=== PATIENT | male | born 1960 | race Caucasian/White ===

== ENCOUNTER 2023-09-19 23:51 | Inpatient (IN) | payer MEDICAID, SELFPAY ==
[2023-09-19 23:52] VITALS: BP 128/71; PULSE 67; RESP 18; TEMP 36.7; O2SAT 99; BMI 22.6
--- NOTE | 2023-09-20 00:12 | ECG_ITS ---
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 Measurements Intervals [place] Rate: 64 P: 57 OR: 200 QRS: 89 QRSD: 154 T: 45 QT: 474 QTc: 492 Interpretive Statements SINUS RHYTHM RIGHT BUNDLE BRANCH BLOCK [120+ ms QRS DURATION, UPRIGHT V1, 40+ ms S IN I/aVL/V4/V5/V6] No previous ECG available for comparison Electronically Signed On 09-20-2023 6:52:44 GENERAL ACCOUNTANT by Christo Durbin M.D. [id number]
--- NOTE | 2023-09-20 00:12 | CTR_ITS ---
PROCEDURE INFORMATION: Exam: CT Abdomen And Pelvis Without Contrast Exam date and time: 09/20/2023 12:49 AM Age: 63 years old Clinical indication: Abdominal pain; Generalized; Prior surgery; Surgery date: 6+ months; Surgery type: Gb/appy, intestines removed; Patient HX: Patient having halluncinations, nausea, vomitting, patient says he has had intermittent pain since his surgeries over the summer; Additional info: Abd pain, n/v/d TECHNIQUE: Imaging protocol: Computed tomography of the abdomen and pelvis without contrast. Radiation optimization: All CT scans at this facility use at least one of these dose optimization techniques: automated exposure control; mA and/or kV adjustment per patient size (includes targeted exams where dose is matched to clinical indication); or iterative reconstruction. COMPARISON: No relevant prior studies available. RADIATION DOSE METRICS: Total DLP (mGy-cm): 368 FINDINGS: Liver: Normal. No mass. Gallbladder and bile ducts: Normal. No calcified stones. No ductal dilation. Pancreas: Normal. No ductal dilation. Spleen: Normal. No splenomegaly. Adrenal glands: There is a 7 mm hypodensity in the left adrenal gland measuring -7 Hounsfield units consistent with a benign adrenal adenoma. Kidneys and ureters: There is a nonobstructing 3 mm stone in the right kidney. No hydronephrosis or hydroureter. Stomach and bowel: The cecum is located in the left upper quadrant. Moderate stool burden with no bowel obstruction. Appendix: The appendix is absent. Intraperitoneal space: Unremarkable. No free air. No significant fluid collection. Vasculature: Unremarkable. No abdominal aortic aneurysm. Lymph nodes: Unremarkable. No enlarged lymph nodes. Urinary bladder: Unremarkable as visualized. Reproductive: Unremarkable as visualized. Bones/joints: Moderate degenerative disc disease at L2-L3. Soft tissues: Unremarkable. CT/CT abdomen pelvis wo con [id number] IMPRESSION: 1. The gallbladder is present and images normally. This has not been removed. 2. The appendix is absent. 3. No bowel anastomoses identified to suggest prior bowel resection. 4. Moderate stool burden with no bowel obstruction or inflammatory process associated with the bowel. 5. Incidental note is made of the cecum located in the left upper quadrant. COMMENTS: Consistent with the [employer]'s Incidental Findings Committee white paper (J Am Dorcas Radiol 2017): Any incidental adrenal lesion less than 1 cm is likely benign. No follow-up imaging is recommended for these lesions per consensus recommendations based on imaging criteria. Further lab evaluation could be pursued if warranted based on clinical findings.
--- NOTE | 2023-09-20 00:23 | ED.C_ITS ---
Documented by User: CORWIN Hugo 09/22/23 14:07 HPI - Psych 2 General: Chief Complaint: Psychiatric Symptoms Stated Complaint: visual/auditory hallucinations Time Seen by Provider: 09/20/23 00:04 History of Present Illness: 63-year-old male patient comes in today from home for concerns of increasing auditory hallucinations. Family had called EMS to transport patient due to increasing paranoid thoughts of the police out to get him and wandering away from home and hiding in the [place]. Patient is cooperative and calm. Patient reports that he has not been taking his medicine like he should because his stomach's been hurting him for the last week. Patient reports when he takes his medicine his stomach hurts. Patient appears nontoxic. I talk with family member his daughter who his his main caregiver she helps manage his medications and make sure that they are set up and he is taking them. She is known that he has missed several doses of his medicine over the last week. Patient endorses not taking his medication but did take his medicine today as set up. Besides schizophrenia and bipolar disorder, patient also has diabetes, neuropathy, chronic constipation, angina, GERD. Review of Systems 2 General: Reports: 10 or more systems reviewed and unremarkable except in HPI and below GI: Reports: abdominal pain and diarrhea; Denies: nausea, vomiting or constipation : Denies: difficulty urinating PFSH ED 2 PFSH: Family History (Updated 08/22/23 @ 08:37 by Lorenza Carreon LPN) Grandmother Cancer paternal Diabetes Grandfather Cancer paternal Mother Diabetes Denies family history of Heart disease Chronic kidney disease (CKD) Thyroid disease Stroke Physical Exam 2 Const: COMMON NORMALS: alert HENMT: COMMON NORMALS: normocephalic HEAD & SCALP: normocephalic Neck/C-Spine: COMMON NORMALS: full ROM Chest: COMMONS NORMALS: normal palpation of entire chest wall Resp: COMMON NORMALS: normal respiratory effort GI: PALPATION: Yes Firmness to palpation present (GI) (Mildly distended), Yes Tenderness to palpation present (GI) (General tenderness) and Yes Other GI palpation findings present (Central line abdominal scar from sternum to pubis) : COMMON NORMALS: Yes no CVA tenderness BLADDER/KIDNEY EXAM: Yes no CVA tenderness Back/Pelvis: COMMON NORMALS: no CVA tenderness Extremity: COMMON NORMALS: no pedal edema Neuro: SENSORIUM/ORIENTATION: Yes alert Psych: COMMON NORMALS: Normal thought process present and cooperative A PPEARANCE: Yes unkempt ATTITUDE: Yes calm and Yes Guarded attititude/behavior present ACTIVITY/MOTOR BEHAVIOR: Yes appropriate eye contact SPEECH: Yes soft MOOD & AFFECT: Yes anxious THOUGHT PROCESS: Normal thought process present THOUGHT CONTENT: No Suicidality present and No Homicidality present ATTENTION/CONCENTRATION: Yes attention grossly intact INSIGHT: Fair insight present (Psych) JUDGEMENT: Fair judgement present (Psych) Skin: COMMON NORMALS: turgor normal GENERAL SKIN EXAM: turgor normal Course 2 Vital Signs: Vital signs: Vital Signs Temperature 97.9 F 09/22/23 06:00 Pulse Rate 104 H 09/22/23 06:00 Respiratory Rate 18 09/22/23 06:00 Blood Pressure 100/66 09/22/23 06:00 Pulse Oximetry 99 09/22/23 06:00 Oxygen Delivery Me thod Room Air 09/21/23 06:00 MDM - Psych Medical Decision Making Patient came [facility] for concerns of increasing paranoid thoughts and auditory hallucinations with wandering from home. Daughter who manages patient's medications for him noted that patient has been hiding in the [place] that time and avoiding contact. She has also noticed patient had not been taking his meds like he has been set up for. Daughter is concerned patient may run away or may become ill from not taking his routine health medications. Patient appears nontoxic. Lungs are clear to auscultation. Abdomen soft but slightly distended and tender to touch. Patient does have a central line abdominal scar from prior surgery. Patient states he had part of his bowel removed and also had his gallbladder and appendix removed. Patient cannot say why he had part of his bowel removed. Differential diagnosis includes but not limited to acute psychosis, chronic schizophrenia, bowel obstruction, gastroenteritis, diverticulitis, anxiety, poor medication compliance. Lab Data 09/20/23 00:42 09/20/23 00:42 Radiology Impressions Abdomen/Pelvis CT 09/20/23 00:12 IMPRESSION: 1. The gallbladder is present and images normally. This has not been removed. 2. The appendix is absent. 3. No bowel anastomoses identified to suggest prior bowel resection. 4. Moderate stool burden with no bowel obstruction or inflammatory process associated with the bowel. 5. Incidental note is made of the cecum located in the left upper quadrant. COMMENTS: Consistent with the [employer]'s Incidental Findings Committee white paper (J Am Dorcas Radiol 2017): Any incidental adrenal lesion less than 1 cm is likely benign. No follow-up imaging is recommended for these lesions per consensus recommendations based on imaging criteria. Further lab evaluation could be pursued if warranted based on clinical findings. Laboratory Results WBC 6.73 10^3/uL (3.29-11.43) 09/20/23 00:42 RBC 4.70 10^6/uL (3.85-5.65) 09/20/23 00:42 Hgb 14.10 g/dL (11.27-16.99) 09/20/23 00:42 Hct 40.4 % (37-53) 09/20/23 00:42 MCV 86.0 fl (82-101) 09/20/23 00:42 MCH 30.0 pg (27-33) 09/20/23 00:42 MCHC 34.9 g/dL (30-55) 09/20/23 00:42 RDW 11.9 % (12.1-15.1) L 09/20/23 00:42 Plt Count 205 10^3/cmm (157-399) 09/20/23 00:42 MPV 8.2 fL (7.4-10.4) 09/20/23 00:42 Neut % (Auto) 53.8 % 09/20/23 00:42 Lymph % (Auto) 35.5 % 09/20/23 00:42 [place] % (Auto) 8.3 % 09/20/23 00:42 Eos % (Auto) 1.5 % 09/20/23 00:42 Baso % (Auto) 0.6 % 09/20/23 00:42 Neut # (Auto) 3.62 10^3/uL (1.8-7.7) 09/20/23 00:42 Lymph # (Auto) 2.4 10^3/uL (0.8-4.8) 09/20/23 00:42 [place] # (Auto) 0.6 10^3/uL (0.2-0.9) 09/20/23 00:42 Eos # (Auto) 0.1 10^3/uL (0.0-0.8) 09/20/23 00:42 Baso # (Auto) 0.0 10^3/uL (0.0-0.1) 09/20/23 00:42 Nucleated RBC % (auto) 0 % 09/20/23 00:42 Nucleated RBCs # 0.0 /100WBC 09/20/23 00:42 Sodium 139 mmol/L (136-145) 09/20/23 00:42 Potassium 3.6 mmol/L (3.5-5.1) 09/20/23 00:42 Chloride 100 mmol/L (98-107) 09/20/23 00:42 Carbon Dioxide 23 mmol/L (22-29) 09/20/23 00:42 Anion Gap 19.6 (5-19) H 09/20/23 00:42 BUN 15 mg/dL (8-23) 09/20/23 00:42 Creatinine 0.7 mg/dL (0.7-1.2) 09/20/23 00:42 GFR Calculation 114.3 mL/min (90-130) 09/20/23 00:42 Glucose 93 mg/dL (65-115) 09/20/23 00:42 Calculated Osmolality 289 mOsm/kg (285-295) 09/20/23 00:42 Calcium 10.4 mg/dL (8.5-10.5) 09/20/23 00:42 Total Bilirubin 0.6 mg/dL (0.15-1.2) 09/20/23 00:42 AST 14 U/L (0-40) 09/20/23 00:42 ALT 19 U/L (0-41) 09/20/23 00:42 Alkaline Phosphatase 85 U/L (40-130) 09/20/23 00:42 Troponin T Baseline < 6 ng/L (0-15) 09/20/23 00:42 Total Protein 7.0 g/dL (6.6-8.7) 09/20/23 00:42 Albumin 4.7 g/dL (3.5-5.2) 09/20/23 00:42 Globulin 2.3 g/dL (1.3-4.6) 09/20/23 00:42 Lipase 25 U/L (13-60) 09/20/23 00:42 TSH 3.62 uIU/mL (0.27-4.20) 09/20/23 00:42 Urine Color Yellow (Yellow) 09/20/23 01:30 Urine Appearance Clear (CLEAR) 09/20/23 01:30 Urine pH 8 (5-7) H 09/20/23 01:30 Ur Specific [place] 1.010 (1.005-1.030) 09/20/23 01:30 Urine Protein Neg (Negative) 09/20/23 01:30 Urine Glucose (UA) Norm (Normal) 09/20/23 01:30 Urine Ketones Negative (Negative) 09/20/23 01:30 Urine Blood Neg (Negative) 09/20/23 01:30 Urine Nitrate Negative (Negative) 09/20/23 01:30 Urine Bilirubin Neg (Negative) 09/20/23 01:30 Prot Sulfosalicylic Acd Negative (Negative) 09/20/23 01:30 Urine Urobilinogen Neg mg/dL (Negative) 09/20/23 01:30 Ur Leukocyte Esterase Negative (Negative) 09/20/23 01:30 Salicylates < 0.3 mg/dL (3-10) L 09/20/23 00:42 Urine Opiates Screen Negative ng/mL (Negative) 09/20/23 01:30 Acetaminophen < 5.0 ug/mL (10-30) L 09/20/23 00:42 Ur Barbiturates Screen Negative ng/mL (Negative) 09/20/23 01:30 Ur Phencyclidine Scrn Negative ng/mL (Negative) 09/20/23 01:30 Ur Amphetamines Screen Negative ng/mL (Negative) 09/20/23 01:30 U Benzodiazepines Scrn Positive ng/mL (Negative) H 09/20/23 01:30 Urine Cocaine Screen Negative ng/mL (Negative) 09/20/23 01:30 U Marijuana (THC) Screen Negative ng/mL (Negative) 09/20/23 01:30 Ethyl Alcohol < 10 mg/dL (0-10) 09/20/23 00:42 Discharge Plan Discharge Patient Disposition: Admitted As Inpatient Admit Provider: Jus Figueroa Clinical Impression: Acute psychosis, Noncompliance with medication regimen Condition: Stable Coding Level of Care Code ED Neurology Director for Chg Fwd Documented by User: Michael Dugan DO 09/20/23 05:05 HPI - Psych 2 General: Chief Complaint: Psychiatric Symptoms Stated Complaint: visual/auditory hallucinations Time Seen by Provider: 09/20/23 00:04 [facility] ED 2 PFSH: Family History (Updated 08/22/23 @ 08:37 by Lorenza Carreon LPN) Grandmother Cancer paternal Diabetes Grandfather Cancer paternal Mother Diabetes Denies family history of Heart disease Chronic kidney disease (CKD) Thyroid disease Stroke Course 2 Vital Signs: Vital signs: Vital Signs Temperature 97.9 F 09/22/23 06:00 Pulse Rate 104 H 09/22/23 06:00 Respiratory Rate 18 09/22/23 06:00 Blood Pressure 100/66 09/22/23 06:00 Pulse Oximetry 99 09/22/23 06:00 Oxygen Delivery Me thod Room Air 09/21/23 06:00 [facility] - Psych Medical Decision Making Patient came in tonight for concerns of increasing paranoid thoughts and auditory hallucinations with wandering from home. Daughter who manages patient's medications for him noted that patient has been hiding in the [place] that time and avoiding contact. She has also noticed patient had not been taking his meds like he has been set up for. Daughter is concerned patient may run away or may become ill from not taking his routine health medications. Patient appears nontoxic. Lungs are clear to auscultation. Abdomen soft but slightly distended and tender to touch. Patient does have a central line abdominal scar from prior surgery. Patient states he had part of his bowel removed and also had his gallbladder and appendix removed. Patient cannot say why he had part of his bowel removed. Differential diagnosis includes but not limited to acute psychosis, chronic schizophrenia, bowel obstruction, gastroenteritis, diverticulitis, anxiety, poor medication compliance. Dr. Figueroa was consulted who agreed to accept the patient to [facility] for further evaluation and treatment. Lab Data 09/20/23 00:42 09/20/23 00:42 Radiology Impressions Abdomen/Pelvis CT 09/20/23 00:12 IMPRESSION: 1. The gallbladder is present and images normally. This has not been removed. 2. The appendix is absent. 3. No bowel anastomoses identified to suggest prior bowel resection. 4. Moderate stool burden with no bowel obstruction or inflammatory process associated with the bowel. 5. Incidental note is made of the cecum located in the left upper quadrant. COMMENTS: Consistent with the [employer]'s Incidental Findings Committee white paper (J Am Dorcas Radiol 2017): Any incidental adrenal lesion less than 1 cm is likely benign. No follow-up imaging is recommended for these lesions per consensus recommendations based on imaging criteria. Further lab evaluation could be pursued if warranted based on clinical findings. Laboratory Results WBC 6.73 10^3/uL (3.29-11.43) 09/20/23 00:42 RBC 4.70 10^6/uL (3.85-5.65) 09/20/23 00:42 Hgb 14.10 g/dL (11.27-16.99) 09/20/23 00:42 Hct 40.4 % (37-53) 09/20/23 00:42 MCV 86.0 fl (82-101) 09/20/23 00:42 MCH 30.0 pg (27-33) 09/20/23 00:42 MCHC 34.9 g/dL (30-55) 09/20/23 00:42 RDW 11.9 % (12.1-15.1) L 09/20/23 00:42 Plt Count 205 10^3/cmm (157-399) 09/20/23 00:42 MPV 8.2 fL (7.4-10.4) 09/20/23 00:42 Neut % (Auto) 53.8 % 09/20/23 00:42 Lymph % (Auto) 35.5 % 09/20/23 00:42 [place] % (Auto) 8.3 % 09/20/23 00:42 Eos % (Auto) 1.5 % 09/20/23 00:42 Baso % (Auto) 0.6 % 09/20/23 00:42 Neut # (Auto) 3.62 10^3/uL (1.8-7.7) 09/20/23 00:42 Lymph # (Auto) 2.4 10^3/uL (0.8-4.8) 09/20/23 00:42 [place] # (Auto) 0.6 10^3/uL (0.2-0.9) 09/20/23 00:42 Eos # (Auto) 0.1 10^3/uL (0.0-0.8) 09/20/23 00:42 Baso # (Auto) 0.0 10^3/uL (0.0-0.1) 09/20/23 00:42 Nucleated RBC % (auto) 0 % 09/20/23 00:42 Nucleated RBCs # 0.0 /100WBC 09/20/23 00:42 Sodium 139 mmol/L (136-145) 09/20/23 00:42 Potassium 3.6 mmol/L (3.5-5.1) 09/20/23 00:42 Chloride 100 mmol/L (98-107) 09/20/23 00:42 Carbon Dioxide 23 mmol/L (22-29) 09/20/23 00:42 Anion Gap 19.6 (5-19) H 09/20/23 00:42 BUN 15 mg/dL (8-23) 09/20/23 00:42 Creatinine 0.7 mg/dL (0.7-1.2) 09/20/23 00:42 GFR Calculation 114.3 mL/min (90-130) 09/20/23 00:42 Glucose 93 mg/dL (65-115) 09/20/23 00:42 Calculated Osmolality 289 mOsm/kg (285-295) 09/20/23 00:42 Calcium 10.4 mg/dL (8.5-10.5) 09/20/23 00:42 Total Bilirubin 0.6 mg/dL (0.15-1.2) 09/20/23 00:42 AST 14 U/L (0-40) 09/20/23 00:42 ALT 19 U/L (0-41) 09/20/23 00:42 Alkaline Phosphatase 85 U/L (40-130) 09/20/23 00:42 Troponin T Baseline < 6 ng/L (0-15) 09/20/23 00:42 Total Protein 7.0 g/dL (6.6-8.7) 09/20/23 00:42 Albumin 4.7 g/dL (3.5-5.2) 09/20/23 00:42 Globulin 2.3 g/dL (1.3-4.6) 09/20/23 00:42 Lipase 25 U/L (13-60) 09/20/23 00:42 TSH 3.62 uIU/mL (0.27-4.20) 09/20/23 00:42 Urine Color Yellow (Yellow) 09/20/23 01:30 Urine Appearance Clear (CLEAR) 09/20/23 01:30 Urine pH 8 (5-7) H 09/20/23 01:30 Ur Specific [place] 1.010 (1.005-1.030) 09/20/23 01:30 Urine Protein Neg (Negative) 09/20/23 01:30 Urine Glucose (UA) Norm (Normal) 09/20/23 01:30 Urine Ketones Negative (Negative) 09/20/23 01:30 Urine Blood Neg (Negative) 09/20/23 01:30 Urine Nitrate Negative (Negative) 09/20/23 01:30 Urine Bilirubin Neg (Negative) 09/20/23 01:30 Prot Sulfosalicylic Acd Negative (Negative) 09/20/23 01:30 Urine Urobilinogen Neg mg/dL (Negative) 09/20/23 01:30 Ur Leukocyte Esterase Negative (Negative) 09/20/23 01:30 Salicylates < 0.3 mg/dL (3-10) L 09/20/23 00:42 Urine Opiates Screen Negative ng/mL (Negative) 09/20/23 01:30 Acetaminophen < 5.0 ug/mL (10-30) L 09/20/23 00:42 Ur Barbiturates Screen Negative ng/mL (Negative) 09/20/23 01:30 Ur Phencyclidine Scrn Negative ng/mL (Negative) 09/20/23 01:30 Ur Amphetamines Screen Negative ng/mL (Negative) 09/20/23 01:30 U Benzodiazepines Scrn Positive ng/mL (Negative) H 09/20/23 01:30 Urine Cocaine Screen Negative ng/mL (Negative) 09/20/23 01:30 U Marijuana (THC) Screen Negative ng/mL (Negative) 09/20/23 01:30 Ethyl Alcohol < 10 mg/dL (0-10) 09/20/23 00:42 All radiology interpretation(s) finalized by discharge EKG Data EKG 1: I personally reviewed and interpreted this EKG as follows: EKG interpretation date: 09/20/23 EKG interpretation time: 00:15 Prior EKG tracings: not available for review Interpretation: EKG showed ventricular rate 64 beats minute, IA interval 200, QRS duration 154, QTc 484, sinus rhythm Discharge Plan Discharge Patient Disposition: Admitted As Inpatient Admit Provider: Jus Figueroa Clinical Impression: Acute psychosis, Noncompliance with medication regimen Condition: Stable Coding Level of Care Code ED Neurology Director for Jimena Muller
[2023-09-20 00:47] LABS: Basophils % 0.6 %; Eosinophils # 0.1 10^3/uL (0.0-0.8); Eosinophils % 1.5 %; Hematocrit 40.4 % (37-53); Lymphocytes # 2.4 10^3/uL (0.8-4.8); Lymphocytes % 35.5 %; Mean Corpuscular HGB Conc 34.9 g/dL (30-55); Mean Platelet Volume 8.2 fL (7.4-10.4); Monocytes # 0.6 10^3/uL (0.2-0.9); Monocytes % 8.3 %; Neutrophils # 3.62 10^3/uL (1.8-7.7); Neutrophils % 53.8 %; Nucleated Red Blood Cells % 0 %; Platelet Count 205 10^3/cmm (157-399); Red Cell Distribution Width 11.9 % (12.1-15.1); White Blood Count 6.73 10^3/uL (3.29-11.43)
[2023-09-20 01:08] LABS: Troponin(5th) Baseline < 6 ng/L (0-15)
[2023-09-20 01:15] LABS: Alanine Aminotransferase 19 U/L (0-41); Albumin Level 4.7 g/dL (3.5-5.2); Alkaline Phosphatase 85 U/L (40-130); Anion Gap 19.6 (5-19); Aspartate Amino Transferase 14 U/L (0-40); Blood Urea Nitrogen 15 mg/dL (8-23); Calcium 10.4 mg/dL (8.5-10.5); Carbon Dioxide 23 mmol/L (22-29); Chloride 100 mmol/L (98-107); Globulin 2.3 g/dL (1.3-4.6); Glomerular Filtration Rate 114.3 mL/min (90-130); Glucose 93 mg/dL (65-115); Lipase 25 U/L (13-60); Osmolality Calculated 289 mOsm/kg (285-295); Potassium 3.6 mmol/L (3.5-5.1); Sodium 139 mmol/L (136-145); Thyroid Stimulating Hormone 3.62 uIU/mL (0.27-4.20); Total Bilirubin 0.6 mg/dL (0.15-1.2)
[2023-09-20 01:22] LABS: Acetaminophen < 5.0 ug/mL (10-30); Alcohol Level < 10 mg/dL (0-10); Salicylate < 0.3 mg/dL (3-10)
[2023-09-20 01:43] LABS: Add Urine Microscopic? NO; Charge for UA Resulting for Rev
[2023-09-20 01:50] LABS: Bilirubin Urine Neg (Negative); Blood Urine Neg (Negative); Glucose Urine UA Norm (Normal); Ketones Urine Negative (Negative); Leukocyte Esterase Urine Negative (Negative); Nitrate Urine Negative (Negative); Protein Urine Neg (Negative); Sulfosalicylic Acid Urine Negative (Negative); Urine Appearance Clear (CLEAR); Urine Color Yellow (Yellow); Urobilinogen Urine Neg (Negative); pH Urine 8 (5-7)
--- NOTE | 2023-09-20 01:57 | PC.NURSE ---
Pt. states that he self cath's at home. Pt. had quick cath put and in and removed to drain bladder. 350ml drained
[2023-09-20 02:06] LABS: Amphetamines Screen Urine Negative (Negative); Barbiturates Screen Urine Negative (Negative); Benzodiazepines Screen Urine Positive (Negative); Cocaine Screen Urine Negative (Negative); Opiate Screen Urine Negative (Negative); PCP Screen Urine Negative (Negative); THC Screen Urine Negative (Negative)
--- NOTE | 2023-09-20 02:12 | ECG_ITS ---
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 Measurements Intervals [place] Rate: 63 P: 34 MA: 164 QRS: 75 QRSD: 154 T: 37 QT: 475 QTc: 488 Interpretive Statements SINUS RHYTHM RIGHT BUNDLE BRANCH BLOCK [120+ ms QRS DURATION, UPRIGHT V1, 40+ ms S IN I/aVL/V4/V5/V6] Compared to ECG 09/20/2023 00:15:42 No significant changes Electronically Signed On 09-20-2023 6:55:17 VICE CHAIRMAN by Christo Durbin M.D. [id number]
[2023-09-20 02:43] VITALS: BP 88/47; PULSE 106; RESP 18; TEMP 36.4; O2SAT 100
--- NOTE | 2023-09-20 03:33 | PC.ADMIT ---
[email or web address] [facility] Admission Note: The patient,Christo Moss,63 y/o, was given written information regarding hospital policies, unit procedures and contact persons. Patient's smoking status: . Vital Signs - 8 hr 09/19/23 23:52 09/20/23 02:43 09/20/23 03:23 Temperature 98.0 F 97.5 F L Pulse Rate 67 106 H Respiratory Rate 18 18 Blood Pressure 128/71 88/47 Pulse Oximetry 99 100 Oxygen Delivery Method Room Air Room Air ADMITTED FROM ER VIA WHEELCHAIR, SECURITY AND ER STAFF AT 0244 AM. PT IS VOLUNTARY. STATES HE CAME INTO TO THE ER TODAY DUE TO MY MEDS NOT WORKING, AND SOMETIMES I CAN'T TAKE THEM BECAUSE THEY MAKE MY STOMACH HURT, THEN I STARTED HEARING VOICES AND I THOUGHT THE POLICE WAS AFTER ME BUILDING A CASE AGAINST ME. PT REPORTS A LENGTHY PSYCH HISTORY AND STATES HE HAS BEEN IN AT LEAST 17 PSYCHIATRIC HOSPITALS. ADMITS TO ONE SUICIDE ATTEMPT WHEN HE WAS 18 WHEN HE USED A RAZOR BLADE TO CUT HIS ARM, THEN TOOK A BOTTLE OF ASPIRIN. DENIES SI/HI AND AVH AT THIS TIME. PT VOIDS PER SELF CATHERIZATION THAT HE IS ABLE TO DO HIMSELF, STATES HE CATHS 4 TIMES A DAY. ER BROUGHT SUPPLIES TO NPU SO PT HAD THEM AVAILABLE TO USE. DENIES PAIN. DENIES SUBSTANCE ABUSE AND ALCOHOL ABUSE, UDS WAS NEGATIVE EXCEPT FOR BENZOS WHICH PT IS PRESCRIBED. PT REPORTS LAST BM 4 DAYS AGO AND REQUESTS SOMETHING SO I CAN GO NUMBER 2. PT WAS ASSURED THAT HIS DAUGHTER GAVE US HIS MED LIST AND THIS RN WOULD TALK TO DR. OLIVERA AND GET MEDICATIONS RESTARTED. ORDERS RECEIVED FOR PT TO USE WALKER AND PT CONSULT, PT WILL STAND UP AND LOOSE HIS BALANCE EASILY. PT WAS ORIENTATED TO UNIT, SAFETY RULES, ETC. ALL QUESTIONS ANSWERED AND SUPPORT WAS VOICED.
[2023-09-20] MEDS: buPROPion XL (24 HR) 150 mg Tablet PO (06:03)
[2023-09-20] MEDS: levothyroxine 88 mcg Tablet PO (06:03)
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
[2023-09-20 09:00] VITALS: BP 107/50; PULSE 77; RESP 20
[2023-09-20] MEDS: gabapentin 300 mg Capsule PO ×3 (10:06→20:22)
[2023-09-20] MEDS: metformin 500 mg Tablet PO (10:06)
[2023-09-20] MEDS: duloxetine 60 mg Capsule PO ×2 (10:06→18:18)
[2023-09-20] MEDS: hyDROXYzine 25 mg Capsule PO ×2 (10:07→18:18)
[2023-09-20] MEDS: aspirin 81 mg EC Tablet PO (10:08)
[2023-09-20] MEDS: pantoprazole DR 40 mg Tablet PO (10:08)
[2023-09-20] MEDS: ziprasidone hcl 40 mg Capsule 80 MG PO (10:08)
[2023-09-20] MEDS: atorvastatin 40 mg Tablet 80 MG PO (10:08)
[2023-09-20] MEDS: dicyclomine 10 mg Capsule PO ×3 (10:09→20:22)
[2023-09-20] MEDS: cetirizine 10 mg Tablet PO (10:09)
[2023-09-20 10:18] VITALS: BP 111/71; PULSE 78; RESP 18
[2023-09-20 10:19] LABS: Glucose Point of Care 102 mg/dL (70-110)
--- NOTE | 2023-09-20 11:02 | ECG_ITS ---
[facility] Test Date: 2023-09-20 Pat Name: Christo Msos Department: Room: 124 Gender: Male Protein Scientist: : 1960 Requested By: Sahil Mchugh Order Number: [id number] Shiraz MD: Fabian Trejo M.D. Measurements Intervals [place] Rate: 74 P: 68 MA: 186 QRS: 91 QRSD: 151 T: 47 QT: 431 QTc: 479 Interpretive Statements SINUS RHYTHM RIGHT BUNDLE BRANCH BLOCK [120+ ms QRS DURATION, UPRIGHT V1, 40+ ms S IN I/aVL/V4/V5/V6] Compared to ECG 09/20/2023 02:08:35 No significant changes Electronically Signed On 09-20-2023 11:29:01 BALING MACHINE TENDER by Fabian Trejo M.D. [email or web address] hospital [id number]
[2023-09-20 11:55] LABS: Glucose Point of Care 108 mg/dL (70-110)
[2023-09-20 12:27] VITALS: BP 112/74; PULSE 78
[2023-09-20] MEDS: folic acid 1 mg Tablet PO (13:04)
[2023-09-20] MEDS: thiamine 100 mg Tablet PO (13:04)
[2023-09-20] MEDS: multivitamin therapeutic Tablet 1 TAB PO (13:04)
--- NOTE | 2023-09-20 13:05 | PC.NURSE ---
6717 pt stated when ask about needing the self catheter pt stated he had urinated just a minute ago on his own with out requiring the zamora, pt stated he can go on his own at times .
[2023-09-20 14:00] VITALS: BP 106/71; PULSE 92; RESP 16; TEMP 36.6; O2SAT 99
[2023-09-20 17:30] LABS: Glucose Point of Care 121 mg/dL (70-110)
[2023-09-20] MEDS: trazodone 100 mg Tablet PO (20:22)
[2023-09-20] MEDS: CLONazepam 1 mg Tablet PO (20:22)
[2023-09-20 21:34] VITALS: BP 142/83
[2023-09-21 06:00] VITALS: BP 96/62; PULSE 85; RESP 14; TEMP 36.4; O2SAT 96
[2023-09-21] MEDS: levothyroxine 88 mcg Tablet PO (06:21)
[2023-09-21] MEDS: buPROPion XL (24 HR) 150 mg Tablet PO (06:21)
[2023-09-21 07:42] LABS: Glucose Point of Care 115 mg/dL (70-110)
--- NOTE | 2023-09-21 07:59 | ECG_ITS ---
[facility] Test Date: 2023-09-21 Pat Name: Christo Moss Department: Room: 124 Gender: Male Hyperbaric Nurse: : 1960 Requested By: Christopher Brian Order Number: [id number] Shiraz MD: Drea Hidalgo M.D. Measurements Intervals [place] Rate: 72 P: 74 [place]: 179 QRS: 82 QRSD: 148 T: 38 QT: 421 QTc: 462 Interpretive Statements SINUS RHYTHM RIGHT BUNDLE BRANCH BLOCK [120+ ms QRS DURATION, UPRIGHT V1, 40+ ms S IN I/aVL/V4/V5/V6] Compared to ECG 09/20/2023 11:02:53 No significant changes Electronically Signed On 09-21-2023 21:59:57 OPTICAL GOODS WORKER by Drea Hidalgo M.D. [id number]
[2023-09-21] MEDS: duloxetine 60 mg Capsule PO ×2 (09:03→18:05)
[2023-09-21] MEDS: cetirizine 10 mg Tablet PO (09:03)
[2023-09-21] MEDS: thiamine 100 mg Tablet PO (09:03)
[2023-09-21] MEDS: pantoprazole DR 40 mg Tablet PO (09:03)
[2023-09-21] MEDS: aspirin 81 mg EC Tablet PO (09:03)
[2023-09-21] MEDS: gabapentin 300 mg Capsule PO ×3 (09:03→20:37)
[2023-09-21] MEDS: multivitamin therapeutic Tablet 1 TAB PO (09:03)
[2023-09-21] MEDS: atorvastatin 40 mg Tablet 80 MG PO (09:03)
[2023-09-21] MEDS: metformin 500 mg Tablet PO (09:03)
[2023-09-21] MEDS: dicyclomine 10 mg Capsule PO ×3 (09:03→20:37)
[2023-09-21] MEDS: hyDROXYzine 25 mg Capsule PO ×2 (09:03→18:05)
[2023-09-21] MEDS: folic acid 1 mg Tablet PO (09:03)
--- NOTE | 2023-09-21 09:09 | PC.NURSE ---
This nurse encouraged patient to straight cath himself. Patient stated that he had just voided and that he got a lot out. Patient stated that he can tell when he needs to void because he feels pressure in his umbilicus area. Patient encouraged to notify nurse if needs to straight cath, and with any other needs. Understanding was verbalized by patient. Will continue to routinely check on patient.
--- NOTE | 2023-09-21 10:43 | P.CONIM_ITS ---
Providers/Reason For Consult 2 Attending Physician: Jus Figueroa MD History of Present Illness History of Present Illness Christo Moss is a 63 year old male Medications/Allergies Home Medications Medication Instructions Recorded Confirmed Last Taken Type albuterol sulfate 90 mcg/actuation 2 puff inhalation Q6H PRN Cough 08/20/23 09/20/23 Unknown History aerosol inhaler aspirin 81 mg tablet,delayed 81 mg PO DAILY #30 tabs 08/20/23 09/20/23 1 Day Ago Rx release (Adult Aspirin Regimen) ~09/19/23 atorvastatin 80 mg tablet 80 mg PO DAILY #30 tabs 08/20/23 09/20/23 1 Day Ago Rx ~09/19/23 bupropion HCl 150 mg 24 hr tablet, 150 mg PO QAM 08/20/23 09/20/23 2 Days Ago History extended release ~09/18/23 cetirizine 10 mg capsule (All Day 10 mg PO DAILY ALLERGIES 08/20/23 09/20/23 1 Day Ago History Allergy (cetirizine)) ~09/19/23 docusate sodium 100 mg tablet 100 mg PO DAILY CONSTIPATION 08/20/23 09/20/23 3 Days Ago History ~09/17/23 duloxetine 60 mg capsule,delayed 60 mg PO BID #60 caps 08/20/23 09/20/23 1 Day Ago Rx release ~09/19/23 esomeprazole magnesium 40 mg 40 mg PO DAILY #30 caps 08/20/23 09/20/23 1 Day Ago Rx capsule,delayed release ~09/19/23 gabapentin 300 mg capsule 300 mg PO TID 08/20/23 09/20/23 1 Day Ago History ~09/19/23 hydroxyzine HCl 25 mg tablet 25 mg PO BID ANXIETY 08/20/23 09/20/23 1 Day Ago History ~09/19/23 isosorbide dinitrate 10 mg tablet 10 mg PO BID #60 tabs 08/20/23 09/20/23 1 Day Ago Rx ~09/19/23 lisinopril 5 mg tablet 5 mg PO DAILY #30 tabs 08/20/23 09/20/23 1 Day Ago Rx ~09/19/23 metoprolol succinate 25 mg 12.5 mg (1/2 x 25 mg) PO DAILY #30 08/20/23 09/20/23 2 Days Ago Rx tablet,extended release 24 hr tabs ~09/18/23 polyethylene glycol 3350 17 17 g PO DAILY PRN CONSTIPATION 08/20/23 09/20/23 Unknown History gram/dose oral powder ziprasidone HCl 80 mg capsule 80 mg PO BID #30 caps 08/20/23 09/20/23 1 Day Ago Rx ~09/19/23 clonazepam 0.5 mg tablet 0.5 mg PO BIDAC 08/22/23 09/20/23 1 Day Ago History ~09/19/23 dicyclomine 10 mg capsule 10 mg PO TID 09/20/23 09/20/23 09/20/23 History levothyroxine 88 mcg tablet 88 mcg PO QAM 09/20/23 09/20/23 1 Day Ago History ~09/19/23 metformin 500 mg tablet 500 mg PO DAILY 09/20/23 09/20/23 1 Day Ago History ~09/19/23 trazodone 100 mg tablet 200 mg PO BEDTIME 09/20/23 09/20/23 1 Day Ago History ~09/19/23 Allergies Allergy/AdvReac Type Severity Reaction Status Date / Time No Known Allergies Allergy Verified 09/20/23 03:34 Current Medications Generic Name Dose Route Start Last Admin Trade Name Freq PRN Reason Stop Dose Admin Aspirin 81 mg 09/20/23 09:00 09/21/23 09:03 Aspirin 81 Mg Ec Tablet PO 81 mg DAILY JAH Administration Atorvastatin Calcium 80 mg 09/20/23 09:00 09/21/23 09:03 Atorvastatin 40 Mg Tablet PO 80 mg DAILY JAH Administration Bupropion HCl 150 mg 09/20/23 06:00 09/21/23 06:21 Bupropion Xl (24 Hr) 150 Mg Tablet PO 150 mg QAM JAH Administration Cetirizine HCl 10 mg 09/20/23 09:00 09/21/23 09:03 Cetirizine 10 Mg Tablet PO 10 mg DAILY JAH Administration Clonazepam 1 mg 09/20/23 21:00 09/20/23 20:22 Clonazepam 1 Mg Tablet PO 1 mg BEDTIME JAH Administration Dicyclomine HCl 10 mg 09/20/23 09:00 09/21/23 09:03 Dicyclomine 10 Mg Capsule PO 10 mg TID JAH Administration Duloxetine HCl 60 mg 09/20/23 09:00 09/21/23 09:03 Duloxetine 60 Mg Capsule PO 60 mg BID JAH Administration Folic Acid 1 mg 09/20/23 12:45 09/21/23 09:03 Folic Acid 1 Mg Tablet PO 1 mg DAILY JAH Administration Gabapentin 300 mg 09/20/23 09:00 09/21/23 09:03 Gabapentin 300 Mg Capsule PO 300 mg TID JAH Administration Hydroxyzine Pamoate 25 mg 09/20/23 09:00 09/21/23 09:03 Hydroxyzine 25 Mg Capsule PO 25 mg BID JAH Administration Levothyroxine Sodium 88 mcg 09/20/23 06:00 09/21/23 06:21 Levothyroxine 88 Mcg Tablet PO 88 mcg QAM JAH Administration Metformin HCl 500 mg 09/20/23 09:00 09/21/23 09:03 Metformin 500 Mg Tablet PO 500 mg DAILY JAH Administration Multivitamins Therapeutic 1 tab 09/20/23 12:45 09/21/23 09:03 Multivitamin Therapeutic Tablet PO 1 tab DAILY JAH Administration Pantoprazole Sodium 40 mg 09/20/23 09:00 09/21/23 09:[address] 40 Mg Tablet PO 40 mg DAILY JAH Administration Thiamine Mononitrate 100 mg 09/20/23 12:45 09/21/23 09:03 Thiamine 100 Mg Tablet PO 100 mg DAILY JAH Administration Trazodone HCl 100 mg 09/20/23 21:00 09/20/23 20:22 Trazodone 100 Mg Tablet PO 100 mg BEDTIME JAH Administration PFSH Acute 2 PFSH: Family History (Updated 08/22/23 @ 08:37 by Lorenza Carreon LPN) Grandmother Cancer paternal Diabetes Grandfather Cancer paternal Mother Diabetes Denies family history of Heart disease Chronic kidney disease (CKD) Thyroid disease Stroke Vitals/I&O/Wt Last Vital Signs Temp 97.6 F 09/21/23 06:00 Pulse 85 09/21/23 06:00 Resp 14 09/21/23 06:00 BP 96/62 09/21/23 06:00 Pulse Ox 96 09/21/23 06:00 O2 Del Method Room Air 09/21/23 06:00 Weight last 48 hrs Weight 67.585 kg Data 09/20/23 00:42 09/20/23 00:42 Coding Level of Care Code Acute Code for Chg Fwd
--- NOTE | 2023-09-21 12:17 | PC.NURSE ---
This nurse attempted to have patient self-catheterization. Patient refused. Will continue to monitor
[2023-09-21 14:00] VITALS: BP 114/75; PULSE 77; RESP 14; TEMP 36.6; O2SAT 97
--- NOTE | 2023-09-21 14:07 | P.NPUPN_ITS ---
Subjective NPU 2 Subjective: Patient presents today reporting that he is feeling a little better. He continues to have some mild confusion per staff reports. He continues to be fairly unaware of his home circumstance. We talked about making sure that there was more mental clarity and that we have concerns about the use of benzodiazepines at this dose level moving forward. He agreed we would talk with family and possibly outpatient providers to figure out a plan. Mental Status Exam 2 MSE Comments: This is a slender white male in hospital scrubs looking older than his stated age with limited grooming and eye contact. No abnormal movements except for mild psychomotor retardation. Cooperative with exam in mild distress. Speech was normal to increased rate and decreased volume. Mood described as anxious, affect congruent. Thought process linear but occasionally disorganized. Thought content: Patient denied suicidal or homicidal ideation, there were no delusions reported but some paranoia or persecutory thinking noted, he denied visual hallucinations but did endorse some auditory hallucinations. Attention and concentration were limited and memory was unreliable but none were formally tested. He is alert and oriented x 3 but not purpose. Insight, judgment and impulse control are impaired. Vitals/I&O/Wt Last Vital Signs Temp 97.6 F 09/21/23 06:00 Pulse 85 09/21/23 06:00 Resp 14 09/21/23 06:00 BP 96/62 09/21/23 06:00 Pulse Ox 96 09/21/23 06:00 O2 Del Method Room Air 09/21/23 06:00 Weight last 48 hrs Weight 67.585 kg Data NPU 09/20/23 00:42 09/20/23 00:42 A&P Assessment and plan (1) Acute psychosis: (2) Noncompliance with medication regimen: (3) Diabetes: Qualifiers: Diabetes mellitus type: type 2 Diabetes mellitus exterminator termite insulin use: without exterminator termite use Diabetes mellitus complication status: without complication Qualified Code(s): E11.9 - Type 2 diabetes mellitus without complications (4) Hypothyroid: Qualifiers: Hypothyroidism type: unspecified Qualified Code(s): E03.9 - Hypothyroidism, unspecified Plan This is a 63-year-old male who presented to the emergency department with police with reports of bizarre behavior, wandering around and endorsing auditory hallucinations and appearing confused on interview with some concerns for either overtaking medications or missing doses with benzodiazepines involved. 1. Continue current medications. 2. encourage individual group and milieu therapy. 3. continue 15-minute med checks for safety. 4. Evaluate for safety and consider 96-hour hold if patient confusion continues. 5. Would consider CIWA protocol. 6. Appreciate hospitalists consult and will follow recommendations as indicated. 7. Get collateral information from family. Involuntary Hold Information 2 96 Hour Hold: 96 Hour Involuntary Admission: No Attestations NPU 2 Medical Necessity Statement*: Inpatient hospitalization is medically necessary and the clinically appropriate intervention at this time. We will monitor medications and make changes as indicated. Likely length of stay 3-5 days. Coding Level of Care Code Acute Code for Chg Fwd Diagnoses Acute psychosis F23 Noncompliance with medication regimen Z91.148 Type 2 diabetes mellitus without complication, without long-term current use of insulin E11.9 Diabetes mellitus type: type 2 Diabetes mellitus chcf insulin use: without chcf use Diabetes mellitus complication status: without complication Hypothyroidism, unspecified type E03.9 Hypothyroidism type: unspecified
--- NOTE | 2023-09-21 15:28 | PC.NURSE ---
This nurse asked patient if he needed supplies so he could self-cath. Patient denied need, stating that he was able void in the toilet. Patient denies abdominal discomfort. Patient stated that he voided some
--- NOTE | 2023-09-21 17:36 | PC.NURSE ---
Patient requested to self-cath. This nurse went to get supplies and had to help a few other patients. Once I returned to patient's room, patient stated that he had already voided and that he got a lot out. Patient self-catheterized himself and got minimal out, per patient. This nurse did not see it despite giving him a container and waiting outside the door. Patient denies abdominal discomfort.
[2023-09-21 19:58] VITALS: BP 108/62; PULSE 92; RESP 16; TEMP 36.3; O2SAT 93
[2023-09-21] MEDS: ziprasidone hcl 40 mg Capsule 80 MG PO (20:37)
[2023-09-21] MEDS: CLONazepam 1 mg Tablet PO (20:37)
[2023-09-21] MEDS: trazodone 100 mg Tablet PO (20:37)
[2023-09-22 06:00] VITALS: BP 100/66; PULSE 104; RESP 18; TEMP 36.6; O2SAT 99
[2023-09-22] MEDS: levothyroxine 88 mcg Tablet PO (06:17)
[2023-09-22] MEDS: buPROPion XL (24 HR) 150 mg Tablet PO (06:17)
[2023-09-22 07:30] LABS: Glucose Point of Care 89 mg/dL (70-110)
--- NOTE | 2023-09-22 08:18 | P.NPUPN_ITS ---
Subjective NPU 2 Subjective: Patient presented today continuing to be resistant to treatment in general. He has been not eating well per staff reports often less than 25% which has created problems with his blood sugars which he has been resistant to allowing us to take creating a challenging situation for managing his comorbid diabetes. Additionally he still seems to not appreciate level of limitations. We discussed getting an objective picture of his situation using a Diana evaluation. Mental Status Exam 2 MSE Comments: This is a slender white male in hospital scrubs looking older than his stated age with limited grooming and eye contact. No abnormal movements except for mild psychomotor retardation. Cooperative with exam in mild distress. Speech was normal to increased rate and decreased volume. Mood described as anxious, affect congruent. Thought process linear but occasionally disorganized. Thought content: Patient denied suicidal or homicidal ideation, there were no delusions reported but some paranoia or persecutory thinking noted, he denied visual hallucinations but did endorse some auditory hallucinations. Attention and concentration were limited and memory was unreliable but none were formally tested. He is alert and oriented x 3 but not purpose. Insight, judgment and impulse control are impaired. Vitals/I&O/Wt Last Vital Signs Temp 97.9 F 09/22/23 06:00 Pulse 104 H 09/22/23 06:00 Resp 18 09/22/23 06:00 BP 100/66 09/22/23 06:00 Pulse Ox 99 09/22/23 06:00 O2 Del Method Room Air 09/21/23 06:00 Weight last 48 hrs Weight 61.87 kg Weight 61.87 kg Data NPU 09/20/23 00:42 09/20/23 00:42 A&P Assessment and plan (1) Acute psychosis: (2) Noncompliance with medication regimen: (3) Diabetes: Qualifiers: Diabetes mellitus type: type 2 Diabetes mellitus terminal superintendent insulin use: without skilled nursing use Diabetes mellitus complication status: without complication Qualified Code(s): E11.9 - Type 2 diabetes mellitus without complications (4) Hypothyroid: Qualifiers: Hypothyroidism type: unspecified Qualified Code(s): E03.9 - Hypothyroidism, unspecified Plan This is a 63-year-old male who presented to the emergency department with police with reports of bizarre behavior, wandering around and endorsing auditory hallucinations and appearing confused on interview with some concerns for either overtaking medications or missing doses with benzodiazepines involved. 1. Continue current medications. 2. encourage individual group and milieu therapy. 3. continue 15-minute med checks for safety. 4. Evaluate for safety and consider 96-hour hold if patient confusion continues. Will need collateral information from daughter as to what baseline looks like and consider whether he needs to stay or she is prepared to take him home. Likely will do Diana. 5. Would consider CIWA protocol. 6. Appreciate hospitalists consult and will follow recommendations as indicated. 7. Get collateral information from family. Involuntary Hold Information 2 96 Hour Hold: 96 Hour Involuntary Admission: No Attestations NPU 2 Medical Necessity Statement*: Inpatient hospitalization is medically necessary and the clinically appropriate intervention at this time. We will monitor medications and make changes as indicated. Likely length of stay 1-3 days. Coding Level of Care Code Acute Code for g Fwd Diagnoses Acute psychosis F23 Noncompliance with medication regimen Z91.148 Type 2 diabetes mellitus without complication, without long-term current use of insulin E11.9 Diabetes mellitus type: type 2 Diabetes mellitus terminal superintendent insulin use: without terminal superintendent use Diabetes mellitus complication status: without complication Hypothyroidism, unspecified type E03.9 Hypothyroidism type: unspecified
[2023-09-22] MEDS: multivitamin therapeutic Tablet 1 TAB PO (09:44)
[2023-09-22] MEDS: aspirin 81 mg EC Tablet PO (09:44)
[2023-09-22] MEDS: thiamine 100 mg Tablet PO (09:44)
[2023-09-22] MEDS: metformin 500 mg Tablet PO (09:44)
[2023-09-22] MEDS: duloxetine 60 mg Capsule PO ×2 (09:44→17:54)
[2023-09-22] MEDS: atorvastatin 40 mg Tablet 80 MG PO (09:44)
[2023-09-22] MEDS: folic acid 1 mg Tablet PO (09:44)
[2023-09-22] MEDS: gabapentin 300 mg Capsule PO ×2 (09:44→15:55)
[2023-09-22] MEDS: pantoprazole DR 40 mg Tablet PO (09:44)
[2023-09-22] MEDS: dicyclomine 10 mg Capsule PO ×2 (09:44→15:55)
[2023-09-22] MEDS: hyDROXYzine 25 mg Capsule PO (09:44)
[2023-09-22] MEDS: cetirizine 10 mg Tablet PO (09:44)
--- NOTE | 2023-09-22 10:20 | PC.NURSE ---
pt states urinating on his own, refuses to self catherter at this time. notified doctor. no new orders.
[2023-09-22 14:00] VITALS: BP 146/66; PULSE 79; RESP 14; TEMP 36.7; O2SAT 100
--- NOTE | 2023-09-22 14:21 | PC.NURSE ---
spoke with pt daughter on the telephone, asked Claire if pt self cath while he has been in her home pt daughter stated that while her father has been at her home this past month he has urinated on his own with out self cathing. pt daughter Claire stated that at one time in the past it had been a problem with not urniating but that has resolved. informed doctor flower.
[2023-09-22 17:54] LABS: Glucose Point of Care 68 mg/dL (70-110)
--- NOTE | 2023-09-22 18:13 | PC.NURSE ---
pt bloodsugar 68, offered pt orange juice, chocolate ice cream after taking one bite of ice cream pt refused anything else. oj and ice cream left with pt. chocolate soymilk offered and left with pt. doctor informed of blood sugar-continue to monitor.
--- NOTE | 2023-09-22 18:25 | PC.NURSE ---
pt states nausea refuses any medication to help with symptoms.
--- NOTE | 2023-09-22 20:27 | PC.NURSE ---
Patient in room sitting on the edge of his for assessment. Informed patient that this nurse has his night meds ready, and if he prefers, this nurses will bring them to him. Patient firmly stated, I've taken all the medications I'm going to take today. I've been given more already today than I normally take. It was reported by off going shift that patient has refused to eat anything all day. This nurse told patient of concern due to his being diabetic, and was able to take this patient 2 bags of Navarre-mix, and patient did accept them.
[2023-09-23 06:00] VITALS: BP 113/73; PULSE 98; RESP 16; TEMP 36.9; O2SAT 98
[2023-09-23 06:05] LABS: Glucose Point of Care 85 mg/dL (70-110)
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
[2023-09-23 14:00] VITALS: BP 114/73; PULSE 109; RESP 14; O2SAT 98
[2023-09-23 14:04] LABS: Glucose Point of Care 85 mg/dL (70-110)
--- NOTE | 2023-09-23 14:21 | CT_ITS ---
WS: [id number] CT HEAD TECHNIQUE: Noncontrast CT of the head obtained from the skullbase to the vertex. CLINICAL INFORMATION: not responsive COMPARISON: None. DLP: 1128 mgy/cm All CT scans at [facility] use at least one of these dose optimization techniques: automated e xposure control; mA and/or kV adjustment per patient size (includes targeted exams where dose is matc hed to clinical indication); or iterative reconstruction. FINDINGS: No evidence of intracranial hemorrhage or mass effect. Ventricular system and basal cisterns are moraes nt. Mild small vessel changes with moderate parenchymal volume loss. No extra-axial fluid collections . No evidence of mass or mass effect. Paranasal sinuses and mastoid air cells are well aerated. .Normal visualized soft tissues. IMPRESSION: 1. No evidence of intracranial hemorrhage or mass effect. 2. Mild small vessel changes with moderate parenchymal volume loss. 3. No acute intracranial findings.
--- NOTE | 2023-09-23 14:37 | P.CONIM_ITS ---
Providers/Reason For Consult 2 Consulting Physician/Specialty*: Internal medicine/jessica jia Reason for Consult*: Unresponsiveness Attending Physician: Jus Figueroa MD History of Present Illness History of Present Illness Christo Moss is a 63 year old male 63-year-old male presented to the ER with concerns of increasing auditory hallucinations. Patient was having increasing paranoid thoughts and was hiding in the [place]. He had stopped taking his medication by himself. Caregiver was managing his medications previously and he had missed several doses. He does have a history of schizophrenia, bipolar disorder, diabetes, neuropathy, chronic constipation, angina, GERD. Patient is currently admitted to neuro psych unit. His medications were restarted. Patient was on 3 antihypertensives at home. From chart it seems that patient has been continuing to be resistant to treatment in general. He has not been eating well per staff and reports eating less than 25% which has caused his blood sugars to be low. Kells evaluation was ordered today. 96-hour hold was being considered if patient's confusion continues. Kells was ordered. Today RN went to room to give him a drink but found him completely unresponsive. RN rolled him over to try to wake him up but he was flaccid. Some sugar was placed in his mouth. BG checked was 81. Patient reported not eating. Rapid response was called. Patient unresponsive therefore code stroke was called and patient taken to CT. CT head negative for bleed. Final result is pending at this time. Dr. Gallardo assessed patient at bedside. No focal neuro deficits. I was called by Dr. Hanson to take over the case at this point. Patient not following commands at this time however it was noted that he did look around briefly at the nurse and myself then started looking away from us again. Did move all 4 extremities briefly Medications/Allergies Home Medications Medication Instructions Recorded Confirmed Last Taken Type albuterol sulfate 90 mcg/actuation 2 puff inhalation Q6H PRN Cough 08/20/23 09/20/23 Unknown History aerosol inhaler aspirin 81 mg tablet,delayed 81 mg PO DAILY #30 tabs 08/20/23 09/20/23 1 Day Ago Rx release (Adult Aspirin Regimen) ~09/19/23 atorvastatin 80 mg tablet 80 mg PO DAILY #30 tabs 08/20/23 09/20/23 1 Day Ago Rx ~09/19/23 bupropion HCl 150 mg 24 hr tablet, 150 mg PO QAM 08/20/23 09/20/23 2 Days Ago History extended release ~09/18/23 cetirizine 10 mg capsule (All Day 10 mg PO DAILY ALLERGIES 08/20/23 09/20/23 1 Day Ago History Allergy (cetirizine)) ~09/19/23 docusate sodium 100 mg tablet 100 mg PO DAILY CONSTIPATION 08/20/23 09/20/23 3 Days Ago History ~09/17/23 duloxetine 60 mg capsule,delayed 60 mg PO BID #60 caps 08/20/23 09/20/23 1 Day Ago Rx release ~09/19/23 esomeprazole magnesium 40 mg 40 mg PO DAILY #30 caps 08/20/23 09/20/23 1 Day Ago Rx capsule,delayed release ~09/19/23 gabapentin 300 mg capsule 300 mg PO TID 08/20/23 09/20/23 1 Day Ago History ~09/19/23 hydroxyzine HCl 25 mg tablet 25 mg PO BID ANXIETY 08/20/23 09/20/23 1 Day Ago History ~09/19/23 isosorbide dinitrate 10 mg tablet 10 mg PO BID #60 tabs 08/20/23 09/20/23 1 Day Ago Rx ~09/19/23 lisinopril 5 mg tablet 5 mg PO DAILY #30 tabs 08/20/23 09/20/23 1 Day Ago Rx ~09/19/23 metoprolol succinate 25 mg 12.5 mg (1/2 x 25 mg) PO DAILY #30 08/20/23 09/20/23 2 Days Ago Rx tablet,extended release 24 hr tabs ~09/18/23 polyethylene glycol 3350 17 17 g PO DAILY PRN CONSTIPATION 08/20/23 09/20/23 Unknown History gram/dose oral powder ziprasidone HCl 80 mg capsule 80 mg PO BID #30 caps 08/20/23 09/20/23 1 Day Ago Rx ~09/19/23 clonazepam 0.5 mg tablet 0.5 mg PO BIDAC 08/22/23 09/20/23 1 Day Ago History ~09/19/23 dicyclomine 10 mg capsule 10 mg PO TID 09/20/23 09/20/23 09/20/23 History levothyroxine 88 mcg tablet 88 mcg PO QAM 09/20/23 09/20/23 1 Day Ago History ~09/19/23 metformin 500 mg tablet 500 mg PO DAILY 09/20/23 09/20/23 1 Day Ago History ~09/19/23 trazodone 100 mg tablet 200 mg PO BEDTIME 09/20/23 09/20/23 1 Day Ago History ~09/19/23 Allergies Allergy/AdvReac Type Severity Reaction Status Date / Time No Known Allergies Allergy Verified 09/20/23 03:34 Current Medications Generic Name Dose Route Start Last Admin Trade Name Jim PRN Reason Stop Dose Admin Aspirin 81 mg 09/20/23 09:00 09/23/23 11:06 Aspirin 81 Mg Ec Tablet PO Not Given DAILY [facility] Atorvastatin Calcium 80 mg 09/20/23 09:00 09/23/23 11:07 Atorvastatin 40 Mg Tablet PO Not Given DAILY [facility] Bupropion HCl 150 mg 09/20/23 06:00 09/23/23 11:06 Bupropion Xl (24 Hr) 150 Mg Tablet PO Not Given QAM [facility] Cetirizine HCl 10 mg 09/20/23 09:00 09/23/23 11:07 Cetirizine 10 Mg Tablet PO Not Given DAILY [facility] Clonazepam 1 mg 09/20/23 21:00 09/23/23 00:44 Clonazepam 1 Mg Tablet PO Not Given BEDTIME [facility] Dicyclomine HCl 10 mg 09/20/23 09:00 09/23/23 11:08 Dicyclomine 10 Mg Capsule PO Not Given TID [facility] Duloxetine HCl 60 mg 09/20/23 09:00 09/23/23 11:08 Duloxetine 60 Mg Capsule PO Not Given BID [facility] Folic Acid 1 mg 09/20/23 12:45 09/23/23 11:09 Folic Acid 1 Mg Tablet PO Not Given DAILY [facility] Gabapentin 300 mg 09/20/23 09:00 09/23/23 11:09 Gabapentin 300 Mg Capsule PO Not Given TID [facility] Hydroxyzine Pamoate 25 mg 09/20/23 09:00 09/23/23 11:10 Hydroxyzine 25 Mg Capsule PO Not Given BID [facility] Levothyroxine Sodium 88 mcg 09/20/23 06:00 09/23/23 11:06 Levothyroxine 88 Mcg Tablet PO Not Given QAM [facility] Metformin HCl 500 mg 09/20/23 09:00 09/23/23 11:10 Metformin 500 Mg Tablet PO Not Given DAILY JAH Metoprolol Tartrate 25 mg 09/22/23 21:00 09/23/23 11:10 Metoprolol Tartrate 25 Mg Tablet PO Not Given BID@0900,2100 JAH Multivitamins Therapeutic 1 tab 09/20/23 12:45 09/23/23 11:10 Multivitamin Therapeutic Tablet PO Not Given DAILY JAH Pantoprazole Sodium 40 mg 09/20/23 09:00 09/23/23 11:[address] 40 Mg Tablet PO Not Given DAILY JAH Thiamine Mononitrate 100 mg 09/20/23 12:45 09/23/23 11:11 Thiamine 100 Mg Tablet PO Not Given DAILY JAH Trazodone HCl 100 mg 09/20/23 21:00 09/23/23 00:45 Trazodone 100 Mg Tablet PO Not Given BEDTIME JAH Ziprasidone 80 mg 09/21/23 21:00 09/23/23 00:45 Ziprasidone Hcl 40 Mg Capsule PO Not Given BEDTIME JAH PFSH Acute 2 PFSH: Family History (Updated 08/22/23 @ 08:37 by Lorenza Carreon LPN) Grandmother Cancer paternal Diabetes Grandfather Cancer paternal Mother Diabetes Denies family history of Heart disease Chronic kidney disease (CKD) Thyroid disease Stroke Vitals/I&O/Wt Last Vital Signs Temp 98.5 F 09/23/23 06:00 Pulse 109 H 09/23/23 14:00 Resp 14 09/23/23 14:00 BP 114/73 09/23/23 14:00 Pulse Ox 98 09/23/23 14:00 O2 Del Method Room Air 09/21/23 06:00 Weight last 48 hrs Weight 61.87 kg Weight 61.87 kg Physical Exam 2 Narrative: normal s1, s2 nad eomi laying in bed no resp compromise abd soft nontender lungs cta b/l neuro: unable to fully assess at this time due to pt not cooprating. he did look around and then looked away again no focal deficits no facial droop noted Data 09/24/23 05:00 09/24/23 05:00 A&P Assessment and plan (1) Noncompliance with medication regimen: (2) Acute psychosis: (3) Diabetes: Qualifiers: Diabetes mellitus complication status: without complication Diabetes mellitus fci insulin use: without fci use Diabetes mellitus type: t ype 2 Qualified Code(s): E11.9 - Type 2 diabetes mellitus without complications (4) Hypothyroid: Qualifiers: Hypothyroidism type: unspecified Qualified Code(s): E03.9 - Hypothyroidism, unspecified (5) GERD (gastroesophageal reflux disease): Qualifiers: Esophagitis presence: esophagitis presence not specified Qualified Code(s): K21.9 - Gastro-esophageal reflux disease without esophagitis (6) Unresponsive: Plan #Unresponsiveness #Possible seizure? #Possible stroke? #HTN controlled #Schizophrenia #Bipolar Disorder - Continue psych care as per psych - check neurochecks q2 hours - CT head pending. on my interpretation, there is no bleed - consult neurology. assesed at bedside. seems it may be functional/psychiatric cause - accucheck q6 hours - vitals [id number] - continue asa,atorvastatin, bupropion, cetirizine, duloxetine ? Hold gabapentin at this time ? Continue isosorbide dinitrate ? Hold lisinopril ? Continue metoprolol succinate 12.5 daily ? Continue trazodone Continue ziprasidone ? Check labs CBC, CMP, magnesium, lactic acid, prolactin, vitamin B12, ammonia ? Give normal saline bolus 1 L, placed on normal saline 100 cc/h thereafter. ? I believe his presentation may be secondary to psychiatric issues Full code DVT prophylaxis: SCDs Consult Attestations 2 Medical Necessity Statement: Defer to primary team Diagnoses Noncompliance with medication regimen Z91.148 Acute psychosis F23 Type 2 diabetes mellitus without complication, without long-term current use of insulin E11.9 Diabetes mellitus complication status: without complication Diabetes mellitus fci insulin use: without fci use Diabetes mellitus type: type 2 Hypothyroidism, unspecified type E03.9 Hypothyroidism type: unspecified Gastroesophageal reflux disease, unspecified whether esophagitis present K21.9 Esophagitis presence: esophagitis presence not specified Unresponsive R41.89
--- NOTE | 2023-09-23 15:01 | PC.NURSE ---
around 1345 went into pt room to give him an fresh drink, found pt non responsive, observed respiration, palpable radial pulse, left pt called for computer graphic designer immediately went back to pt room. Nuclear Pharmacist arrived, Sheriffs Officer arrived, SAW TAILER arrived at that time. , Rapid called, response team arrived to unit. Accu Check taken -85, pt taken to CT stroke alert activated.
[2023-09-23 15:14] LABS: Basophils % 0.7 %; Eosinophils % 0.5 %; Hematocrit 41.1 % (37-53); Lymphocytes # 1.4 10^3/uL (0.8-4.8); Lymphocytes % 23.9 %; Mean Corpuscular HGB Conc 35.3 g/dL (30-55); Mean Corpuscular Hemoglobin 29.9 pg (27-33); Mean Corpuscular Volume 84.7 fl (82-101); Mean Platelet Volume 8.8 fL (7.4-10.4); Monocytes # 0.5 10^3/uL (0.2-0.9); Monocytes % 9.2 %; Neutrophils # 3.87 10^3/uL (1.8-7.7); Neutrophils % 65.5 %; Nucleated Red Blood Cells % 0 %; Platelet Count 237 10^3/cmm (157-399); Red Blood Count 4.85 10^6/uL (3.85-5.65); Red Cell Distribution Width 11.8 % (12.1-15.1)
--- NOTE | 2023-09-23 15:14 | PM.SAN ---
Stroke Alert Activation ED Arrival Date: 09/23/23 ED Arrival Time: 14:05 ED Physican at Bedside: 14:05 Last Known Normal/at Baseline: < 1 hour ago Other Last Known Well Infomation: Stroke alert was called because the patient would not respond. He recently moved here from a senior living in [place] and moved in with his daughter. He has a history of diagnosis of schizophrenia as well as bipolar disorder, diabetes and heart disease. He moved here at the end of July. His daughter brought him in to the ER 09/20/2023 because he was not taking his medication and he was hiding in the sa[place]ni, paranoid and avoiding everyone. He was hearing voices. Since he has been here he has been somewhat disorganized and confused. He has only been eating less than 25% of his meals. His cognitive function has been impaired. This morning he was found unresponsive and would not speak to anyone. He was brought to CAT scan where a code stroke was called. On examination he would not follow commands. He would not regard the examiner but looked all around the room. He would not sit up to command and would not hold himself upright but eased himself back down to the stretcher. He had spontaneous but weak movements of all 4 extremities. He did not respond to pain. Stroke Alert Activation Time: 14:05 Stroke MD @ Bedside Time: 14:10 NIH Stroke Scale Time: 14:10 NIH stroke score NIHSS: Level Of Consciousness - 1a: 3 Level Of Consciousness Questions - 1b: Neither Correct Level Of Consciousness Commands - 1c: Neither Correct Best Gaze - 2: Normal Visual Neumann - 3: No Visual Loss (To threat) Facial Palsy - 4: Normal Motor Arm Right - 5: Drift Motor Arm Left - 5: Drift Motor Leg Right - 6: Drift Motor Leg Left - 6: Drift Limb Ataxia - 7: Absent Sensory - 8: Severe To Total Loss (No response to pain) Best Language - 9: Mute; Global Aphasia Dysarthia - 10: Normal Extinction And Inattention - 11: 0 Score: Total Score: 16 Stroke Alert Data/Treatment Time to CT of Head: 14:05 CT Results Time: 14:59 CT Impression: Diffuse white matter disease. Nothing acute. Stroke Risk Factors: coronary artery disease, diabetes mellitus, smoker (He quit after 25 years) and depression tPA Admin Prior to Arrival: No Other Patient & Family Education: I talked with Dr. Hanson and later with Dr. Au. This patient has no focal findings and is my impression that his behavior is psychogenic although we need to be alert for dehydration. Blood sugar was in the process during my stay. I have reviewed his CT of the head that shows no signs of a stroke and he has no focal findings to suggest cortical or brainstem stroke. Critical Care Time Critical Care Time: 30 - 74 mins A&P Assessment and plan (1) Unresponsive: Patient unresponsive state with features of catatonia. He needs to be worked up for medical causes of unresponsiveness but he has no signs of ischemic brain injury and his CAT scan is unremarkable with changes of aging. 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 Based on Dr. Figueroa description of the patient's mental status I wonder about a dementing process such as Lewy body disease. (2) Acute psychosis: (3) Diabetes: Qualifiers: Diabetes mellitus type: type 2 Diabetes mellitus intermission coordinator insulin use: without intermission coordinator use Diabetes mellitus complication status: without complication Qualified Code(s): E11.9 - Type 2 diabetes mellitus without complications Coding Level of Care Code Acute Code for g Fwd Diagnoses Unresponsive R41.89 Acute psychosis F23 Type 2 diabetes mellitus without complication, without long-term current use of insulin E11.9 Diabetes mellitus type: type 2 Diabetes mellitus halfway insulin use: without halfway use Diabetes mellitus complication status: without complication
--- NOTE | 2023-09-23 15:15 | PC.NURSE ---
I heard report from nursing that patient was repetitively hitting himself in the head. I presented to the room and patient was noted to be lying supine, resting, with his left hand covering his face. I introduced myself to patient and gently touched his arm to let him know I was near and he moved his arm and opened his eyes. Upon opening his eyes, he sighed several times, almost whimpering and stated my dog, my dog, my dog . Patient didn't look toward myself or the 1:1 sitter present in the room. I said his name a couple of times and he didn't make eye contact, only moved around in the bed slightly, then closed his eyes again and became still, resting quietly. I called and spoke with Dr. Au, she believes patient is medically stable with no seizure activity or stroke, and that if Dr. Figueroa agreed with patient's psych presentation today in comparison to yesterday, he could potentially transfer back to NPU this evening. Patient's daughter is present and waiting on Dr. Figueroa to speak with her. Patient lives with daughter and has for the last month after moving here from [place]. Spoke with Dr. Figueroa and he is on his way to the floor now to assess patient.
[2023-09-23 15:33] LABS: Alanine Aminotransferase 16 U/L (0-41); Albumin Level 4.4 g/dL (3.5-5.2); Alkaline Phosphatase 88 U/L (40-130); Aspartate Amino Transferase 15 U/L (0-40); Blood Urea Nitrogen 16 mg/dL (8-23); Calcium 9.4 mg/dL (8.5-10.5); Carbon Dioxide 17 mmol/L (22-29); Chloride 99 mmol/L (98-107); Globulin 2.7 g/dL (1.3-4.6); Glomerular Filtration Rate 136.5 mL/min (90-130); Glucose 82 mg/dL (65-115); Osmolality Calculated 280 mOsm/kg (285-295); Phosphorus 2.9 mg/dL (2.5-4.5); Sodium 135 mmol/L (136-145); Total Protein 7.1 g/dL (6.6-8.7)
[2023-09-23 15:49] LABS: Vitamin B12 371 pg/mL (232-1245)
[2023-09-23 16:17] VITALS: BP 117/77; PULSE 93; RESP 22; TEMP 36.6; O2SAT 94
[2023-09-23 16:31] LABS: Ammonia 42 umol/L (16-60)
[2023-09-23 16:44] LABS: Glucose Point of Care 94 mg/dL (70-110)
[2023-09-23] MEDS: hyDROXYzine 25 mg Capsule PO (17:25)
[2023-09-23] MEDS: duloxetine 60 mg Capsule PO (17:25)
[2023-09-23] MEDS: dicyclomine 10 mg Capsule PO ×2 (17:25→20:29)
[2023-09-23] MEDS: sodium chloride 0.9% 1,000 ML 75 ML IV (17:35)
[2023-09-23 17:45] LABS: Ketone (Acetest) Serum Negative (Negative)
[2023-09-23 17:49] LABS: Lactic Sepsis W/Reflex 1.3 mmol/L (0.5-2.2)
[2023-09-23 18:40] LABS: Prolactin 3.79 ng/mL (4.0-15.2)
[2023-09-23 18:44] LABS: Glucose Point of Care 140 mg/dL (70-110)
--- NOTE | 2023-09-23 19:35 | PC.NURSE ---
96 hr rights reviewed with patient @1500. No verbalized needs or questions at this time. Patient copy left @bedside with patient.
[2023-09-23] MEDS: ziprasidone hcl 40 mg Capsule 80 MG PO (20:25)
[2023-09-23] MEDS: trazodone 100 mg Tablet PO (20:25)
[2023-09-23] MEDS: CLONazepam 1 mg Tablet PO (20:25)
[2023-09-23 20:35] VITALS: BP 110/67; PULSE 128; RESP 16; TEMP 36.4; O2SAT 100
[2023-09-23 21:37] LABS: Glucose Point of Care 110 mg/dL (70-110)
[2023-09-23 21:48] LABS: Glucose Point of Care 81 mg/dL (70-110)
[2023-09-23 23:49] VITALS: BP 107/66; PULSE 77; RESP 16; TEMP 36.3; O2SAT 95
[2023-09-24] VITALS (8 sets, daily range): BP systolic 102–113; BP diastolic 65–72; PULSE 66–77; RESP 14–19; TEMP 36.3–36.7; O2SAT 97–100
[2023-09-24] MEDS: sodium chloride 0.9% 1,000 ML 75 ML IV (04:55)
[2023-09-24] MEDS: levothyroxine 88 mcg Tablet PO (04:59)
[2023-09-24] MEDS: buPROPion XL (24 HR) 150 mg Tablet PO (04:59)
[2023-09-24 05:42] LABS: Basophils % 0.7 %; Eosinophils # 0.1 10^3/uL (0.0-0.8); Hematocrit 39.3 % (37-53); Lymphocytes # 1.9 10^3/uL (0.8-4.8); Lymphocytes % 30.7 %; Mean Corpuscular HGB Conc 33.3 g/dL (30-55); Mean Corpuscular Hemoglobin 29.3 pg (27-33); Mean Corpuscular Volume 87.9 fl (82-101); Mean Platelet Volume 8.7 fL (7.4-10.4); Monocytes # 0.6 10^3/uL (0.2-0.9); Monocytes % 9.1 %; Neutrophils # 3.46 10^3/uL (1.8-7.7); Neutrophils % 57.2 %; Nucleated Red Blood Cells % 0 %; Platelet Count 205 10^3/cmm (157-399); Red Blood Count 4.47 10^6/uL (3.85-5.65); White Blood Count 6.05 10^3/uL (3.29-11.43)
[2023-09-24 06:04] LABS: Alanine Aminotransferase 12 U/L (0-41); Albumin Level 3.8 g/dL (3.5-5.2); Alkaline Phosphatase 82 U/L (40-130); Anion Gap 14.8 (5-19); Aspartate Amino Transferase 13 U/L (0-40); Blood Urea Nitrogen 21 mg/dL (8-23); Calcium 8.9 mg/dL (8.5-10.5); Carbon Dioxide 21 mmol/L (22-29); Chloride 107 mmol/L (98-107); Globulin 2.2 g/dL (1.3-4.6); Glomerular Filtration Rate 136.5 mL/min (90-130); Glucose 113 mg/dL (65-115); Osmolality Calculated 292 mOsm/kg (285-295); Potassium 3.8 mmol/L (3.5-5.1); Sodium 139 mmol/L (136-145); Total Bilirubin 0.6 mg/dL (0.15-1.2)
[2023-09-24 07:08] LABS: Glucose Point of Care 108 mg/dL (70-110)
[2023-09-24] MEDS: metformin 500 mg Tablet PO (08:05)
[2023-09-24] MEDS: atorvastatin 40 mg Tablet 80 MG PO (08:05)
[2023-09-24] MEDS: cetirizine 10 mg Tablet PO (08:05)
[2023-09-24] MEDS: metoprolol tartrate 25 mg Tablet 12.5 MG PO (08:05)
[2023-09-24] MEDS: thiamine 100 mg Tablet PO (08:05)
[2023-09-24] MEDS: folic acid 1 mg Tablet PO (08:05)
[2023-09-24] MEDS: pantoprazole DR 40 mg Tablet PO (08:06)
[2023-09-24] MEDS: multivitamin therapeutic Tablet 1 TAB PO (08:06)
[2023-09-24] MEDS: dicyclomine 10 mg Capsule PO ×2 (08:06→14:33)
[2023-09-24] MEDS: duloxetine 60 mg Capsule PO (08:06)
[2023-09-24] MEDS: aspirin 81 mg EC Tablet PO (08:06)
[2023-09-24] MEDS: hyDROXYzine 25 mg Capsule PO (08:06)
--- NOTE | 2023-09-24 08:30 | P.NPUPN_ITS ---
Subjective NPU 2 Subjective: Patient presented today continuing to have continued troubles with paranoia particularly with this technical proposal writer. We were able to have a brief conversation where he was essentially in the same state of mind that he was yesterday when he really revealed his clear psychotic symptoms. Today he essentially tried to run away from this technical proposal writer to avoid the conversation. We discussed a likely need to transition quickly to a 21-day hold given his level of resistance. Mental Status Exam 2 MSE Comments: This is a slender white male in hospital scrubs looking older than his stated age with limited grooming and eye contact. No abnormal movements except for mild psychomotor retardation. Cooperative with exam in mild distress. Speech was normal to increased rate and decreased volume. Mood not described, affect paranoid and angry. Thought process linear but occasionally disorganized. Thought content: Patient denied suicidal or homicidal ideation, there were no delusions reported but clear paranoia and persecutory delusions noted, he denied visual hallucinations but did endorse some auditory hallucinations. Attention and concentration were limited and memory was unreliable but none were formally tested. He is alert and oriented x 3 but not purpose. Insight, judgment and impulse control are impaired. Vitals/I&O/Wt Last Vital Signs Temp 97.7 F 09/24/23 07:49 Pulse 69 09/24/23 07:49 Resp 19 H 09/24/23 07:49 BP 105/68 09/24/23 07:49 Pulse Ox 97 09/24/23 07:49 O2 Del Method Room Air 09/24/23 07:49 09/23/23 09/24/23 09/24/23 22:59 06:59 14:59 Intake Total 1000 / 1000 Balance 1000 / 1000 Data NPU 09/24/23 05:00 09/24/23 05:00 A&P Assessment and plan (1) Unresponsive: (2) Acute psychosis: (3) Diabetes: Qualifiers: Diabetes mellitus type: type 2 Diabetes mellitus exterminator helper insulin use: without exterminator helper use Diabetes mellitus complication status: without complication Qualified Code(s): E11.9 - Type 2 diabetes mellitus without complications (4) Noncompliance with medication regimen: (5) Hypothyroid: Qualifiers: Hypothyroidism type: unspecified Qualified Code(s): E03.9 - Hypothyroidism, unspecified Plan This is a 63-year-old male who presented to the emergency department with police with reports of bizarre behavior, wandering around and endorsing auditory hallucinations and appearing confused on interview with some concerns for either overtaking medications or missing doses with benzodiazepines involved. 1. Continue current medications. 2. Return to neuropsychiatric unit once medically cleared. 3. continue one-to-one while on MedSurg. 4. Initiate 96-hour hold for psychosis and continued safety concerns. Will likely transition quickly to a 21-day hold given his resistance to any interventions including his basic medical needs with his diabetes. Likely will do Diana. 5. Would consider CIWA protocol. 6. Appreciate hospitalists consult and will follow recommendations as indicated. 7. Obtain collateral information from family illustrates he has history of paranoia which is clearly present today Involuntary Hold Information 2 96 Hour Hold: 96 Hour Involuntary Admission: No Attestations NPU 2 Medical Necessity Statement*: Inpatient hospitalization is medically necessary and the clinically appropriate intervention at this time. We will monitor medications and make changes as indicated. Likely length of stay 7-10 days. Coding Level of Care Code Acute Code for Chg Fwd Diagnoses Unresponsive R41.89 Acute psychosis F23 Type 2 diabetes mellitus without complication, without long-term current use of insulin E11.9 Diabetes mellitus type: type 2 Diabetes mellitus nursing home insulin use: without nursing home use Diabetes mellitus complication status: without complication Noncompliance with medication regimen Z91.148 Hypothyroidism, unspecified type E03.9 Hypothyroidism type: unspecified
[2023-09-24 11:16] LABS: Glucose Point of Care 119 mg/dL (70-110)
--- NOTE | 2023-09-24 11:21 | P.PN_ITS ---
Subjective 2 Subjective: Seen today. Patient sitting up in bed appearing well. No complaints offered. No acute events overnight. Back to baseline. Vitals/I&O/Wt Last Vital Signs Temp 97.7 F 09/24/23 07:49 Pulse 69 09/24/23 07:49 Resp 19 H 09/24/23 07:49 BP 105/68 09/24/23 07:49 Pulse Ox 97 09/24/23 07:49 O2 Del Method Room Air 09/24/23 07:49 09/23/23 09/24/23 09/24/23 22:59 06:59 14:59 Intake Total 1000 / 1000 360 / 360 Balance 1000 / 1000 360 / 360 Physical Exam 2 Narrative: normal s1, s2 nad eomi laying in bed no resp compromise abd soft nontender lungs cta b/l neuro: No focal deficits. Back to baseline. Data 09/24/23 05:00 09/24/23 05:00 A&P Assessment and plan (1) Noncompliance with medication regimen: (2) Acute psychosis: (3) Diabetes: Qualifiers: Diabetes mellitus type: type 2 Diabetes mellitus [facility] insulin use: without termite control service representative use Diabetes mellitus complication status: without complication Qualified Code(s): E11.9 - Type 2 diabetes mellitus without complications (4) Hypothyroid: Qualifiers: Hypothyroidism type: unspecified Qualified Code(s): E03.9 - Hypothyroidism, unspecified (5) GERD (gastroesophageal reflux disease): Qualifiers: Esophagitis presence: esophagitis presence not specified Qualified Code(s): K21.9 - Gastro-esophageal reflux disease without esophagitis (6) Unresponsive: Plan #Unresponsiveness?resolved #Possible seizure??Most likely psychogenic etiology #Possible stroke??Rule out #HTN controlled #Schizophrenia #Bipolar Disorder - Continue psych care as per psych - CT head negative ? Neurology assessed patient and we believe his presentation was secondary to psychiatric cause. ? Patient is status post normal saline bolus and IV fluids overnight. ? Continue existing medications and he may go back to psych floor today. Full code DVT prophylaxis: SCDs Attestations 2 Medical Necessity Statement*: Defer to primary team. Diagnoses Noncompliance with medication regimen Z91.148 Acute psychosis F23 Type 2 diabetes mellitus without complication, without long-term current use of insulin E11.9 Diabetes mellitus type: type 2 Diabetes mellitus termite control service representative insulin use: without termite control service representative use Diabetes mellitus complication status: without complication Hypothyroidism, unspecified type E03.9 Hypothyroidism type: unspecified Gastroesophageal reflux disease, unspecified whether esophagitis present K21.9 Esophagitis presence: esophagitis presence not specified Unresponsive R41.89
--- NOTE | 2023-09-24 13:13 | PC.NURSE ---
Report given to HILDA Sheth in NPU. IV removed. Tolerated well. Notified daughter of transfer back to NPU.
[2023-09-24 14:31] LABS: Glucose Point of Care 110 mg/dL (70-110)
[2023-09-24] MEDS: OLANZapine 5 mg ODT PO (14:33)
--- NOTE | 2023-09-24 14:54 | PC.NURSE ---
Patient was in room, crying. This nurse went to check on patient. Patient stated that he wanted out of here and that he needed to talk with his daughter. Patient stated that he is having SOB. Patient's VS taken. VS are WNLs. Patient refusing medication for anxiety/agitation, stating that he wants to talk to his daughter prior to taking any meds. This nurse called daughter Claire who said she was fine with giving patient something for anxiety and for dizziness. Patient notified of this; patient refused, stating that he knows his rights. Patient upset that his room is hot.
--- NOTE | 2023-09-24 18:04 | PC.NURSE ---
Patient states that he doesn't need to self-cath at this time. Patient denies abdominal discomfort.
--- NOTE | 2023-09-24 18:04 | PC.NURSE ---
Patient refusing to have his BG checked by multiple staff, stating you know what is going up . Contacted Dr. Figueroa about situation. Dr. Figueroa advised that he will file a 21 day tomorrow. Until then, we cannot force him. Encourage drinks and food.
--- NOTE | 2023-09-24 20:21 | PC.NURSE ---
Attempted to Obtain vitals and accucheck from patient. Patient stated that it was already done. Let patient know that we still needed them tonight and patient stated no I dont trust anyone here.
[2023-09-25 06:00] VITALS: RESP 16
--- NOTE | 2023-09-25 06:53 | PC.NURSE ---
Attempted to obtain patients vitals. Patient Refused. RR documented.
--- NOTE | 2023-09-25 08:26 | PC.NURSE ---
During morning assessment, patient refused to answer any questions. Patient laying in bed, supine position with eyes open. When this nurse went to talk with patient, he shut his eyes and squeezed them shut. This nurse asked him how he was feeling, asked him about SI, HI, AVH, depression and anxiety. Patient did not respond to any questions. This nurse told patient the importance of compliance for being discharged. Patient didn't respond. Patient refused to have his BG checked by MANAGER MEDICA[employer]. Asked to assess his stomach for distention; patient refused. Patient wouldn't answer when questioned about needing to self-cath
--- NOTE | 2023-09-25 10:14 | PC.NURSE ---
Patient refused morning medications. This nurse told patient the importance of medication compliance for optimal health. Patient shut eyes closed, tightly and refused to acknowledge me. This nurse also asked patient if he needed supplies for self-catheterization. Patient did not respond. This nurse asked patient if there was anything that we could do to help him. Patient did not respond. Will continue to check on patient, regularly.
[2023-09-25 14:00] VITALS: BP 165/97; PULSE 105; RESP 17; O2SAT 98
[2023-09-25 15:24] LABS: Glucose Point of Care 112 mg/dL (70-110)
--- NOTE | 2023-09-25 16:22 | PC.NURSE ---
When patient's daughter arrived for visiting hour, patient jumped from bed after being immobile all day. Patient's speech was fast and animated. Patient pointed at this nurse saying that I couldn't be trusted. Patient's pants were wet from urine. This nurse got patient a fresh pair of scrubs. Patient refused to change into the scrubs unless his daughter was near him. This nurse and daughter went into the room and stood outside his room while he changed. Patient was accusatory during this, stating that this nurse was out to get him. Patient was then taken to dayroom with daughter. The patient allowed staff to take his VS and blood glucose with the help of his daughter who said that she wanted to know what the results were. Patient was presented with a sandwhich and drink. Patient ate the meat off of the sandwich and drank fruit punch after his daughter took a bite to ensure that it was safe to consume.
--- NOTE | 2023-09-25 17:14 | W.PM.NPUPNS ---
Subjective NPU Subjective: Patient presented today once again being mostly mute and interactions with this short story writer. He will make comments to other people about this short story writer but no significant spontaneous conversations happening. We continued to discuss the fact that we need for him to take his medication, eat and show some level of independence in order to be able to discharge him. He continues to spew delusional assessments of our interactions. We discussed this moving towards a 21-day hold. Mental Status Exam MSE Comments: This is a slender white male in hospital scrubs looking older than his stated age with limited grooming and eye contact. No abnormal movements except for mild psychomotor retardation. Cooperative with exam in mild distress. Speech was normal to increased rate and decreased volume. Mood not described, affect paranoid and angry. Thought process linear but occasionally disorganized. Thought content: Patient denied suicidal or homicidal ideation, there were no delusions reported but clear paranoia and persecutory delusions noted, he denied visual hallucinations but did endorse some auditory hallucinations. Attention and concentration were limited and memory was unreliable but none were formally tested. He is alert and oriented x 3 but not purpose. Insight, judgment and impulse control are impaired. Vitals/I&O/Wt Last Vital Signs Temp 97.4 F L 09/24/23 18:00 Pulse 105 H 09/25/23 14:00 Resp 17 09/25/23 14:00 BP 165/97 09/25/23 14:00 Pulse Ox 98 09/25/23 14:00 O2 Del Method Room Air 09/24/23 12:59 09/25/23 09/25/23 09/25/23 06:59 14:59 22:59 Intake Total 0 / 0 Balance 0 / 0 Data NPU 09/24/23 05:00 09/24/23 05:00 A&P Assessment and plan (1) Unresponsive: (2) Acute psychosis: (3) Diabetes: Qualifiers: Diabetes mellitus type: type 2 Diabetes mellitus intermodal customer service insulin use: without intermodal customer service use Diabetes mellitus complication status: without complication Qualified Code(s): E11.9 - Type 2 diabetes mellitus without complications (4) Noncompliance with medication regimen: (5) Hypothyroid: Qualifiers: Hypothyroidism type: unspecified Qualified Code(s): E03.9 - Hypothyroidism, unspecified Plan This is a 63-year-old male who presented to the emergency department with police with reports of bizarre behavior, wandering around and endorsing auditory hallucinations and appearing confused on interview with some concerns for either overtaking medications or missing doses with benzodiazepines involved. 1. Continue current medications. 2. Returned to neuropsychiatric unit 3. Continue every 15 minute checks for safety 4. Initiated 96-hour hold for psychosis and continued safety concerns. We will file 21-day hold paperwork tomorrow. Likely will do Diana. 5. Would consider CIWA protocol. 6. Appreciate hospitalists consult and will follow recommendations as indicated. 7. Obtained collateral information from family illustrates he has history of paranoia which is clearly present today Involuntary Hold Information 96 Hour Hold: 96 Hour Involuntary Admission: No Attestations NPU Medical Necessity Statement*: Inpatient hospitalization is medically necessary and the clinically appropriate intervention at this time. We will monitor medications and make changes as indicated. Likely length of stay 7-10 days. Coding Level of Care Code Acute Code for Chg Fwd Diagnoses Unresponsive R41.89 Acute psychosis F23 Type 2 diabetes mellitus without complication, without long-term current use of insulin E11.9 Diabetes mellitus type: type 2 Diabetes mellitus senior living insulin use: without intermodal customer service use Diabetes mellitus complication status: without complication Noncompliance with medication regimen Z91.148 Hypothyroidism, unspecified type E03.9 Hypothyroidism type: unspecified
[2023-09-25 17:36] LABS: Glucose Point of Care 108 mg/dL (70-110)
--- NOTE | 2023-09-25 18:41 | PC.NURSE ---
PATIENT REFUSED 1800 MEDS DESPITE NUMEROUS ATTEMPTS. WILL NOTIFY DOCTOR.
[2023-09-25] MEDS: haloperidol inj 5 mg/mL INJ 1 mL IM (20:46)
[2023-09-25] MEDS: diphenhydrAMINE 50 mg/mL SDV 1mL IM (20:46)
[2023-09-25] MEDS: LORazepam 2 mg/mL INJ 1 mL IM (20:46)
--- NOTE | 2023-09-25 22:02 | PC.NURSE ---
ASSESSMENT ATTEMPTED, PT REFUSES TO COMPLETE, PT JUST CONTINUES TO REPEAT YOU DID THIS TO ME. PT WAS OBSERVED STANDING IN THE HALLWAY WITH WALKER, THIS RN OFFERED PT SNACK AND DRINK, PT REFUSED AND MUTTERD SOMETHING UNDER BREATH. PT CONTINUED TO SUPERVISOR SHIPPING ROOM BARRIOS WAY. WHEN RN WENT INTO NURSES STATION PT FOLLOWED AND TRIED TO BARREL THROUGH WITH HIS WALKER. PT WAS REDIRECTED BACK OUT OF THE DOOR TO THE NURSES STATION AND INTO THE HALLWAY. PT THEN WAS OBSERVED STANDING IN HALLWAY AND URINATED DOWN HIS PANTS. CATALYST OPERATOR'S ATTEMPTED TO HELP PT GET CLEANED UP BUT PT REFUSED STATING JUST LEAVE ME BE. PT THEN TOOK WALKER AND ATTEMPTED TO HIT CATALYST OPERATOR WITH IT. DR. OLIVERA WAS ON UNIT AND WAS ASKED WHAT HE WANTED THIS RN TO GIVE PT FOR ESCALATED BEHAVIORS, DR. OLIVERA AGREED TO 2 MG OF ATIVAN, 5MG OF HALDOL AND 50 MG OF BENADRYL. RN AND ASSISTANT PROFESSOR OF EDUCATION WENT TO DRAW UP MEDS AND CATALYST OPERATOR CALLED SECURITY FOR STANDBY. WHILE WAITING FOR SECURITY AND HOUSE SUP PT WENT TO DOOR AND WAS ATTEMPTED TO PUSH IT OPEN WANTING TO LEAVE. PT WAS VERBALLY REDIRECTED WITHOUT ANY RESOLVE. SECURITY HERE TO UNIT AT 2030. RN WENT INTO PT ROOM WITH SECURITY AND ATTEMPTED TO GET PTS WALKER DUE TO PT USING IT A WEAPON. PT REFUSED TO LET RN HAVE IT. SECURITY ATTEMPTED TALK TO PT AND GET WALKER WITH OUT ANY EFFECT. SECURITY INSTRUCTED STAFF TO CALL A CODE 10. STAFF DID RESPOND AND ATTEMPT TO DE-ESCALATE AND OBTAIN WALKER FROM PT. SEVERAL MINUTES WENT BY WHEN DR. OLIVERA CAME INTO ROOM AND GAVE PT A CHOICE TO TAKE THE SHOT AND THEN HE COULD REST. AFTER COMPLYING WITH PTS REQUESTS FOR WATER PT DID SIT DOWN ON BED AND ALLOW NURSES TO GIVE INJECTIONS. RN ADMINISTERED 50 MG OF BENADRYL TO LEFT DELTOID AND ASSISTANT PROFESSOR OF EDUCATION ADMINISTERED 2 MG ATIVAN WITH 5 MG OF HALDOL INTO RIGHT DELTOID. PT TOLERATED WELL. PT CONTINUES TO YELL WHILE IN HIS ROOM MAKING STATEMENTS I'M GOING TO TAKE THAT DOCTORS LICENSE AND ALL YOUR LICENSES TOO SO BE READY. AT APPROXIMATELY 2155 PT DID LAY DOWN AND BEGIN TO REST. PT STILL REFUSES TO CHANGE HIS SCRUBS. CATALYST OPERATOR AND RN WENT INTO ROOM TO HELP PT CHANGE, PT TOLD STAFF TO LEAVE. ALL QUESTIONS ANSWERED AND SUPPORT WAS VOICED.
--- NOTE | 2023-09-25 22:08 | PC.NURSE ---
Attempted to obtain vitals from patient. Patient was agitated and said no.
--- NOTE | 2023-09-26 01:43 | PC.NURSE ---
PT REFUSES ALL 2100 MEDICATIONS, THEY ARE THE FOLLOWING: METOPROLOL,DICYLCOMINE, TRAZODONE,CLONAZEPAM AND GEODON. DR. OLIVERA NOTIFIED OF REFUSAL. NO NEW ORDERS WERE RECEIVED.
--- NOTE | 2023-09-26 01:47 | PC.NURSE ---
SYSTEMS OPERATOR AND RN ATTEMPTED TO OBTAIN VITAL SIGNS ONE HOUR AFTER MEDICATION ADMINISTRATION DUE TO VIOLENT BEHAVIORS AND EXIT SEEKING EARLIER THIS SHIFT. PT WAS GIVEN BENADRYL 50MG, ATIVAN 2 MG AND HALDOL 5 MG IM. STAFF HAVE ATTEMPTED SEVERAL TIMES TO OBTAIN VITAL SIGNS BUT PT CONTINUES TO DECLINE. PT DID FALL ASLEEP AT APPROXIMATELY 2300. MEDICATIONS LISTED ARE DEEMED EFFECTIVE AND HAVE CALMED PT FROM HIS AGITATION AND AGGRESSION. AT 0149 AM PT CONTINUES TO REST WITH EYES CLOSED WITH NO DISTRESS NOTED. WILL ATTEMPT TO OBTAIN A FULL SET OF VITALS IN THE AM. PT ALSO DECLINED HIS BLOOD GLUCOSE TESTING AT 2100 DESPITE MULTIPLE ATTEMPTS OF ENCOURAGEMENT. LAST BLOOD GLUCOSE WAS OBTAINED ON DAY SHIFT BEFORE DINNER AND IT WAS 108 AT 1739. NO S/S OF HYPOGLYCEMIA HAS BEEN OBSERVED AT THIS TIME.
--- NOTE | 2023-09-26 01:50 | PC.NURSE ---
Attempted to obtain patients blood glucose, after multiple attempts patient still declined. This tech also attempted to obtain patients vitals 1 hour after a code 10 was called on the patient and a B52 was given. Patient was still very agitated and yelling at this time and refused.
[2023-09-26 06:00] VITALS: BP 110/71; PULSE 98; RESP 16; TEMP 36.9; O2SAT 98
[2023-09-26 07:16] LABS: Glucose Point of Care 96 mg/dL (70-110)
[2023-09-26] MEDS: cetirizine 10 mg Tablet PO (08:39)
[2023-09-26] MEDS: folic acid 1 mg Tablet PO (08:39)
[2023-09-26] MEDS: pantoprazole DR 40 mg Tablet PO (08:39)
[2023-09-26] MEDS: aspirin 81 mg EC Tablet PO (08:39)
[2023-09-26] MEDS: dicyclomine 10 mg Capsule PO ×2 (08:39→15:02)
[2023-09-26] MEDS: levothyroxine 88 mcg Tablet PO (08:39)
[2023-09-26] MEDS: thiamine 100 mg Tablet PO (08:39)
[2023-09-26] MEDS: hyDROXYzine 25 mg Capsule PO (08:39)
[2023-09-26] MEDS: atorvastatin 40 mg Tablet 80 MG PO (08:39)
[2023-09-26] MEDS: duloxetine 60 mg Capsule PO (08:39)
[2023-09-26] MEDS: multivitamin therapeutic Tablet 1 TAB PO (08:40)
[2023-09-26] MEDS: buPROPion XL (24 HR) 150 mg Tablet PO (08:40)
[2023-09-26] MEDS: OLANZapine 5 mg ODT PO (09:14)
[2023-09-26] MEDS: paliperidone ER 6 mg Tablet PO (13:17)
[2023-09-26 14:00] VITALS: BP 134/89; PULSE 71; RESP 16; TEMP 36.3; O2SAT 91
[2023-09-26 15:10] LABS: Glucose Point of Care 96 mg/dL (70-110)
--- NOTE | 2023-09-26 17:25 | PC.NURSE ---
PATIENT'S DAUGHTER URIEL VISITED PATIENT TODAY. DURING VISIT, PATIENT TOOK INVEGA AND BENTYL. PATIENT ALSO ALLOWED STAFF TO CHECK HIS VS AND BLOOD GLUCOSE. PATIENT TOOK A SHOWER WITH DAUGHTER NEARBY, IN ROOM, WITH PERMISSION FROM DR. OLIVERA.
[2023-09-26 17:59] LABS: Glucose Point of Care 98 mg/dL (70-110)
--- NOTE | 2023-09-26 18:25 | W.PM.NPUPNS ---
Subjective NPU Subjective: Patient presented today and essentially would not speak to this automobile and property underwriter. He essentially closed his eyes and looked the other way and at times seem to be almost tearful. This automobile and property underwriter explained that we did in fact file for the 21-day hold and that we would really need to collaborate so that he could be discharged. Staff reports however that he is being a little bit more compliant/adherent agreeing to take medication more readily but then at times going the opposite direction and not even letting vitals be taken. Mental Status Exam MSE Comments: This is a slender white male in hospital scrubs looking older than his stated age with limited grooming and eye contact. No abnormal movements except for mild psychomotor retardation. Uncooperative with exam in mild to moderate distress. Patient was mute during interview. Mood not described, affect paranoid and angry and possibly tearful. Thought process linear . Thought content: Patient did not respond to questions about lethality but did not have outward or inwardly directed aggression, there were no delusions noted none reported, he did not appear to be attending to internal stimuli. Attention and concentration were impaired and memory was not evaluated but none were formally tested. He is alert and appears oriented to self. Insight, judgment and impulse control are impaired. Vitals/I&O/Wt Last Vital Signs Temp 97.3 F L 09/26/23 14:00 Pulse 71 09/26/23 14:00 Resp 16 09/26/23 14:00 BP 134/89 09/26/23 14:00 Pulse Ox 91 09/26/23 14:00 O2 Del Method Room Air 09/26/23 14:00 Data NPU 09/24/23 05:00 09/24/23 05:00 A&P Assessment and plan (1) Unresponsive: (2) Acute psychosis: (3) Diabetes: Qualifiers: Diabetes mellitus type: type 2 Diabetes mellitus [facility] insulin use: without [facility] use Diabetes mellitus complication status: without complication Qualified Code(s): E11.9 - Type 2 diabetes mellitus without complications (4) Noncompliance with medication regimen: (5) Hypothyroid: Qualifiers: Hypothyroidism type: unspecified Qualified Code(s): E03.9 - Hypothyroidism, unspecified Plan This is a 63-year-old male who presented to the emergency department with police with reports of bizarre behavior, wandering around and endorsing auditory hallucinations and appearing confused on interview with some concerns for either overtaking medications or missing doses with benzodiazepines involved. 1. Continue current medications. 2. Returned to neuropsychiatric unit 3. Continue every 15 minute checks for safety 4. Initiated 96-hour hold for psychosis and continued safety concerns. Filed for 21-day hold. Likely will do Diana. 5. Would consider [facility] protocol. 6. Appreciate hospitalists consult and will follow recommendations as indicated. 7. Obtained collateral information from family illustrates he has history of paranoia which is clearly present today Involuntary Hold Information 96 Hour Hold: 96 Hour Involuntary Admission: No Attestations NPU Medical Necessity Statement*: Inpatient hospitalization is medically necessary and the clinically appropriate intervention at this time. We will monitor medications and make changes as indicated. Likely length of stay 7-10 days. Coding Level of Care Code Acute Code for Chg Fwd Diagnoses Unresponsive R41.89 Acute psychosis F23 Type 2 diabetes mellitus without complication, without long-term current use of insulin E11.9 Diabetes mellitus type: type 2 Diabetes mellitus press tender long goods insulin use: without press tender long goods use Diabetes mellitus complication status: without complication Noncompliance with medication regimen Z91.148 Hypothyroidism, unspecified type E03.9 Hypothyroidism type: unspecified
[2023-09-26 20:01] LABS: Glucose Point of Care 98 mg/dL (70-110)
[2023-09-26 20:47] VITALS: BP 119/77; PULSE 80; RESP 15; O2SAT 98
[2023-09-27 06:00] VITALS: BP 130/77; PULSE 83; RESP 16; O2SAT 96
--- NOTE | 2023-09-27 06:01 | PC.NURSE ---
Patient behavior Patient refused all of his medications this shift.
[2023-09-27 08:00] LABS: Glucose Point of Care 93 mg/dL (70-110)
[2023-09-27] MEDS: aspirin 81 mg EC Tablet PO (08:49)
[2023-09-27] MEDS: paliperidone ER 6 mg Tablet PO (08:49)
[2023-09-27] MEDS: dicyclomine 10 mg Capsule PO ×2 (08:49→20:18)
[2023-09-27] MEDS: thiamine 100 mg Tablet PO (08:49)
[2023-09-27] MEDS: hyDROXYzine 25 mg Capsule PO ×2 (08:50→17:29)
[2023-09-27] MEDS: atorvastatin 40 mg Tablet 80 MG PO (08:50)
[2023-09-27] MEDS: metoprolol tartrate 25 mg Tablet 12.5 MG PO ×2 (08:50→20:20)
[2023-09-27] MEDS: multivitamin therapeutic Tablet 1 TAB PO (08:50)
[2023-09-27] MEDS: folic acid 1 mg Tablet PO (08:50)
[2023-09-27] MEDS: pantoprazole DR 40 mg Tablet PO (08:50)
[2023-09-27] MEDS: cetirizine 10 mg Tablet PO (08:51)
[2023-09-27] MEDS: duloxetine 60 mg Capsule PO ×2 (08:51→17:29)
[2023-09-27] MEDS: levothyroxine 88 mcg Tablet PO (08:59)
[2023-09-27] MEDS: buPROPion XL (24 HR) 150 mg Tablet PO (08:59)
[2023-09-27 12:12] LABS: Glucose Point of Care 104 mg/dL (70-110)
--- NOTE | 2023-09-27 14:59 | W.PM.NPUPNS ---
Subjective NPU Subjective: Patient presented today and essentially would not speak to this communications writer for second straight day. He essentially closed his eyes and looked the other way and at times seem to be almost tearful. This communications writer explained that we discussed the 21-day hold hearing today. Staff reports however that he is being more disagreeable today. Mental Status Exam MSE Comments: This is a slender white male in hospital scrubs looking older than his stated age with limited grooming and eye contact. No abnormal movements except for mild psychomotor retardation. Uncooperative with exam in mild to moderate distress. Patient was mute during interview. Mood not described, affect paranoid and angry and possibly tearful. Thought process linear . Thought content: Patient did not respond to questions about lethality but did not have outward or inwardly directed aggression, there were no delusions noted none reported, he did not appear to be attending to internal stimuli. Attention and concentration were impaired and memory was not evaluated but none were formally tested. He is alert and appears oriented to self. Insight, judgment and impulse control are impaired. Vitals/I&O/Wt Last Vital Signs Temp 97.3 F L 09/26/23 14:00 Pulse 83 09/27/23 06:00 Resp 16 09/27/23 06:00 BP 130/77 09/27/23 06:00 Pulse Ox 96 09/27/23 06:00 O2 Del Method Room Air 09/26/23 14:00 Data NPU 09/24/23 05:00 09/24/23 05:00 A&P Assessment and plan (1) Unresponsive: (2) Acute psychosis: (3) Diabetes: Qualifiers: Diabetes mellitus type: type 2 Diabetes mellitus snf insulin use: without snf use Diabetes mellitus complication status: without complication Qualified Code(s): E11.9 - Type 2 diabetes mellitus without complications (4) Noncompliance with medication regimen: (5) Hypothyroid: Qualifiers: Hypothyroidism type: unspecified Qualified Code(s): E03.9 - Hypothyroidism, unspecified Plan This is a 63-year-old male who presented to the emergency department with police with reports of bizarre behavior, wandering around and endorsing auditory hallucinations and appearing confused on interview with some concerns for either overtaking medications or missing doses with benzodiazepines involved. 1. Continue current medications. Continue Invega and increase from 6 to 9 mg p.o. daily. 2. Returned to neuropsychiatric unit 3. Continue every 15 minute checks for safety 4. Initiated 96-hour hold for psychosis and continued safety concerns. 21-day hold hearing today. Likely will do Diana. 5. Would consider [facility] protocol. 6. Appreciate hospitalists consult and will follow recommendations as indicated. 7. Obtained collateral information from family illustrates he has history of paranoia which is clearly present today Involuntary Hold Information 96 Hour Hold: 96 Hour Involuntary Admission: No Attestations NPU Medical Necessity Statement*: Inpatient hospitalization is medically necessary and the clinically appropriate intervention at this time. We will monitor medications and make changes as indicated. Likely length of stay 7-10 days. Coding Level of Care Code Acute Code for Chg Fwd Diagnoses Unresponsive R41.89 Acute psychosis F23 Type 2 diabetes mellitus without complication, without long-term current use of insulin E11.9 Diabetes mellitus type: type 2 Diabetes mellitus extermination supervisor insulin use: without extermination supervisor use Diabetes mellitus complication status: without complication Noncompliance with medication regimen Z91.148 Hypothyroidism, unspecified type E03.9 Hypothyroidism type: unspecified
[2023-09-27] MEDS: diphenhydrAMINE 50 mg/mL SDV 1mL IM (15:39)
[2023-09-27] MEDS: haloperidol inj 5 mg/mL INJ 1 mL IM (15:40)
[2023-09-27] MEDS: LORazepam 2 mg/mL INJ 1 mL IM (15:40)
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
[2023-09-27 16:41] VITALS: BP 110/75; PULSE 104; RESP 16; TEMP 36.5; O2SAT 97
--- NOTE | 2023-09-27 16:42 | PC.NURSE ---
pt out of restraints escorted back in to his room by staff, pt appears to be calm, denies agitation, pt resting in bed.
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
[2023-09-27] MEDS: paliperidone palmitate 234 mg Syringe IM (17:04)
[2023-09-27 17:25] LABS: Glucose Point of Care 140 mg/dL (70-110)
[2023-09-27 19:36] LABS: Glucose Point of Care 156 mg/dL (70-110)
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
[2023-09-27] MEDS: ziprasidone hcl 40 mg Capsule 80 MG PO (20:19)
[2023-09-27] MEDS: trazodone 100 mg Tablet PO (20:19)
[2023-09-27] MEDS: CLONazepam 1 mg Tablet PO (20:19)
[2023-09-27 20:46] VITALS: BP 108/70; PULSE 92; RESP 18; TEMP 36.9; O2SAT 98
[2023-09-28 06:00] VITALS: BP 114/78; PULSE 99; RESP 16; TEMP 36.6; O2SAT 96
[2023-09-28] MEDS: levothyroxine 88 mcg Tablet PO (06:25)
[2023-09-28] MEDS: buPROPion XL (24 HR) 150 mg Tablet PO (06:25)
[2023-09-28 08:07] LABS: Glucose Point of Care 130 mg/dL (70-110)
[2023-09-28] MEDS: atorvastatin 40 mg Tablet 80 MG PO (09:07)
[2023-09-28] MEDS: dicyclomine 10 mg Capsule PO ×3 (09:08→20:39)
[2023-09-28] MEDS: thiamine 100 mg Tablet PO (09:08)
[2023-09-28] MEDS: folic acid 1 mg Tablet PO (09:08)
[2023-09-28] MEDS: cetirizine 10 mg Tablet PO (09:08)
[2023-09-28] MEDS: duloxetine 60 mg Capsule PO ×2 (09:08→17:01)
[2023-09-28] MEDS: paliperidone ER 6 mg Tablet PO (09:08)
[2023-09-28] MEDS: aspirin 81 mg EC Tablet PO (09:08)
[2023-09-28] MEDS: pantoprazole DR 40 mg Tablet PO (09:08)
[2023-09-28] MEDS: multivitamin therapeutic Tablet 1 TAB PO (09:09)
[2023-09-28] MEDS: hyDROXYzine 25 mg Capsule PO ×2 (09:09→17:01)
[2023-09-28] MEDS: metoprolol tartrate 25 mg Tablet 12.5 MG PO (09:10)
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
[2023-09-28 14:00] VITALS: BP 108/72; PULSE 87; RESP 18; TEMP 36.7; O2SAT 96
[2023-09-28 17:05] LABS: Glucose Point of Care 119 mg/dL (70-110)
[2023-09-28 20:20] LABS: Glucose Point of Care 129 mg/dL (70-110)
[2023-09-28 20:23] VITALS: BP 99/66; PULSE 99; RESP 18; TEMP 36.6; O2SAT 98
[2023-09-28] MEDS: trazodone 100 mg Tablet PO (20:39)
[2023-09-28] MEDS: CLONazepam 1 mg Tablet PO (20:39)
[2023-09-28] MEDS: ziprasidone hcl 40 mg Capsule 80 MG PO (20:39)
--- NOTE | 2023-09-28 21:15 | PC.NURSE ---
IN ROOM, MILD ANXIETY NOTED. PT REPORTS HE NEEDS TO SELF CATH DUE TO ONLY VOIDING ONCE THIS AM. PT WAS GIVEN SUPPLIES TO SELF CATH WITH STAFF AT SIDE, 500 MLS APPROXIMATELY OF CLEAR YELLOW URINE WAS OBSERVED AND DOCUMENTED. PT REPORTS HE IS FEELING MUCH BETTER. DENIES SI/HI AND AVH AT THIS TIME. RATES ANXIETY 2/10 AND DEPRESSION 0/10. DENIES PAIN NOW THAT HE HAS VOIDED. AFFECT IS NOTED TO BE FLAT AND GUARDED SOME PARANOIA IS OBSERVED AT TIMES. PT IS COMPLIANT WITH MEDICATIONS. METOPOROL WAS HELD DUE TO BP 96/66. ALL QUESTIONS ANSWERED AND SUPPORT WAS VOICED.
[2023-09-29] MEDS: buPROPion XL (24 HR) 150 mg Tablet PO (05:44)
[2023-09-29] MEDS: levothyroxine 88 mcg Tablet PO (05:44)
[2023-09-29 06:00] VITALS: BP 121/74; PULSE 78; RESP 16; TEMP 36.8; O2SAT 99
[2023-09-29 07:49] LABS: Glucose Point of Care 124 mg/dL (70-110)
[2023-09-29] MEDS: pantoprazole DR 40 mg Tablet PO (08:02)
[2023-09-29] MEDS: paliperidone ER 6 mg Tablet PO (08:02)
[2023-09-29] MEDS: duloxetine 60 mg Capsule PO ×2 (08:02→18:10)
[2023-09-29] MEDS: folic acid 1 mg Tablet PO (08:02)
[2023-09-29] MEDS: multivitamin therapeutic Tablet 1 TAB PO (08:02)
[2023-09-29] MEDS: cetirizine 10 mg Tablet PO (08:03)
[2023-09-29] MEDS: metoprolol tartrate 25 mg Tablet 12.5 MG PO ×2 (08:03→20:27)
[2023-09-29] MEDS: aspirin 81 mg EC Tablet PO (08:03)
[2023-09-29] MEDS: atorvastatin 40 mg Tablet 80 MG PO (08:03)
[2023-09-29] MEDS: thiamine 100 mg Tablet PO (08:03)
[2023-09-29] MEDS: dicyclomine 10 mg Capsule PO ×3 (08:03→20:28)
[2023-09-29] MEDS: hyDROXYzine 25 mg Capsule PO ×2 (08:03→18:10)
[2023-09-29] MEDS: docusate sodium 100 mg Capsule PO (08:09)
[2023-09-29] MEDS: polyethylene glycol 3350 Pkt 17 gm PO (08:09)
--- NOTE | 2023-09-29 09:46 | W.PM.NPUPNS ---
Subjective NPU Subjective: Patient presented today reporting that he was doing fine. For the first time in several days he was responsive to questions that I asked and a way suggestive that he was not still thinking of this race and sports book writer as a significant threat. He answered the questions without any specific fiber to his responses He was very cordial and respectful and reported he hopes to get out soon. He denied any side effects to the medication. Mental Status Exam MSE Comments: This is a slender white male in hospital scrubs looking older than his stated age with limited grooming and eye contact. No abnormal movements except for mild psychomotor retardation. More cooperative with exam in mild distress. Speech was more normal rate and volume. Mood described as pretty good, affect appeared mostly euthymic. Thought process linear . Thought content: Patient denied suicidal or homicidal ideation, there were no delusions noted and none reported, he did not appear to be attending to internal stimuli. Attention and concentration were more intact and memory appeared reliable but none were formally tested. He is alert and oriented to person and place. Insight and judgment are improving and impulse control are limited but improving. 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 insulin use: without long-term use Diabetes mellitus complication status: without complication Qualified Code(s): E11.9 - Type 2 diabetes mellitus without complications (4) Noncompliance with medication regimen: (5) Hypothyroid: Qualifiers: Hypothyroidism type: unspecified Qualified Code(s): E03.9 - Hypothyroidism, unspecified Plan This is a 63-year-old male who presented to the emergency department with police with reports of bizarre behavior, wandering around and endorsing auditory hallucinations and appearing confused on interview with some concerns for either overtaking medications or missing doses with benzodiazepines involved. 1. Continue current medications. Continue Invega and increased from 6 to 9 mg p.o. daily. Invega Sustenna 234 mg IM loading dose to the deltoid administered yesterday 09/27/2023. 2. Returned to neuropsychiatric unit 3. Continue every 15 minute checks for safety 4. Initiated 96-hour hold for psychosis and continued safety concerns. 21-day hold granted 09/27/2023. Likely will do Diana. 5. Would consider [facility] protocol. 6. Appreciate hospitalists consult and will follow recommendations as indicated. 7. Obtained collateral information from family illustrates he has history of paranoia which is clearly present today Involuntary Hold Information 96 Hour Hold: 96 Hour Involuntary Admission: No Attestations NPU Medical Necessity Statement*: Inpatient hospitalization is medically necessary and the clinically appropriate intervention at this time. We will monitor medications and make changes as indicated. Likely length of stay 7-10 days. Coding Level of Care Code Acute Code for Chg Fwd Diagnoses Unresponsive R41.89 Acute psychosis F23 Type 2 diabetes mellitus without complication, without long-term current use of insulin E11.9 Diabetes mellitus type: type 2 Diabetes mellitus long-term insulin use: without long-term use Diabetes mellitus complication status: without complication Noncompliance with medication regimen Z91.148 Hypothyroidism, unspecified type E03.9 Hypothyroidism type: unspecified
[2023-09-29] MEDS: magnesium hydroxide 30 mL UDC PO ×2 (09:51→20:48)
[2023-09-29 11:36] LABS: Glucose Point of Care 80 mg/dL (70-110)
[2023-09-29 14:00] VITALS: BP 106/75; PULSE 94; RESP 18; TEMP 36.4; O2SAT 100
[2023-09-29] MEDS: OLANZapine 5 mg ODT PO (15:30)
--- NOTE | 2023-09-29 17:06 | PC.NURSE ---
PT REFUSED STRAIGHT CATHETERIZING THROUGHOUT THE DAY STATING THAT HE WAS ABLE TO URINATE. WHEN STAFF BLADDER SCANNED PT ONLY HAD 184ML IN PT BLADDER.
[2023-09-29 17:44] LABS: Glucose Point of Care 116 mg/dL (70-110)
[2023-09-29 19:54] LABS: Glucose Point of Care 113 mg/dL (70-110)
[2023-09-29 20:00] VITALS: BP 105/74; PULSE 84; RESP 18; TEMP 36.4; O2SAT 100
[2023-09-29] MEDS: CLONazepam 1 mg Tablet PO (20:27)
[2023-09-29] MEDS: acetaminophen 325 mg Tablet 650 MG PO (20:28)
[2023-09-29] MEDS: ziprasidone hcl 40 mg Capsule 80 MG PO (20:28)
[2023-09-29] MEDS: trazodone 100 mg Tablet PO (20:28)
[2023-09-29] MEDS: nicotine 4 mg lozenge MUCOUS MEM (20:48)
--- NOTE | 2023-09-29 21:11 | PC.NURSE ---
PT IS OBSERVED HAVING A FLAT AFFECT AND IS PARANOID AT TIMES. WHEN PT WAS GIVEN HIS BED TIME MEDS PT STOOD AND STARRED AT HIS MEDICATIONS FOR AN EXTENDED LENGTH OF TIME. PT STATED I HAVE TO JUST CHECK THEM ALL OUT, I HAVE BLUE ONES AND ROUND ONES SO I HAVE TO TAKE THEM AT DIFFERENT TIMES. PT DID EVENTUALLY TAKE ALL HIS MEDICATIONS THEN ASKED FOR A NICOTINE BERT STATING I USE TO SMOKE AND I'M GETTING WORKED UP SO IT MAY HELP ME. PT ALSO STATES HE HAS NOT HAD A BM FOR SEVERAL DAYS, MILK OF MAG 30 MLS WAS GIVEN ORDERED FOR CONSTIPATION. PT DELAYED TAKING IT BRIEFLY AND APPEARED CONFUSED THAT HE DID NOT KNOW WHICH TO TAKE FIRST THE LIQUID MED OR THE NICOTINE BERT. PT WAS GIVEN SIMPLE ONE STEP DIRECTIONS ON HOW TO TAKE HIS MEDICATIONS, PT WAS ABLE TO FIGURE IT OUT AND TOOK BOTH MEDS ORDERED. REPORTS NECK PAIN 5/10, TYLENOL 650 MG WAS GIVEN ORDERED FOR PAIN. DENIES SI/HI AND AVH AT THIS TIME. RATES ANXIETY 2/10 AND DEPRESSION 2/10. REPORTS BOTH ARE IMPROVING. PT NOTIFIED STAFF THAT HE NEEDED TO SELF CATH, WHEN STAFF WENT IN WITH SUPPLIES PT DECLINED TO CATH SELF AT THAT TIME. PT DID ATTEMPT TO TAKE THE [place] JE[place] AND STATED I NEED THAT TO GO NUMBER TWO. RN EDUCATED PT THAT HE CAN NOT HAVE THE [place] JELLY TO GO NUMBER TWO, THIS RN HAS ALREADY GIVEN MEDICATIONS FOR THAT. PT AGAIN APPEARED TO BE CONFUSED THEN MUMBLED UNDER HIS BREATH WHERE THE RN COULD NOT HEAR WHAT WAS SAID. PT WAS GIVEN A SNACK AND DRINK AND MADE COMFORTABLE FOR THE NIGHT TO PROMOTE GOOD SLEEP PATTERNS. ALL QUESTIONS WERE ANSWERED AND SUPPORT WAS VOICED. PT IN BED RESTING AT THIS TIME.
--- NOTE | 2023-09-30 04:55 | PC.NURSE ---
PT WAS GIVEN MILK OF MAG 30 MLS EARLIER IN THE SHIFT FOR COMPLAINTS OF CONSTIPATION. PT HAS NOT HAD A BM SINCE. PO FLUIDS WERE ENCOURAGED WELL ACTIVITY. BS ACTIVE IN ALL FOUR QUADRANTS, ABDOMEN SOFT AND NON TENDER AT THIS TIME.
[2023-09-30 06:00] VITALS: BP 100/65; PULSE 75; RESP 16; TEMP 36.8; O2SAT 98
[2023-09-30] MEDS: levothyroxine 88 mcg Tablet PO (06:07)
[2023-09-30] MEDS: buPROPion XL (24 HR) 150 mg Tablet PO (06:07)
[2023-09-30 07:55] LABS: Glucose Point of Care 112 mg/dL (70-110)
[2023-09-30] MEDS: cetirizine 10 mg Tablet PO (08:38)
[2023-09-30] MEDS: dicyclomine 10 mg Capsule PO ×3 (08:38→20:21)
[2023-09-30] MEDS: aspirin 81 mg EC Tablet PO (08:38)
[2023-09-30] MEDS: multivitamin therapeutic Tablet 1 TAB PO (08:38)
[2023-09-30] MEDS: thiamine 100 mg Tablet PO (08:39)
[2023-09-30] MEDS: folic acid 1 mg Tablet PO (08:39)
[2023-09-30] MEDS: duloxetine 60 mg Capsule PO ×2 (08:39→18:13)
[2023-09-30] MEDS: paliperidone ER 6 mg Tablet PO (08:39)
[2023-09-30] MEDS: hyDROXYzine 25 mg Capsule PO ×2 (08:39→18:13)
[2023-09-30] MEDS: atorvastatin 40 mg Tablet 80 MG PO (08:39)
[2023-09-30] MEDS: pantoprazole DR 40 mg Tablet PO (08:39)
--- NOTE | 2023-09-30 08:40 | W.PM.NPUPNS ---
Subjective NPU Subjective: Patient presented today reporting that he is doing okay. He reported having some discomfort from his perception of having retained urine. We discussed obtaining a hospitalist consult and awaiting their thoughts regarding how to proceed from the standpoint of straight cathing or using medication like Flomax or the like. Otherwise he denied any problems and denied any side effects of the medication. Mental Status Exam MSE Comments: This is a slender white male in hospital scrubs looking older than his stated age with limited grooming and eye contact. No abnormal movements except for mild psychomotor retardation. More cooperative with exam in mild distress. Speech was more normal rate and volume. Mood described as pretty good, affect appeared mostly euthymic. Thought process linear . Thought content: Patient denied suicidal or homicidal ideation, there were no delusions noted and none reported, he did not appear to be attending to internal stimuli. Attention and concentration were more intact and memory appeared reliable but none were formally tested. He is alert and oriented to person and place. Insight and judgment are improving and impulse control are limited but improving. Vitals/I&O/Wt Last Vital Signs Temp 98.3 F 09/30/23 06:00 Pulse 75 09/30/23 06:00 Resp 16 09/30/23 06:00 BP 100/65 09/30/23 06:00 Pulse Ox 98 09/30/23 06:00 O2 Del Method Room Air 09/30/23 06:00 09/29/23 09/30/23 09/30/23 22:59 06:59 14:59 Intake Total 480 / 480 Balance 480 / 480 Weight last 48 hrs Weight 60.498 kg Data NPU 09/24/23 05:00 09/24/23 05:00 A&P Assessment and plan (1) Unresponsive: (2) Acute psychosis: (3) Diabetes: Qualifiers: Diabetes mellitus type: type 2 Diabetes mellitus residential insulin use: without joint terminal attack controller use Diabetes mellitus complication status: without complication Qualified Code(s): E11.9 - Type 2 diabetes mellitus without complications (4) Noncompliance with medication regimen: (5) Hypothyroid: Qualifiers: Hypothyroidism type: unspecified Qualified Code(s): E03.9 - Hypothyroidism, unspecified Plan This is a 63-year-old male who presented to the emergency department with police with reports of bizarre behavior, wandering around and endorsing auditory hallucinations and appearing confused on interview with some concerns for either overtaking medications or missing doses with benzodiazepines involved. 1. Continue current medications. Continue Invega and increased from 6 to 9 mg p.o. daily. Invega Sustenna 234 mg IM loading dose to the deltoid administered yesterday 09/27/2023. 2. Returned to neuropsychiatric unit 3. Continue every 15 minute checks for safety 4. Initiated 96-hour hold for psychosis and continued safety concerns. 21-day hold granted 09/27/2023. Likely will do Diana. 5. Would consider CIWA protocol. 6. Appreciate hospitalists consult and will follow recommendations as indicated. Reconsult hospitalist related to urinary retention and will await recommendations and follow as indicated. Involuntary Hold Information 96 Hour Hold: 96 Hour Involuntary Admission: No Attestations NPU Medical Necessity Statement*: Inpatient hospitalization is medically necessary and the clinically appropriate intervention at this time. We will monitor medications and make changes as indicated. Likely length of stay 7-10 days. Coding Level of Care Code Acute Code for Chg Fwd Diagnoses Unresponsive R41.89 Acute psychosis F23 Type 2 diabetes mellitus without complication, without long-term current use of insulin E11.9 Diabetes mellitus type: type 2 Diabetes mellitus joint terminal attack controller insulin use: without joint terminal attack controller use Diabetes mellitus complication status: without complication Noncompliance with medication regimen Z91.148 Hypothyroidism, unspecified type E03.9 Hypothyroidism type: unspecified
[2023-09-30] MEDS: metoprolol tartrate 25 mg Tablet 12.5 MG PO ×2 (08:41→20:21)
[2023-09-30 12:05] LABS: Glucose Point of Care 105 mg/dL (70-110)
[2023-09-30 14:00] VITALS: BP 107/64; PULSE 88; RESP 15; TEMP 36.7; O2SAT 98
[2023-09-30 18:14] LABS: Glucose Point of Care 83 mg/dL (70-110)
[2023-09-30 20:05] LABS: Glucose Point of Care 131 mg/dL (70-110)
[2023-09-30] MEDS: trazodone 100 mg Tablet PO (20:21)
[2023-09-30] MEDS: ziprasidone hcl 40 mg Capsule 80 MG PO (20:22)
[2023-09-30] MEDS: CLONazepam 1 mg Tablet PO (20:22)
[2023-09-30 20:54] VITALS: BP 115/68; PULSE 81; RESP 16; TEMP 36.6; O2SAT 96
--- NOTE | 2023-09-30 21:19 | PC.NURSE ---
SITTING ON BED. PT COOPERATIVE AND TOOK MEDICATIONS. DECLINES NEEDING TO SELF CATH AT THIS TME. PT STATED HE SELF CATHED ONCE TODAY AND HAS BEEN PEEING JUST FINE. DENIES SI/HI AND AVH AT THIS TIME. DENIES PAIN. RATES ANXIETY 4/10 AND DEPRESSION 2/10. AFFECT REMAINS FLAT WITH MOOD DEPRESSED AND SAD. REPORTS BM LAST SHIFT, MILK OF MAG ON PREVIOUS SHIFT DEEMED EFFECTIVE. ALL QUESTIONS ANSWERED AND SUPPORT WAS VOICED.
[2023-10-01 06:00] VITALS: BP 103/64; PULSE 61; RESP 16; TEMP 36.6; O2SAT 100
[2023-10-01 07:42] LABS: Glucose Point of Care 125 mg/dL (70-110)
[2023-10-01] MEDS: levothyroxine 88 mcg Tablet PO (07:44)
[2023-10-01] MEDS: dicyclomine 10 mg Capsule PO ×3 (07:45→20:39)
[2023-10-01] MEDS: aspirin 81 mg EC Tablet PO (07:45)
[2023-10-01] MEDS: atorvastatin 40 mg Tablet 80 MG PO (07:45)
[2023-10-01] MEDS: paliperidone ER 6 mg Tablet PO (07:45)
[2023-10-01] MEDS: thiamine 100 mg Tablet PO (07:45)
[2023-10-01] MEDS: hyDROXYzine 25 mg Capsule PO ×2 (07:45→18:04)
[2023-10-01] MEDS: docusate sodium 100 mg Capsule PO (07:45)
[2023-10-01] MEDS: duloxetine 60 mg Capsule PO ×2 (07:45→18:04)
[2023-10-01] MEDS: multivitamin therapeutic Tablet 1 TAB PO (07:46)
[2023-10-01] MEDS: pantoprazole DR 40 mg Tablet PO (07:46)
[2023-10-01] MEDS: buPROPion XL (24 HR) 150 mg Tablet PO (07:46)
[2023-10-01] MEDS: cetirizine 10 mg Tablet PO (07:46)
[2023-10-01] MEDS: folic acid 1 mg Tablet PO (07:46)
[2023-10-01] MEDS: nicotine 21 mg Patch 1 PATCH TRANSDERMA (07:52)
--- NOTE | 2023-10-01 09:29 | P.CONIM_ITS ---
Providers/Reason For Consult 2 Consulting Physician/Specialty*: Judy Reilly/ Hospitalist Reason for Consult*: Dysuria Requesting Physician: Dr. Jus Figueroa Attending Physician: Jus Figueroa MD History of Present Illness History of Present Illness Christo Moss is a 63 year old male who is currently admitted to the neuropsychiatry unit for acute psychosis. Medicine consult is obtained today for dysuria. Mr. Moss tells me that he has a past medical history of urinary issues but unable to tell me with certainty as to what these are. He has recently moved here from [place] to the [facility] to live with his daughter. He states that he was under care of a urologist when he was in [place]. He has had to intermittently self catheterize in the past due to problems with incomplete voiding. He does not know if he has been diagnosed with prostatomegaly or prostatitis in the past. He does not have a history of recurrent or chronic cystitis as far as he is aware. Currently he reports some burning with micturition, difficulty initiating and holding a steady stream of urine, increased effort at micturition and a feeling of incomplete evacuation. He has been BladderScan during the course of his admission here with 184 cc urine noted at its peak. He is wondering if he needs to intermittently self cath currently. He is uncertain if he was ever on Flomax but states that the medication name sounds familiar. No history of STDs. No history of fever or chills. Review of Systems 2 General: Reports: 10 or more systems reviewed and unremarkable except in HPI and below Const: Denies: fever(s), chills or body aches Eyes: Denies: change in vision, blurry vision or photophobia ENMT: Reports: hoarseness; Denies: throat pain, enlarged tonsils, odynophagia or nasal congestion Card: Denies: chest pain, palpitations, irregular heart rhythm, edema, swelling of feet/ankles, lightheadedness, pre-syncope, dyspnea on exertion or orthopnea Resp: Denies: dyspnea, productive cough, non-productive cough, wheezing, stridor, pain on inspiration, change in phlegm color, hemoptysis or chest congestion GI: Denies: abdominal pain, nausea, vomiting, hematemesis, coffee ground emesis, dysphagia, heartburn, diarrhea, constipation, GI cramping, change in stool character, hematochezia or melena : Denies: flank pain, dysuria, urinary frequency, urinary urgency, urinary hesitancy or hematuria Musc: Denies: neck pain, back pain, extremity pain, joint swelling, joint warmth or deformity Neuro: Denies: headache(s), numbness in extremities, weakness in extremities, sensory changes, difficulty walking, frequent falls, dizziness, vertigo, behavioral changes, Slurred speech present or seizure-like activity Psych: Denies: anxiety, depression, suicidal ideation or homicidal ideation Endo: Denies: polyuria, polydipsia, tired all the time, cold intolerance or hot flashes Yuval/Lymph: Denies: easy bruising or easy bleeding Medications/Allergies Home Medications Medication Instructions Recorded Confirmed Last Taken Type albuterol sulfate 90 mcg/actuation 2 puff inhalation Q6H PRN Cough 08/20/23 09/20/23 Unknown History aerosol inhaler aspirin 81 mg tablet,delayed 81 mg PO DAILY #30 tabs 08/20/23 09/20/23 1 Day Ago Rx release (Adult Aspirin Regimen) ~09/19/23 atorvastatin 80 mg tablet 80 mg PO DAILY #30 tabs 08/20/23 09/20/23 1 Day Ago Rx ~09/19/23 bupropion HCl 150 mg 24 hr tablet, 150 mg PO QAM 08/20/23 09/20/23 2 Days Ago History extended release ~09/18/23 cetirizine 10 mg capsule (All Day 10 mg PO DAILY ALLERGIES 08/20/23 09/20/23 1 Day Ago History Allergy (cetirizine)) ~09/19/23 docusate sodium 100 mg tablet 100 mg PO DAILY CONSTIPATION 08/20/23 09/20/23 3 Days Ago History ~09/17/23 duloxetine 60 mg capsule,delayed 60 mg PO BID #60 caps 08/20/23 09/20/23 1 Day Ago Rx release ~09/19/23 esomeprazole magnesium 40 mg 40 mg PO DAILY #30 caps 08/20/23 09/20/23 1 Day Ago Rx capsule,delayed release ~09/19/23 gabapentin 300 mg capsule 300 mg PO TID 08/20/23 09/20/23 1 Day Ago History ~09/19/23 hydroxyzine HCl 25 mg tablet 25 mg PO BID ANXIETY 08/20/23 09/20/23 1 Day Ago History ~09/19/23 isosorbide dinitrate 10 mg tablet 10 mg PO BID #60 tabs 08/20/23 09/20/23 1 Day Ago Rx ~09/19/23 lisinopril 5 mg tablet 5 mg PO DAILY #30 tabs 08/20/23 09/20/23 1 Day Ago Rx ~09/19/23 metoprolol succinate 25 mg 12.5 mg (1/2 x 25 mg) PO DAILY #30 08/20/23 09/20/23 2 Days Ago Rx tablet,extended release 24 hr tabs ~09/18/23 polyethylene glycol 3350 17 17 g PO DAILY PRN CONSTIPATION 08/20/23 09/20/23 Unknown History gram/dose oral powder ziprasidone HCl 80 mg capsule 80 mg PO BID #30 caps 08/20/23 09/20/23 1 Day Ago Rx ~09/19/23 clonazepam 0.5 mg tablet 0.5 mg PO BIDAC 08/22/23 09/20/23 1 Day Ago History ~09/19/23 dicyclomine 10 mg capsule 10 mg PO TID 09/20/23 09/20/23 09/20/23 History levothyroxine 88 mcg tablet 88 mcg PO QAM 09/20/23 09/20/23 1 Day Ago History ~09/19/23 metformin 500 mg tablet 500 mg PO DAILY 09/20/23 09/20/23 1 Day Ago History ~09/19/23 trazodone 100 mg tablet 200 mg PO BEDTIME 09/20/23 09/20/23 1 Day Ago History ~09/19/23 Allergies Allergy/AdvReac Type Severity Reaction Status Date / Time No Known Allergies Allergy Verified 09/20/23 03:34 Current Medications Generic Name Dose Route Start Last Admin Trade Name Freq PRN Reason Stop Dose Admin Acetaminophen 650 mg 09/20/23 02:43 09/29/23 20:28 Acetaminophen 325 Mg Tablet PO 650 mg Q4H PRN Administration MILD PAIN Aspirin 81 mg 09/20/23 09:00 10/01/23 07:45 Aspirin 81 Mg Ec Tablet PO 81 mg DAILY JAH Administration Atorvastatin Calcium 80 mg 09/20/23 09:00 10/01/23 07:45 Atorvastatin 40 Mg Tablet PO 80 mg DAILY JAH Administration Bupropion HCl 150 mg 09/20/23 06:00 10/01/23 07:46 Bupropion Xl (24 Hr) 150 Mg Tablet PO 150 mg QAM JAH Administration Cetirizine HCl 10 mg 09/20/23 09:00 10/01/23 07:46 Cetirizine 10 Mg Tablet PO 10 mg DAILY JAH Administration Clonazepam 1 mg 09/20/23 21:00 09/30/23 20:22 Clonazepam 1 Mg Tablet PO 1 mg BEDTIME JAH Administration Dicyclomine HCl 10 mg 09/20/23 09:00 10/01/23 07:45 Dicyclomine 10 Mg Capsule PO 10 mg TID JAH Administration Diphenhydramine HCl 50 mg 09/20/23 02:43 09/27/23 15:39 Diphenhydramine 50 Mg/Ml Sdv 1ml IM 50 mg Q4H PRN Administration Severe Aggression Docusate Sodium 100 mg 09/20/23 04:47 10/01/23 07:45 Docusate Sodium 100 Mg Capsule PO 100 mg DAILY PRN Administration CONSTIPATION Duloxetine HCl 60 mg 09/20/23 09:00 10/01/23 07:45 Duloxetine 60 Mg Capsule PO 60 mg BID JAH Administration Folic Acid 1 mg 09/20/23 12:45 10/01/23 07:46 Folic Acid 1 Mg Tablet PO 1 mg DAILY JAH Administration Gabapentin 300 mg 09/20/23 09:00 09/23/23 11:09 Gabapentin 300 Mg Capsule PO Not Given TID JAH Haloperidol Lactate 5 mg 09/20/23 02:43 09/27/23 15:40 Haloperidol Inj 5 Mg/Ml Inj 1 Ml IM 5 mg Q4H PRN Administration Severe Aggression Hydroxyzine Pamoate 25 mg 09/20/23 09:00 10/01/23 07:45 Hydroxyzine 25 Mg Capsule PO 25 mg BID JAH Administration Levothyroxine Sodium 88 mcg 09/20/23 06:00 10/01/23 07:44 Levothyroxine 88 Mcg Tablet PO 88 mcg QAM JAH Administration Lorazepam 2 mg 09/20/23 02:43 09/27/23 15:40 Lorazepam 2 Mg/Ml Inj 1 Ml IM 2 mg Q4H PRN Administration Severe Aggression Magnesium Hydroxide 30 ml 09/29/23 09:26 09/29/23 20:48 Magnesium Hydroxide 30 Ml Udc PO 30 ml BID PRN Administration CONSTIPATION Metformin HCl 500 mg 09/20/23 09:00 09/24/23 08:05 Metformin 500 Mg Tablet PO 500 mg DAILY JAH Administration Metoprolol Tartrate 12.5 mg 09/24/23 09:00 10/01/23 07:50 Metoprolol Tartrate 25 Mg Tablet PO Not Given BID@0900,2100 JAH Multivitamins Therapeutic 1 tab 09/20/23 12:45 10/01/23 07:46 Multivitamin Therapeutic Tablet PO 1 tab DAILY JAH Administration Nicotine 1 patch 09/20/23 02:43 10/01/23 07:52 Nicotine 21 Mg Patch TRANSDERMA 1 patch DAILY PRN Administration NICOTINE WITHDRAWAL Nicotine Polacrilex 4 mg 09/20/23 02:45 09/29/23 20:48 Nicotine 4 Mg Lozenge MUCOUS MEM 4 mg Q2H PRN Administration NICOTINE CRAVINGS Olanzapine 5 mg 09/20/23 02:43 09/29/23 15:30 Olanzapine 5 Mg Odt PO 5 mg Q4H PRN Administration Agitation/Psychosis Paliperidone 6 mg 09/26/23 12:59 10/01/23 07:45 Paliperidone Er 6 Mg Tablet PO 6 mg DAILY JAH Administration Pantoprazole Sodium 40 mg 09/20/23 09:00 10/01/23 07:[address] 40 Mg Tablet PO 40 mg DAILY JAH Administration Polyethylene Glycol 17 gm 09/20/23 04:42 09/29/23 08:09 Polyethylene Glycol 3350 Pkt 17 Gm PO 17 gm DAILY PRN Administration CONSTIPATION Thiamine Mononitrate 100 mg 09/20/23 12:45 10/01/23 07:45 Thiamine 100 Mg Tablet PO 100 mg DAILY JAH Administration Trazodone HCl 100 mg 09/20/23 21:00 09/30/23 20:21 Trazodone 100 Mg Tablet PO 100 mg BEDTIME JAH Administration Ziprasidone 80 mg 09/21/23 21:00 09/30/23 20:22 Ziprasidone Hcl 40 Mg Capsule PO 80 mg BEDTIME JAH Administration PFSH Acute 2 PFSH: Family History Grandmother Cancer paternal Diabetes Grandfather Cancer paternal Mother Diabetes Denies family history of Heart disease Chronic kidney disease (CKD) Thyroid disease Stroke Vitals/I&O/Wt Last Vital Signs Temp 97.9 F 10/01/23 06:00 Pulse 61 10/01/23 06:00 Resp 16 10/01/23 06:00 BP 103/64 10/01/23 06:00 Pulse Ox 100 10/01/23 06:00 O2 Del Method Room Air 10/01/23 06:00 Physical Exam 2 Narrative: General: No acute distress, AO x3 HEENT: PERRLA, pupils bilaterally equal and reactive, pallors not present Chest: Normal vesicular breath sounds, no added sounds, equal good air entry bilaterally CVS: S1-S2 regular, no murmurs, no tachycardia, no gallops, no rubs Abdomen: Soft, nontender, no organomegaly, bowel sounds present Neuro: No focal deficits, no facial deformity, AO x3, power 5/5 in all limbs Data 09/24/23 05:00 10/01/23 10:45 A&P Assessment and plan (1) Urinary hesitancy: Patient reporting symptoms as noted above which make me concerned for BPH as a likely cause of his symptoms. Ideally patient would require an ultrasound of the scrotum/prostate and uroflowmetry to establish diagnosis with certainty, however these are not available on an inpatient basis. For now recommend starting Flomax 0.4 mg daily Check UA to evaluate for any underlying UTI. Check creatinine to ensure normal renal function in the presence of likely bladder outlet obstruction. Bladder scan q shift, straight cath if holding > 250 cc and unable to void will follow Coding Level of Care Code Acute Code for Chg Fwd Diagnoses Urinary hesitancy R39.11
[2023-10-01 12:03] LABS: Albumin Level 4.1 g/dL (3.5-5.2); Blood Urea Nitrogen 13 mg/dL (8-23); Calcium 9.4 mg/dL (8.5-10.5); Carbon Dioxide 25 mmol/L (22-29); Chloride 103 mmol/L (98-107); Glomerular Filtration Rate 136.5 mL/min (90-130); Glucose 87 mg/dL (65-115); Phosphorus 4.4 mg/dL (2.5-4.5); Sodium 139 mmol/L (136-145)
[2023-10-01 12:48] LABS: Anion Gap 15.4 (5-19); Potassium 4.4 mmol/L (3.5-5.1)
[2023-10-01] MEDS: tamsulosin 0.4 mg Capsule PO (13:37)
--- NOTE | 2023-10-01 13:52 | PC.NURSE ---
When this nurse asked patient if he wanted supplies for self-cath, patient said that he did not. This nurse informed patient that he is welcome to ask if he decided to do so.
[2023-10-01 13:55] VITALS: BP 105/65; PULSE 78; RESP 14; O2SAT 100
[2023-10-01] MEDS: magnesium hydroxide 30 mL UDC PO (15:16)
--- NOTE | 2023-10-01 19:07 | W.PM.NPUPNS ---
Subjective NPU Subjective: Patient presented today reporting that he is doing okay. He was continuing to be less delusional about any paranoia about this telegraphic typewriter repairer or the staff. He continues to focus on his desire to discharge sooner rather than later. We continue to discuss getting his second injection in this week and working with his daughter in regards to guardianship and safety for discharge. He denied any side effects of the medication. Mental Status Exam MSE Comments: This is a slender white male in hospital scrubs looking older than his stated age with limited grooming and eye contact. No abnormal movements except for mild psychomotor retardation. More cooperative with exam in mild distress. Speech was more normal rate and volume. Mood described as pretty good, affect appeared mostly euthymic. Thought process linear . Thought content: Patient denied suicidal or homicidal ideation, there were no delusions noted and none reported, he did not appear to be attending to internal stimuli. Attention and concentration were more intact and memory appeared reliable but none were formally tested. He is alert and oriented to person and place. Insight and judgment are improving and impulse control are limited but improving. Vitals/I&O/Wt Last Vital Signs Temp 97.9 F 10/01/23 06:00 Pulse 78 10/01/23 13:55 Resp 14 10/01/23 13:55 BP 105/65 10/01/23 13:55 Pulse Ox 100 10/01/23 13:55 O2 Del Method Room Air 10/01/23 06:00 Data NPU 09/24/23 05:00 10/01/23 10:45 A&P Assessment and plan (1) Unresponsive: (2) Acute psychosis: (3) Diabetes: Qualifiers: Diabetes mellitus type: type 2 Diabetes mellitus longterm insulin use: without longterm use Diabetes mellitus complication status: without complication Qualified Code(s): E11.9 - Type 2 diabetes mellitus without complications (4) Noncompliance with medication regimen: (5) Hypothyroid: Qualifiers: Hypothyroidism type: unspecified Qualified Code(s): E03.9 - Hypothyroidism, unspecified Plan This is a 63-year-old male who presented to the emergency department with police with reports of bizarre behavior, wandering around and endorsing auditory hallucinations and appearing confused on interview with some concerns for either overtaking medications or missing doses with benzodiazepines involved. 1. Continue current medications. Continue Invega and increased from 6 to 9 mg p.o. daily. Invega Sustenna 234 mg IM loading dose to the deltoid administered 09/27/2023. 2. Returned to neuropsychiatric unit 3. Continue every 15 minute checks for safety 4. Initiated 96-hour hold for psychosis and continued safety concerns. 21-day hold granted 09/27/2023. Likely will do Diana. 5. Would consider CIWA protocol. 6. Appreciate hospitalists consult and will follow recommendations as indicated. Reconsult hospitalist related to urinary retention and will await recommendations and follow as indicated. Involuntary Hold Information 96 Hour Hold: 96 Hour Involuntary Admission: No Attestations NPU Medical Necessity Statement*: Inpatient hospitalization is medically necessary and the clinically appropriate intervention at this time. We will monitor medications and make changes as indicated. Likely length of stay 6-9 days. Coding Level of Care Code Acute Code for Chg Fwd Diagnoses Unresponsive R41.89 Acute psychosis F23 Type 2 diabetes mellitus without complication, without long-term current use of insulin E11.9 Diabetes mellitus type: type 2 Diabetes mellitus longterm insulin use: without longterm use Diabetes mellitus complication status: without complication Noncompliance with medication regimen Z91.148 Hypothyroidism, unspecified type E03.9 Hypothyroidism type: unspecified
[2023-10-01 19:35] LABS: Glucose Point of Care 183 mg/dL (70-110)
[2023-10-01] MEDS: ziprasidone hcl 40 mg Capsule 80 MG PO (20:39)
[2023-10-01] MEDS: metoprolol tartrate 25 mg Tablet 12.5 MG PO (20:39)
[2023-10-01] MEDS: trazodone 100 mg Tablet PO (20:39)
[2023-10-01] MEDS: CLONazepam 1 mg Tablet PO (20:39)
[2023-10-01 20:48] VITALS: BP 98/63; PULSE 87; RESP 18; TEMP 36.4; O2SAT 99
[2023-10-01] MEDS: OLANZapine 5 mg ODT PO (21:50)
[2023-10-01 22:50] LABS: Add Urine Microscopic? NO; Charge for UA Resulting for Rev
[2023-10-01 22:56] LABS: Bilirubin Urine Neg (Negative); Blood Urine Neg (Negative); Glucose Urine UA Norm (Normal); Ketones Urine Negative (Negative); Leukocyte Esterase Urine Negative (Negative); Nitrate Urine Negative (Negative); Protein Urine Neg (Negative); Specific Gravity, Urine 1.015 (1.005-1.030); Sulfosalicylic Acid Urine Negative (Negative); Urine Appearance Clear (CLEAR); Urine Color Yellow (Yellow); Urobilinogen Urine Neg (Negative); pH Urine 9 (5-7)
[2023-10-02 06:00] VITALS: BP 92/58; PULSE 74; RESP 16; TEMP 36.9; O2SAT 97
[2023-10-02] MEDS: levothyroxine 88 mcg Tablet PO (06:27)
[2023-10-02] MEDS: buPROPion XL (24 HR) 150 mg Tablet PO (06:27)
[2023-10-02 08:00] VITALS: BP 94/60
[2023-10-02 08:24] LABS: Glucose Point of Care 118 mg/dL (70-110)
[2023-10-02] MEDS: atorvastatin 40 mg Tablet 80 MG PO (08:50)
[2023-10-02] MEDS: pantoprazole DR 40 mg Tablet PO (08:50)
[2023-10-02] MEDS: paliperidone ER 6 mg Tablet PO (08:50)
[2023-10-02] MEDS: duloxetine 60 mg Capsule PO ×2 (08:50→17:41)
[2023-10-02] MEDS: tamsulosin 0.4 mg Capsule PO (08:50)
[2023-10-02] MEDS: dicyclomine 10 mg Capsule PO ×3 (08:50→20:12)
[2023-10-02] MEDS: aspirin 81 mg EC Tablet PO (08:50)
[2023-10-02] MEDS: cetirizine 10 mg Tablet PO (08:50)
[2023-10-02] MEDS: hyDROXYzine 25 mg Capsule PO ×2 (08:50→17:41)
[2023-10-02] MEDS: thiamine 100 mg Tablet PO (08:50)
[2023-10-02] MEDS: folic acid 1 mg Tablet PO (08:50)
[2023-10-02] MEDS: multivitamin therapeutic Tablet 1 TAB PO (08:50)
[2023-10-02] MEDS: magnesium hydroxide 30 mL UDC PO ×2 (09:55→20:12)
[2023-10-02 12:05] LABS: Glucose Point of Care 107 mg/dL (70-110)
--- NOTE | 2023-10-02 13:40 | P.NPUPN_ITS ---
Subjective NPU 2 Subjective: Patient presented today reporting that things are going okay. We discussed him getting his next injection by Saturday. We discussed working with his daughter for likely discharge planning after that. He continued to be communicative and not show signs of paranoia towards this commercial real estate underwriter or otherwise. He denied any side effects of the medications. Mental Status Exam 2 MSE Comments: This is a slender white male in hospital scrubs looking older than his stated age with limited grooming and eye contact. No abnormal movements except for mild psychomotor retardation. More cooperative with exam in mild distress. Speech was more normal rate and volume. Mood described as pretty good, affect appeared mostly euthymic. Thought process linear . Thought content: Patient denied suicidal or homicidal ideation, there were no delusions noted and none reported, he did not appear to be attending to internal stimuli. Attention and concentration were more intact and memory appeared reliable but none were formally tested. He is alert and oriented to person and place. Insight and judgment are improving and impulse control are limited but improving. Vitals/I&O/Wt Last Vital Signs Temp 98.4 F 10/02/23 06:00 Pulse 74 10/02/23 06:00 Resp 16 10/02/23 06:00 BP 94/60 10/02/23 08:00 Pulse Ox 97 10/02/23 06:00 O2 Del Method Room Air 10/02/23 06:00 10/01/23 10/02/23 10/02/23 22:59 06:59 14:59 Output Total 300 / 300 Balance -300 / -300 Data NPU 09/24/23 05:00 10/01/23 10:45 A&P Assessment and plan (1) Unresponsive: (2) Acute psychosis: (3) Diabetes: Qualifiers: Diabetes mellitus type: type 2 Diabetes mellitus continuous churn buttermaker insulin use: without continuous churn buttermaker use Diabetes mellitus complication status: without complication Qualified Code(s): E11.9 - Type 2 diabetes mellitus without complications (4) Noncompliance with medication regimen: (5) Hypothyroid: Qualifiers: Hypothyroidism type: unspecified Qualified Code(s): E03.9 - Hypothyroidism, unspecified Plan This is a 63-year-old male who presented to the emergency department with police with reports of bizarre behavior, wandering around and endorsing auditory hallucinations and appearing confused on interview with some concerns for either overtaking medications or missing doses with benzodiazepines involved. 1. Continue current medications. Continue Invega and increased from 6 to 9 mg p.o. daily. Invega Sustenna 234 mg IM loading dose to the deltoid administered 09/27/2023. Next loading dose of 156 mg IM Saturday. 2. Returned to neuropsychiatric unit 3. Continue every 15 minute checks for safety 4. Initiated 96-hour hold for psychosis and continued safety concerns. 21-day hold granted 09/27/2023. Likely will do Diana. 5. Would consider CIWA protocol. 6. Appreciate hospitalists consult and will follow recommendations as indicated. Reconsult hospitalist related to urinary retention and will await recommendations and follow as indicated. Involuntary Hold Information 2 96 Hour Hold: 96 Hour Involuntary Admission: No Attestations NPU 2 Medical Necessity Statement*: Inpatient hospitalization is medically necessary and the clinically appropriate intervention at this time. We will monitor medications and make changes as indicated. Likely length of stay 5-8 days. Coding Level of Care Code Acute Code for Chg Fwd Diagnoses Unresponsive R41.89 Acute psychosis F23 Type 2 diabetes mellitus without complication, without long-term current use of insulin E11.9 Diabetes mellitus type: type 2 Diabetes mellitus continuous churn buttermaker insulin use: without continuous churn buttermaker use Diabetes mellitus complication status: without complication Noncompliance with medication regimen Z91.148 Hypothyroidism, unspecified type E03.9 Hypothyroidism type: unspecified
[2023-10-02 14:00] VITALS: BP 90/59; PULSE 93; RESP 16; TEMP 36.4; O2SAT 96
--- NOTE | 2023-10-02 17:58 | PC.NURSE ---
PT REFUSED PRN STRAIGHT CATHETER AT 1700 STATING THAT HE WAS ABLE TO GO ON HIS OWN PREVIOUSLY. PT CURRENT NEEDS ARE MET AT THIS TIME.
[2023-10-02 18:09] LABS: Glucose Point of Care 87 mg/dL (70-110)
[2023-10-02] MEDS: ziprasidone hcl 40 mg Capsule 80 MG PO (20:12)
[2023-10-02] MEDS: trazodone 100 mg Tablet PO (20:12)
[2023-10-02 20:22] LABS: Glucose Point of Care 168 mg/dL (70-110)
[2023-10-02 21:16] VITALS: BP 102/68; PULSE 99; RESP 16; O2SAT 94
[2023-10-02] MEDS: CLONazepam 1 mg Tablet PO (21:36)
--- NOTE | 2023-10-02 21:50 | PC.NURSE ---
Patient behavior Patient came to the window and was asked what he needed and he said I am back . I was lost now I am home . Explained that he was still in the hospital.
[2023-10-03 06:00] VITALS: BP 98/62; PULSE 77; RESP 16; O2SAT 98
[2023-10-03] MEDS: buPROPion XL (24 HR) 150 mg Tablet PO (06:28)
[2023-10-03] MEDS: levothyroxine 88 mcg Tablet PO (06:29)
[2023-10-03 08:18] LABS: Glucose Point of Care 109 mg/dL (70-110)
[2023-10-03] MEDS: multivitamin therapeutic Tablet 1 TAB PO (11:05)
[2023-10-03] MEDS: hyDROXYzine 25 mg Capsule PO ×2 (11:06→17:05)
[2023-10-03] MEDS: thiamine 100 mg Tablet PO (11:06)
[2023-10-03] MEDS: pantoprazole DR 40 mg Tablet PO (11:06)
[2023-10-03] MEDS: duloxetine 60 mg Capsule PO ×2 (11:06→17:05)
[2023-10-03] MEDS: folic acid 1 mg Tablet PO (11:06)
[2023-10-03] MEDS: aspirin 81 mg EC Tablet PO (11:07)
[2023-10-03] MEDS: atorvastatin 40 mg Tablet 80 MG PO (11:07)
[2023-10-03] MEDS: tamsulosin 0.4 mg Capsule PO (11:07)
[2023-10-03] MEDS: dicyclomine 10 mg Capsule PO ×3 (11:07→20:18)
[2023-10-03] MEDS: cetirizine 10 mg Tablet PO (11:07)
[2023-10-03] MEDS: paliperidone ER 6 mg Tablet PO (11:07)
[2023-10-03] MEDS: metoprolol tartrate 25 mg Tablet 12.5 MG PO (11:13)
[2023-10-03 12:11] LABS: Glucose Point of Care 108 mg/dL (70-110)
[2023-10-03 14:00] VITALS: BP 88/54; PULSE 58; RESP 14; TEMP 36.8; O2SAT 97
[2023-10-03 15:19] VITALS: BP 95/60; PULSE 59; RESP 15; O2SAT 98
--- NOTE | 2023-10-03 16:30 | P.NPUPN_ITS ---
Subjective NPU 2 Subjective: Patient presented today reporting that he was feeling a bit better. He was excited about the prospect of discharge. We discussed him getting his second Invega Sustenna injection tomorrow and then needing 1 in 4 weeks and after that point being on the every 4 week injection. He reported some somatic complaints related to his urinary incontinence. We discussed the plan for discharge tomorrow. Mental Status Exam 2 MSE Comments: This is a slender white male in hospital scrubs looking older than his stated age with limited grooming and eye contact. No abnormal movements except for mild psychomotor retardation. More cooperative with exam in mild distress. Speech was more normal rate and volume. Mood described as pretty good, affect appeared mostly euthymic. Thought process linear . Thought content: Patient denied suicidal or homicidal ideation, there were no delusions noted and none reported, he did not appear to be attending to internal stimuli. Attention and concentration were more intact and memory appeared reliable but none were formally tested. He is alert and oriented to person and place. Insight and judgment are improving and impulse control are limited but improving. 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 insulin use: without buttermilk drier operator use Diabetes mellitus complication status: without complication Qualified Code(s): E11.9 - Type 2 diabetes mellitus without complications (4) Noncompliance with medication regimen: (5) Hypothyroid: Qualifiers: Hypothyroidism type: unspecified Qualified Code(s): E03.9 - Hypothyroidism, unspecified Plan This is a 63-year-old male who presented to the emergency department with police with reports of bizarre behavior, wandering around and endorsing auditory hallucinations and appearing confused on interview with some concerns for either overtaking medications or missing doses with benzodiazepines involved. 1. Continue current medications. Continue Invega and increased from 6 to 9 mg p.o. daily. Invega Sustenna 234 mg IM loading dose to the deltoid administered 09/27/2023. Next loading dose of 156 mg IM tomorrow 2. Returned to neuropsychiatric unit 3. Continue every 15 minute checks for safety 4. Initiated 96-hour hold for psychosis and continued safety concerns. 21-day hold granted 09/27/2023. Likely will do Diana. 5. Would consider CIWA protocol. 6. Appreciate hospitalists consult and will follow recommendations as indicated. Reconsult hospitalist related to urinary retention and will await recommendations and follow as indicated. 7. Tentative plan for discharge tomorrow after second injection. Involuntary Hold Information 2 96 Hour Hold: 96 Hour Involuntary Admission: No Attestations NPU 2 Medical Necessity Statement*: Inpatient hospitalization is medically necessary and the clinically appropriate intervention at this time. We will monitor medications and make changes as indicated. Likely length of stay 1 day. Coding Level of Care Code Acute Code for Chg Fwd Diagnoses Unresponsive R41.89 Acute psychosis F23 Type 2 diabetes mellitus without complication, without long-term current use of insulin E11.9 Diabetes mellitus type: type 2 Diabetes mellitus penitentiary insulin use: without buttermilk drier operator use Diabetes mellitus complication status: without complication Noncompliance with medication regimen Z91.148 Hypothyroidism, unspecified type E03.9 Hypothyroidism type: unspecified
[2023-10-03] MEDS: acetaminophen 325 mg Tablet 650 MG PO (17:05)
--- NOTE | 2023-10-03 17:05 | PM.MISC ---
Miscellaneous Note Purpose of Documentation: hold metoprolol given bradycardia and soft BP. Continue flomax. intermittent self cath if needed. Plan discussed with RN
--- NOTE | 2023-10-03 17:12 | PC.NURSE ---
PT HAS REFUSED STRAIGHT CATHETER PT HAS BEEN ABLE TO URINATE ON HIS OWN TODAY. PT HAS FELT LETHARGIC THROUGHOUT THE DAY. PT BLOOD PRESSURES HAVE REMAINED ON THE SOFT SIDE. PHYSICIAN WAS NOTIFIED AND MEDICATIONS WERE PLACED ON HOLD. PT HAS BEEN ENCOURAGED TO DRINK FLUIDS FREQUENTLY THROUGHOUT THE DAY. PT WILL DRINK SMALL AMOUNTS OF FLUIDS AT A TIME THEN REFUSE TO DRINK ANY MORE. PT CURRENT NEEDS ARE MET AT THIS TIME.
[2023-10-03 17:18] LABS: Glucose Point of Care 111 mg/dL (70-110)
[2023-10-03] MEDS: ziprasidone hcl 40 mg Capsule 80 MG PO (20:18)
[2023-10-03] MEDS: trazodone 100 mg Tablet PO (20:18)
[2023-10-03] MEDS: CLONazepam 1 mg Tablet PO (20:18)
[2023-10-03 20:27] LABS: Glucose Point of Care 127 mg/dL (70-110)
[2023-10-03 21:47] VITALS: BP 72/45; PULSE 94; RESP 18; TEMP 36.8; O2SAT 99
[2023-10-03 22:06] VITALS: BP 98/52; PULSE 69; RESP 16; O2SAT 95
[2023-10-04 06:00] VITALS: BP 119/72; PULSE 78; RESP 16; O2SAT 98
[2023-10-04] MEDS: buPROPion XL (24 HR) 150 mg Tablet PO (06:15)
[2023-10-04] MEDS: levothyroxine 88 mcg Tablet PO (06:15)
[2023-10-04 08:05] LABS: Glucose Point of Care 113 mg/dL (70-110)
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
[2023-10-04] MEDS: duloxetine 60 mg Capsule PO (08:55)
[2023-10-04] MEDS: cetirizine 10 mg Tablet PO (08:55)
[2023-10-04] MEDS: atorvastatin 40 mg Tablet 80 MG PO (08:55)
[2023-10-04] MEDS: aspirin 81 mg EC Tablet PO (08:55)
[2023-10-04] MEDS: thiamine 100 mg Tablet PO (08:55)
[2023-10-04] MEDS: paliperidone ER 6 mg Tablet PO (08:55)
[2023-10-04] MEDS: multivitamin therapeutic Tablet 1 TAB PO (08:56)
[2023-10-04] MEDS: dicyclomine 10 mg Capsule PO ×2 (08:56→15:12)
[2023-10-04] MEDS: hyDROXYzine 25 mg Capsule PO (08:56)
[2023-10-04] MEDS: tamsulosin 0.4 mg Capsule PO (08:56)
[2023-10-04] MEDS: folic acid 1 mg Tablet PO (08:56)
[2023-10-04] MEDS: pantoprazole DR 40 mg Tablet PO (08:56)
[2023-10-04] MEDS: paliperidone palmitate 156 mg Syringe IM (10:23)
[2023-10-04 11:00] VITALS: BP 119/72; PULSE 78; RESP 16; O2SAT 98
[2023-10-04 12:23] LABS: Glucose Point of Care 86 mg/dL (70-110)
--- NOTE | 2023-10-04 12:28 | PC.NURSE ---
Patient refused bladder scan and self-cath at this time. He stated he was urinating fine on his own and didn't need anything. Patient did agree to let staff know if he felt he wasn't emptying his bladder fully or if he would like to self-cath.
[2023-10-04 14:00] VITALS: BP 105/77; PULSE 97; RESP 20; TEMP 36.6; O2SAT 98
== END 2023-10-04 16:12 | disposition home or self-care (01) | DRG 885 ==
LOC: ER 09-20 02:01 → NP 09-20 02:16 → MEDSURG 09-23 15:07 → NP 09-24 14:07
PROVIDERS: Internal Medicine; Student in an Organized Health Care Education/Training Program; Admitting Provider Psychiatry & Neurology Psychiatry; Emergency Provider Nurse Practitioner Family; Visit Provider Psychiatry & Neurology Psychiatry
DX: F23 Brief psychotic disorder (principal); R64 Cachexia; R00.1 Bradycardia, unspecified; N40.1 Benign prostatic hyperplasia with lower urinary tract symptoms; R39.11 Hesitancy of micturition; Z68.20 Body mass index [BMI] 20.0-20.9, adult; R40.4 Transient alteration of awareness; I10 Essential (primary) hypertension; E03.9 Hypothyroidism, unspecified; K21.9 Gastro-esophageal reflux disease without esophagitis; Z87.891 Personal history of nicotine dependence; K59.09 Other constipation; E11.40 Type 2 diabetes mellitus with diabetic neuropathy, unspecified; F31.9 Bipolar disorder, unspecified; F20.9 Schizophrenia, unspecified; Z91.148 Patient's other noncompliance with medication regimen for other reason
CPT/HCPCS: 36415; 36416; 51702; 51798; 70450; 73120; 74176; 80053; 80069; 80306; 80307; 81003; 82009; 82140; 82607; 82962; 83605; 83690; 83735; 84100; 84146; 84443; 84484; 85025; 93005; 96372; 97165; 99285; J1200; J1630; J2060; J7030

== ENCOUNTER → 2023-11-05 08:59 | Outpatient (BNVA) | payer MEDICAID, OTHER, SELFPAY | PROVIDERS: PCP Nurse Practitioner; Visit Provider Nurse Practitioner | DX: E03.9 Hypothyroidism, unspecified (principal); E11.9 Type 2 diabetes mellitus without complications; F20.9 Schizophrenia, unspecified; Z79.899 Other long term (current) drug therapy | CPT/HCPCS: 80053; 83036; 85025 ==

== ENCOUNTER → 2023-11-14 13:56 | Outpatient (BNVA) | payer MEDICAID, SELFPAY | PROVIDERS: PCP Nurse Practitioner; Visit Provider Podiatrist Foot & Ankle Surgery | DX: Q82.8 Other specified congenital malformations of skin (principal) | CPT/HCPCS: 17110; 99203 ==

== ENCOUNTER → 2023-11-26 10:47 | Outpatient (BNVA) | payer OTHER, SELFPAY | PROVIDERS: PCP Nurse Practitioner; Visit Provider Podiatrist Foot & Ankle Surgery | DX: Q82.8 Other specified congenital malformations of skin (principal) | CPT/HCPCS: 99213 ==

== ENCOUNTER → 2023-12-03 14:52 | Outpatient (BNVA) | payer MEDICAID, SELFPAY | PROVIDERS: PCP Nurse Practitioner; Visit Provider Nurse Practitioner | DX: M25.511 Pain in right shoulder (principal); Z79.899 Other long term (current) drug therapy | CPT/HCPCS: 73030; 80061 ==

== ENCOUNTER 2024-01-13 16:15 | Inpatient (IN) | payer MEDICAID, SELFPAY ==
[2024-01-13 16:19] VITALS: BP 129/83; PULSE 86; TEMP 36.7; O2SAT 97
--- NOTE | 2024-01-13 16:21 | XRR_ITS ---
PROCEDURE INFORMATION: Exam: XR Chest Exam date and time: 01/13/2024 4:32 PM Age: 63 years old Clinical indication: Screening exam; Other screening; Prior surgery; Surgery date: 6+ months; Surgery type: RT shoulder; Additional info: Hallucintations TECHNIQUE: Imaging protocol: Radiologic exam of the chest. Views: 1 view. COMPARISON: CR XR shoulder RT min 2V* [id number] 12/03/2023 3:02 PM FINDINGS: Lungs: No focal consolidation. Pleural spaces: No evidence of pneumothorax. No evidence of pleural effusion. Heart/Mediastinum: Cardiomediastinal silhouette is within normal limits. Bones/joints: No evidence of acute osseous abnormality. XR/XR chest 1V portable [id number] IMPRESSION: 1. No acute cardiopulmonary abnormality.
--- NOTE | 2024-01-13 16:32 | ECG_ITS ---
[facility] Test Date: 2024-01-13 Pat Name: Christo Moss Department: Room: Gender: Male Dietician: : 1960 Requested By: Marilyn Mart Order Number: [id number] Weldon MD: Fabian Trejo M.D. Measurements Intervals [place] Rate: 77 P: 67 ME: 172 QRS: 83 QRSD: 145 T: 27 QT: 432 QTc: 491 Interpretive Statements SINUS RHYTHM RIGHT BUNDLE BRANCH BLOCK [120+ ms QRS DURATION, UPRIGHT V1, 40+ ms S IN I/aVL/V4/V5/V6] Compared to ECG 09/21/2023 12:53:20 No significant changes Electronically Signed On 01-13-2024 18:07:05 CDT by Fabian Trejo M.D. [email or web address]
[2024-01-13 17:05] LABS: Basophils % 0.8 %; Eosinophils # 0.2 10^3/uL (0.0-0.8); Eosinophils % 3.5 %; Hematocrit 40.7 % (37-53); Lymphocytes # 0.9 10^3/uL (0.8-4.8); Lymphocytes % 19.4 %; Mean Corpuscular HGB Conc 34.2 g/dL (30-55); Mean Corpuscular Hemoglobin 29.9 pg (27-33); Mean Corpuscular Volume 87.5 fl (82-101); Mean Platelet Volume 8.3 fL (7.4-10.4); Monocytes # 0.4 10^3/uL (0.2-0.9); Monocytes % 8.4 %; Neutrophils # 3.23 10^3/uL (1.8-7.7); Neutrophils % 67.5 %; Nucleated Red Blood Cells % 0 %; Platelet Count 207 10^3/cmm (157-399); Red Blood Count 4.65 10^6/uL (3.85-5.65); White Blood Count 4.79 10^3/uL (3.29-11.43)
[2024-01-13] MEDS: haloperidol inj 5 mg/mL INJ 1 mL IM (17:08)
[2024-01-13] MEDS: LORazepam 2 mg/mL INJ 10 mL MDV 1 MG IM (17:10)
[2024-01-13 17:32] LABS: Acetaminophen < 5.0 ug/mL (10-30); Alanine Aminotransferase 24 U/L (0-41); Albumin Level 4.8 g/dL (3.5-5.2); Alcohol Level < 10 mg/dL (0-10); Alkaline Phosphatase 73 U/L (40-130); Anion Gap 17.4 (5-19); Aspartate Amino Transferase 13 U/L (0-40); Blood Urea Nitrogen 5 mg/dL (8-23); Carbon Dioxide 27 mmol/L (22-29); Chloride 104 mmol/L (98-107); Globulin 2.6 g/dL (1.3-4.6); Glomerular Filtration Rate 114.3 mL/min (90-130); Glucose 113 mg/dL (65-115); Osmolality Calculated 296 mOsm/kg (285-295); Potassium 4.4 mmol/L (3.5-5.1); Salicylate 1.2 mg/dL (3-10); Sodium 144 mmol/L (136-145); Thyroid Stimulating Hormone 2.28 uIU/mL (0.27-4.20); Total Bilirubin 0.2 mg/dL (0.15-1.2); Total Protein 7.4 g/dL (6.6-8.7)
--- NOTE | 2024-01-13 17:39 | ED.C_ITS ---
HPI - Psych 2 General: Chief Complaint: Psychiatric Symptoms Stated Complaint: hallucinations Time Seen by Provider: 01/13/24 16:19 History of Present Illness: 63-year-old male with a history of demen tia depression and psychiatric issues who presents to the emergency room with worsening hallucinations and agitation by ambulance from home. Apparently his daughter had called because she was worried about him and felt like he might be a danger to himself. He says he does not know why he is here and he does not want to be here. Review of Systems 2 Narrative: Unable to obtain secondary to dementia and agitation PFSH ED 2 PFSH: Medical History (Updated 01/13/24 @ 21:13 by Marilyn Ambrose MD) Mild neurocognitive disorder Major depressive disorder, recurrent, mild Vapes nicotine containing substance On combination antipsychotic drug therapy Psychiatric care Family History Grandmother Cancer paternal Diabetes Grandfather Cancer paternal Mother Diabetes Denies family history of Heart disease Chronic kidney disease (CKD) Thyroid disease Stroke Physical Exam 2 Narrative: EXAM NARRATIVE: General: Alert, no acute distress. Skin: Warm, dry. Head: Normocephalic, atraumatic. Neck: Supple, trachea midline. Eye: Extraocular movements are intact. Ears, nose, mouth and throat: mucosa moist. Cardiovascular: Regular, Normal peripheral perfusion. Respiratory: Lungs are clear to auscultation, respirations are non-labored, breath sounds are equal, Symmetrical chest wall expansion. Gastrointestinal: Soft, Nontender, Non distended, Normal bowel sounds. Musculoskeletal: Normal ROM, no deformity. Neurological: Alert but not oriented, No focal neurological deficit observed. Psychiatric: Patient seems confused/demented. Course 2 Vital Signs: Vital signs: Vital Signs Temperature 98.1 F 01/13/24 16:19 Pulse Rate 77 01/13/24 18:18 Blood Pressure 181/98 01/13/24 18:18 Pulse Oximetry 96 01/13/24 18:18 Oxygen Delivery Me thod Room Air 01/13/24 18:18 MDM - Psych Medical Decision Making Medical decision making: Differential diagnosis for a geriatric patient with worsening dementia/behavioral problems including but not limited to and based on the above HPI, review of systems and physical exam: Concerns for infection such as UTI or pneumonia. Alcohol intoxication. Cardiac issues or other medical problems to be ruled out prior to a geriatric/psychiatric admission Orders placed to evaluate differential diagnosis based on the above differential, HPI and physical exam Lab work, chest X-ray and ekg ordered to evaluate the pathologies and to clear the patient medically prior Chest x-ray: No acute process. No infiltrate. No pneumothorax. No cardiomegaly. This was reviewed and interpreted by myself the ER physician. EKG: Time 1632 rate 77 normal sinus rhythm, No ST-T changes, no ectopy, right bundle branch block, This was reviewed and interpreted by myself the ER physician at 1636 Lab review: - Medically cleared. - EKG shows no ischemic changes. - Blood alcohol level is negative, as well as salicylate and Tylenol. - Drug screen is pending -Urinalysis is pending. - No anemia. - BUN and creatinine are within normal limits. Reassessment: Spoke with patient as he did not want to be admitted and he actually was fairly reasonable. I told him that his daughter was concern for his wellbeing and he was surprised that she had come up and put the affidavit in but then agreed to come and and be evaluated. Assessment and plan: Delusions Schizophrenia Agitation -Transfer to geriatric neuropsychiatric facility for continued evaluation and treatment. - All lab work was reviewed and interpreted personally by myself, the ER physician - Evaluation and treatment of this problem were appropriate in the emergency setting Lab Data 01/13/24 16:47 01/13/24 16:47 Radiology Impressions Chest X-Ray 01/13/24 16:21 IMPRESSION: 1. No acute cardiopulmonary abnormality. Laboratory Results WBC 4.79 10^3/uL (3.29-11.43) 01/13/24 16:47 RBC 4.65 10^6/uL (3.85-5.65) 01/13/24 16:47 Hgb 13.90 g/dL (11.27-16.99) 01/13/24 16:47 Hct 40.7 % (37-53) 01/13/24 16:47 MCV 87.5 fl (82-101) 01/13/24 16:47 MCH 29.9 pg (27-33) 01/13/24 16:47 MCHC 34.2 g/dL (30-55) 01/13/24 16:47 RDW 12.0 % (12.1-15.1) L 01/13/24 16:47 Plt Count 207 10^3/cmm (157-399) 01/13/24 16:47 MPV 8.3 fL (7.4-10.4) 01/13/24 16:47 Neut % (Auto) 67.5 % 01/13/24 16:47 Lymph % (Auto) 19.4 % 01/13/24 16:47 Faulkner % (Auto) 8.4 % 01/13/24 16:47 Eos % (Auto) 3.5 % 01/13/24 16:47 Baso % (Auto) 0.8 % 01/13/24 16:47 Neut # (Auto) 3.23 10^3/uL (1.8-7.7) 01/13/24 16:47 Lymph # (Auto) 0.9 10^3/uL (0.8-4.8) 01/13/24 16:47 Faulkner # (Auto) 0.4 10^3/uL (0.2-0.9) 01/13/24 16:47 Eos # (Auto) 0.2 10^3/uL (0.0-0.8) 01/13/24 16:47 Baso # (Auto) 0.0 10^3/uL (0.0-0.1) 01/13/24 16:47 Nucleated RBC % (auto) 0 % 01/13/24 16:47 Nucleated RBCs # 0.0 /100WBC 01/13/24 16:47 Sodium 144 mmol/L (136-145) 01/13/24 16:47 Potassium 4.4 mmol/L (3.5-5.1) 01/13/24 16:47 Chloride 104 mmol/L (98-107) 01/13/24 16:47 Carbon Dioxide 27 mmol/L (22-29) 01/13/24 16:47 Anion Gap 17.4 (5-19) 01/13/24 16:47 BUN 5 mg/dL (8-23) L 01/13/24 16:47 Creatinine 0.7 mg/dL (0.7-1.2) 01/13/24 16:47 GFR Calculation 114.3 mL/min (90-130) 01/13/24 16:47 Glucose 113 mg/dL (65-115) 01/13/24 16:47 Calculated Osmolality 296 mOsm/kg (285-295) H 01/13/24 16:47 Calcium 9.0 mg/dL (8.5-10.5) 01/13/24 16:47 Total Bilirubin 0.2 mg/dL (0.15-1.2) 01/13/24 16:47 AST 13 U/L (0-40) 01/13/24 16:47 ALT 24 U/L (0-41) 01/13/24 16:47 Alkaline Phosphatase 73 U/L (40-130) 01/13/24 16:47 Total Protein 7.4 g/dL (6.6-8.7) 01/13/24 16:47 Albumin 4.8 g/dL (3.5-5.2) 01/13/24 16:47 Globulin 2.6 g/dL (1.3-4.6) 01/13/24 16:47 TSH 2.28 uIU/mL (0.27-4.20) 01/13/24 16:47 Salicylates 1.2 mg/dL (3-10) L 01/13/24 16:47 Acetaminophen < 5.0 ug/mL (10-30) L 01/13/24 16:47 Ethyl Alcohol < 10 mg/dL (0-10) 01/13/24 16:47 No radiology studies performed this visit Discharge Plan Discharge Patient Disposition: Admitted As Inpatient Clinical Impression: Schizophrenia, Hallucinations, Agitation Condition: Stable Coding Level of Care Code ED Occupational Therapy Asst for Jimena Muller
[2024-01-13 18:18] VITALS: BP 181/98; PULSE 77; O2SAT 96
--- NOTE | 2024-01-13 20:11 | PC.NURSE ---
96 HH Pt served with copy of 96 HH by this RN, 2 additional RNs and security. Pt was upset and stated multiple times that he was not staying. ER physician assisted with speaking to pt, pt ultimately agreed to stay in facility without incident.
[2024-01-13 21:36] VITALS: BP 108/73; PULSE 71; O2SAT 100
[2024-01-13 21:47] LABS: Influenza A by IFA Negative (Negative); Influenza B by IFA Negative (Negative)
[2024-01-13 21:48] LABS: SARS Covid-2 Antigen Negative (Negative)
[2024-01-13] MEDS: ibuprofen 600 mg Tablet PO (23:50)
[2024-01-13] MEDS: hyDROXYzine 25 mg Capsule 50 MG PO (23:51)
[2024-01-14 06:00] VITALS: BP 133/83; PULSE 76; RESP 18; TEMP 36.4; O2SAT 96
[2024-01-14] MEDS: levothyroxine 88 mcg Tablet PO (06:15)
[2024-01-14] MEDS: OLANZapine 5 mg ODT PO (06:45)
[2024-01-14] MEDS: buPROPion XL (24 HR) 150 mg Tablet PO (08:24)
[2024-01-14] MEDS: aspirin 81 mg EC Tablet PO (08:24)
[2024-01-14] MEDS: pantoprazole DR 40 mg Tablet PO (08:25)
[2024-01-14] MEDS: tamsulosin 0.4 mg Capsule 0.400000000000000022 MG PO (08:25)
[2024-01-14] MEDS: duloxetine 60 mg Capsule PO (08:25)
[2024-01-14] MEDS: hyDROXYzine 25 mg Capsule PO ×3 (08:25→21:20)
[2024-01-14] MEDS: dicyclomine 10 mg Capsule PO ×3 (08:25→21:20)
[2024-01-14] MEDS: donepezil 5 MG Tablet PO (08:25)
[2024-01-14] MEDS: isosorbide mononitrate 20 mg Tablet 10 MG PO (08:33)
[2024-01-14 14:00] VITALS: BP 130/87; PULSE 102; RESP 20; TEMP 36.3; O2SAT 98
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
[2024-01-14] MEDS: haloperidol inj 5 mg/mL INJ 1 mL IM (17:18)
[2024-01-14] MEDS: LORazepam 2 mg/mL INJ 1 mL IM (17:18)
[2024-01-14] MEDS: diphenhydrAMINE 50 mg/mL SDV 1mL IM (17:19)
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
[2024-01-14 19:24] VITALS: BP 128/80; PULSE 87; RESP 15; O2SAT 96
[2024-01-14] MEDS: trazodone 100 mg Tablet PO (21:21)
[2024-01-14] MEDS: ziprasidone hcl 40 mg Capsule 80 MG PO (21:21)
[2024-01-14] MEDS: CLONazepam 1 mg Tablet PO (21:21)
[2024-01-14] MEDS: cetirizine 10 mg Tablet PO (21:21)
[2024-01-15 06:00] VITALS: BP 120/74; PULSE 117; RESP 18; TEMP 36.3; O2SAT 97
[2024-01-15] MEDS: levothyroxine 88 mcg Tablet PO (06:15)
[2024-01-15] MEDS: donepezil 5 MG Tablet PO (08:48)
[2024-01-15] MEDS: hyDROXYzine 25 mg Capsule PO ×3 (08:48→20:16)
[2024-01-15] MEDS: aspirin 81 mg EC Tablet PO (08:48)
[2024-01-15] MEDS: isosorbide mononitrate 20 mg Tablet 10 MG PO ×2 (08:48→17:53)
[2024-01-15] MEDS: buPROPion XL (24 HR) 150 mg Tablet PO (08:48)
[2024-01-15] MEDS: pantoprazole DR 40 mg Tablet PO (08:48)
[2024-01-15] MEDS: duloxetine 60 mg Capsule PO ×2 (08:48→17:53)
[2024-01-15] MEDS: dicyclomine 10 mg Capsule PO ×3 (08:48→20:16)
[2024-01-15] MEDS: tamsulosin 0.4 mg Capsule 0.400000000000000022 MG PO (08:48)
[2024-01-15 13:56] VITALS: BP 121/72; PULSE 97; RESP 16; TEMP 37.2; O2SAT 97
--- NOTE | 2024-01-15 17:43 | P.NPUPN_ITS ---
Subjective NPU 2 Subjective: Patient presented today reporting that he is doing okay. He continues to be solely focused on discharge and when that might happen. He continues to downplay the facts of the situation including guardianship. We discussed the importance of him taking his medication and making sure that he is eating and taking care of himself which he endorses he would. He denied any side effects to his medications. Mental Status Exam 2 MSE Comments: This is a slender white male in hospital scrubs looking older than his stated age with limited grooming and eye contact. No abnormal movements except for psychomotor retardation. More cooperative with exam in mild to moderate distress. Speech was normal to increased rate and decreased volume usually. Mood described as I want to leave, affect confused. Thought process linear but occasionally disorganized. Thought content: Patient denied suicidal or homicidal ideation, there were no delusions reported but some paranoia or persecutory thinking noted, he denied visual hallucinations but did endorse some auditory hallucinations and did not appear at times to be attending to internal stimuli. Attention and concentration were limited and memory was unreliable but none were formally tested. He is alert and oriented x [address] Insight, judgment and impulse control are impaired. 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 insulin use: without senior care use Diabetes mellitus complication status: without complication Qualified Code(s): E11.9 - Type 2 diabetes mellitus without complications (4) Hypothyroid: Qualifiers: Hypothyroidism type: unspecified Qualified Code(s): E03.9 - Hypothyroidism, unspecified (5) Agitation: (6) Hallucinations: (7) Major depressive disorder, recurrent, mild: (8) On combination antipsychotic drug therapy: (9) Schizophrenia: Plan This is a 63-year-old male who presented to the emergency department with reports from his guardian of increased bizarre behavior and hallucinations known from a past hospitalization with similar symptoms. 1. Continue current medications. Identify if he has been consistent with the medications he was discharged on and appeared to stabilize him during his last stay. Make sure he is on long-acting injectable so that daily medications are less challenging. 2. Encourage individual group and milieu therapy. 3. continue 15-minute med checks for safety. 4. Get collateral information from daughter/family/guardian. 5. Consider hospitalist consult for concerns about his complicated medical presentation last hospitalization. Involuntary Hold Information 2 96 Hour Hold: 96 Hour Involuntary Admission: Yes Attestations NPU 2 Medical Necessity Statement*: Inpatient hospitalization is medically necessary and the clinically appropriate intervention at this time. We will monitor medications and make changes as indicated. Patient will be in the hospital for over two midnights. Likely length of stay 7-10 days. Coding Level of Care Code Acute Code for g Fwd Diagnoses Acute psychosis F23 Noncompliance with medication regimen Z91.148 Type 2 diabetes mellitus without complication, without long-term current use of insulin E11.9 Diabetes mellitus type: type 2 Diabetes mellitus superintendent container terminal insulin use: without superintendent container terminal use Diabetes mellitus complication status: without complication Hypothyroidism, unspecified type E03.9 Hypothyroidism type: unspecified Agitation R45.1 Hallucinations R44.3 Major depressive disorder, recurrent, mild F33.0 On combination antipsychotic drug therapy Z79.899 Schizophrenia F20.9
[2024-01-15] MEDS: atorvastatin 40 mg Tablet PO (17:53)
[2024-01-15] MEDS: cetirizine 10 mg Tablet PO (20:15)
[2024-01-15] MEDS: CLONazepam 1 mg Tablet PO (20:15)
[2024-01-15] MEDS: ziprasidone hcl 40 mg Capsule 80 MG PO (20:16)
[2024-01-15] MEDS: trazodone 100 mg Tablet PO (20:16)
[2024-01-15 21:34] VITALS: BP 139/90; PULSE 101; RESP 18; TEMP 36.5; O2SAT 98
[2024-01-16] MEDS: levothyroxine 88 mcg Tablet PO (05:55)
[2024-01-16 06:00] VITALS: BP 115/76; PULSE 84; RESP 18; TEMP 37; O2SAT 96
[2024-01-16] MEDS: acetaminophen 325 mg Tablet 650 MG PO (07:49)
[2024-01-16] MEDS: aspirin 81 mg EC Tablet PO (07:50)
[2024-01-16] MEDS: dicyclomine 10 mg Capsule PO ×3 (07:50→21:09)
[2024-01-16] MEDS: donepezil 5 MG Tablet PO (07:50)
[2024-01-16] MEDS: hyDROXYzine 25 mg Capsule PO ×3 (07:50→21:10)
[2024-01-16] MEDS: tamsulosin 0.4 mg Capsule 0.400000000000000022 MG PO (07:50)
[2024-01-16] MEDS: isosorbide mononitrate 20 mg Tablet 10 MG PO ×2 (07:50→17:17)
[2024-01-16] MEDS: DOCUSATE SODIUM 100 MG/10 ML UDC 60 MG PO (07:51)
[2024-01-16] MEDS: buPROPion XL (24 HR) 150 mg Tablet PO (07:51)
[2024-01-16] MEDS: duloxetine 60 mg Capsule PO ×2 (07:51→17:18)
[2024-01-16] MEDS: pantoprazole DR 40 mg Tablet PO (07:51)
--- NOTE | 2024-01-16 08:17 | PC.NURSE ---
IN ROOM SITTING ON BED. DENIES SI/HI AND AVH AT THIS TIME. RATES PAIN IN ARMS 4/10, TYLENOL GIVEN 650 MG ORDERED FOR PAIN. RATES ANXIETY 0/10 AND DEPRESSION 2/10. GOAL FOR THE DAY IS TO GET BETTER AND GET OUT OF HERE. PT IS NOTED TO HAVE A FLAT AFFECT AND GUARDED WITH STAFF. ALL QUESTIONS ANSWERED AND SUPPORT VOICED.
--- NOTE | 2024-01-16 12:03 | P.NPUPN_ITS ---
Subjective NPU 2 Subjective: Patient presented today reporting that he is doing all right. He was much less agitated per staff reports and direct observation. He was very pleasant as he talked about hoping to return to his home soon. We talked about concerns that he is not getting his medications at home given that he seems to be doing much better with his standing home medications. We discussed consideration of a long-acting injectable and that we would talk to his guardian about that. He denied any side effects to his medications. Mental Status Exam 2 MSE Comments: This is a slender white male in hospital scrubs looking older than his stated age with limited grooming and eye contact. No abnormal movements except for psychomotor retardation. More cooperative with exam in mild distress. Speech was normal to increased rate and decreased volume usually. Mood described as okay/maybe a little better, affect more calm. Thought process linear but occasionally disorganized. Thought content: Patient denied suicidal or homicidal ideation, there were no delusions reported but some paranoia or persecutory thinking noted, he denied visual hallucinations but did endorse some auditory hallucinations and did not appear at times to be attending to internal stimuli. Attention and concentration were limited and memory was unreliable but none were formally tested. He is alert and oriented x [address] Insight, judgment and impulse control are impaired. Vitals/I&O/Wt Last Vital Signs Temp 98.6 F 01/16/24 06:00 Pulse 84 01/16/24 06:00 Resp 18 01/16/24 06:00 BP 115/76 01/16/24 06:00 Pulse Ox 96 01/16/24 06:00 O2 Del Method Room Air 01/15/24 13:56 Data NPU 01/13/24 16:47 01/13/24 16:47 A&P Assessment and plan (1) Acute psychosis: (2) Noncompliance with medication regimen: (3) Diabetes: Qualifiers: Diabetes mellitus type: type 2 Diabetes mellitus shelter insulin use: without shelter use Diabetes mellitus complication status: without complication Qualified Code(s): E11.9 - Type 2 diabetes mellitus without complications (4) Hypothyroid: Qualifiers: Hypothyroidism type: unspecified Qualified Code(s): E03.9 - Hypothyroidism, unspecified (5) Agitation: (6) Hallucinations: (7) Major depressive disorder, recurrent, mild: (8) On combination antipsychotic drug therapy: (9) Schizophrenia: Plan This is a 63-year-old male who presented to the emergency department with reports from his guardian of increased bizarre behavior and hallucinations known from a past hospitalization with similar symptoms. 1. Continue current medications. Identify if he has been consistent with the medications he was discharged on and appeared to stabilize him during his last stay. Talk to guardian about him being on a long-acting injectable so that daily medications are less challenging. 2. Encourage individual group and milieu therapy. 3. continue 15-minute med checks for safety. 4. Get collateral information from daughter/family/guardian. 5. Consider hospitalist consult for concerns about his complicated medical presentation last hospitalization. Involuntary Hold Information 2 96 Hour Hold: 96 Hour Involuntary Admission: Yes Attestations NPU 2 Medical Necessity Statement*: Inpatient hospitalization is medically necessary and the clinically appropriate intervention at this time. We will monitor medications and make changes as indicated. Likely length of stay 7-10 days. 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
--- NOTE | 2024-01-16 12:31 | PC.NURSE ---
PT REFUSING TO BE DRESSED OUT. STATES I WILL GO TO LONGTERM BEFORE YOU TOUCH ME. PT ATTEMPTED TO ELOPE FROM UNIT. PT ESCORTED BACK TO ROOM BY SECURITY. SECURITY REMOVED ALL PATIENT BELONGINGS FROM ROOM. PT REFUSED TO BE DRESSED OUT WITH SECURITY. PT DENYING SI/HI.
[2024-01-16] MEDS: OLANZapine 5 mg ODT PO (13:06)
[2024-01-16 14:00] VITALS: BP 120/70; PULSE 82; RESP 14; TEMP 36.4; O2SAT 100
[2024-01-16] MEDS: atorvastatin 40 mg Tablet PO (17:18)
[2024-01-16 20:49] VITALS: BP 104/65; PULSE 100; RESP 17; TEMP 36.6; O2SAT 98
[2024-01-16] MEDS: trazodone 100 mg Tablet PO (21:09)
[2024-01-16] MEDS: ziprasidone hcl 40 mg Capsule 80 MG PO (21:09)
[2024-01-16] MEDS: CLONazepam 1 mg Tablet PO (21:09)
[2024-01-16] MEDS: cetirizine 10 mg Tablet PO (21:09)
[2024-01-17 06:00] VITALS: BP 121/76; PULSE 119; RESP 18; TEMP 36.9; O2SAT 97
[2024-01-17] MEDS: levothyroxine 88 mcg Tablet PO (06:06)
[2024-01-17] MEDS: tamsulosin 0.4 mg Capsule 0.400000000000000022 MG PO (08:08)
[2024-01-17] MEDS: isosorbide mononitrate 20 mg Tablet 10 MG PO ×2 (08:08→17:17)
[2024-01-17] MEDS: OLANZapine 5 mg ODT PO (08:08)
[2024-01-17] MEDS: hyDROXYzine 25 mg Capsule PO ×3 (08:08→21:22)
[2024-01-17] MEDS: dicyclomine 10 mg Capsule PO ×3 (08:08→21:22)
[2024-01-17] MEDS: donepezil 5 MG Tablet PO (08:08)
[2024-01-17] MEDS: duloxetine 60 mg Capsule PO ×2 (08:08→17:17)
[2024-01-17] MEDS: aspirin 81 mg EC Tablet PO (08:08)
[2024-01-17] MEDS: buPROPion XL (24 HR) 150 mg Tablet PO (08:08)
[2024-01-17] MEDS: pantoprazole DR 40 mg Tablet PO (08:08)
--- NOTE | 2024-01-17 08:26 | PC.NURSE ---
UP IN ROOM. PT APPEARS ANXIOUS THIS AM WITH DEPRESSED MOOD. DENIES PAIN. DENIES SI/HI AND AVH AT THIS TIME. RATES ANXIETY /10 AND DEPRESSION /10. PT STATES HIS GOAL FOR THE DAY IS TO LEAVE AND GET OUT OF HERE. RN EXPLAINED TO PT THAT HE WILL NOT BE READY FOR DISCHARGE UNTIL AFTER THE HOLIDAY ON SATURDAY AND MAYBE LEAVE ON SATURDAY. FLAT AFFECT IS NOTED. PT REMAINS CONFUSED AT TIMES BUT IS ABLE TO BE REDIRECTED. ALL QUESTIONS ANSWERED AND SUPPORT WAS VOICED.
[2024-01-17 11:34] LABS: Bilirubin Urine Neg (Negative); Blood Urine Neg (Negative); Glucose Urine UA Norm (Normal); Ketones Urine Negative (Negative); Leukocyte Esterase Urine Negative (Negative); Nitrate Urine Negative (Negative); Protein Urine Neg (Negative); Urine Appearance Clear (CLEAR); Urine Color Yellow (Yellow); Urobilinogen Urine Norm (Negative); pH Urine 7 (5-7)
[2024-01-17 11:35] LABS: Add Urine Culture? No
[2024-01-17 11:38] LABS: Amphetamines Screen Urine Negative (Negative); Barbiturates Screen Urine Negative (Negative); Benzodiazepines Screen Urine Negative (Negative); Cocaine Screen Urine Negative (Negative); Opiate Screen Urine Negative (Negative); PCP Screen Urine Negative (Negative); THC Screen Urine Negative (Negative)
--- NOTE | 2024-01-17 13:12 | P.NPUPN_ITS ---
Subjective NPU 2 Subjective: Patient presented today reporting that he is doing okay. We discussed whether or not he had been taking his medication as prescribed but he continues to be a limited historian. He continues to be pleasant on the unit per staff reports and direct observation. He denied any side effects from the medications. Mental Status Exam 2 MSE Comments: This is a slender white male in hospital scrubs looking older than his stated age with limited grooming and eye contact. No abnormal movements except for psychomotor retardation. More cooperative with exam in mild distress. Speech was normal to increased rate and decreased volume usually. Mood described as maybe a little better, affect more calm. Thought process linear but occasionally disorganized. Thought content: Patient denied suicidal or homicidal ideation, there were no delusions reported but some paranoia or persecutory thinking noted, he denied visual hallucinations but did endorse some auditory hallucinations and did not appear at times to be attending to internal stimuli. Attention and concentration were limited and memory was unreliable but none were formally tested. He is alert and oriented x [address] Insight, judgment and impulse control are improving. Vitals/I&O/Wt Last Vital Signs Temp 98.4 F 01/17/24 06:00 Pulse 119 H 01/17/24 06:00 Resp 18 01/17/24 06:00 BP 121/76 01/17/24 06:00 Pulse Ox 97 01/17/24 06:00 O2 Del Method Room Air 01/16/24 14:00 Data NPU 01/13/24 16:47 01/13/24 16:47 A&P Assessment and plan (1) Acute psychosis: (2) Noncompliance with medication regimen: (3) Diabetes: Qualifiers: Diabetes mellitus type: type 2 Diabetes mellitus correction insulin use: without correction use Diabetes mellitus complication status: without complication Qualified Code(s): E11.9 - Type 2 diabetes mellitus without complications (4) Hypothyroid: Qualifiers: Hypothyroidism type: unspecified Qualified Code(s): E03.9 - Hypothyroidism, unspecified (5) Agitation: (6) Hallucinations: (7) Major depressive disorder, recurrent, mild: (8) On combination antipsychotic drug therapy: (9) Schizophrenia: Plan This is a 63-year-old male who presented to the emergency department with reports from his guardian of increased bizarre behavior and hallucinations known from a past hospitalization with similar symptoms. 1. Continue current medications. Identify if he has been consistent with the medications he was discharged on and appeared to stabilize him during his last stay. Talk to guardian about him being on a long-acting injectable so that daily medications are less challenging. Patient seems to be improving based on getting his regular medication during this stay. 2. Encourage individual group and milieu therapy. 3. continue 15-minute med checks for safety. 4. Get collateral information from daughter/family/guardian. 5. Consider hospitalist consult for concerns about his complicated medical presentation last hospitalization. Involuntary Hold Information 2 96 Hour Hold: 96 Hour Involuntary Admission: Yes Attestations NPU 2 Medical Necessity Statement*: Inpatient hospitalization is medically necessary and the clinically appropriate intervention at this time. We will monitor medications and make changes as indicated. Likely length of stay 6-9 days. Coding Level of Care Code Acute Code for [facility] Fwd Diagnoses Acute psychosis F23 Noncompliance with medication regimen Z91.148 Type 2 diabetes mellitus without complication, without long-term current use of insulin E11.9 Diabetes mellitus type: type 2 Diabetes mellitus manager terminal insulin use: without manager terminal use Diabetes mellitus complication status: without complication Hypothyroidism, unspecified type E03.9 Hypothyroidism type: unspecified Agitation R45.1 Hallucinations R44.3 Major depressive disorder, recurrent, mild F33.0 On combination antipsychotic drug therapy Z79.899 Schizophrenia F20.9
[2024-01-17 14:00] VITALS: BP 122/77; PULSE 92; RESP 20; TEMP 36.6; O2SAT 98
[2024-01-17] MEDS: atorvastatin 40 mg Tablet PO (17:17)
[2024-01-17 19:17] VITALS: BP 106/62; PULSE 99; RESP 18; TEMP 36.6; O2SAT 97
[2024-01-17] MEDS: CLONazepam 1 mg Tablet PO (21:22)
[2024-01-17] MEDS: trazodone 100 mg Tablet PO (21:22)
[2024-01-17] MEDS: cetirizine 10 mg Tablet PO (21:22)
[2024-01-17] MEDS: ziprasidone hcl 40 mg Capsule 80 MG PO (21:23)
[2024-01-18 06:00] VITALS: BP 116/78; PULSE 107; RESP 17; TEMP 36.6; O2SAT 98
[2024-01-18] MEDS: levothyroxine 88 mcg Tablet PO (06:29)
--- NOTE | 2024-01-18 08:16 | P.NPUPN_ITS ---
Subjective NPU 2 Subjective: Patient presented today reporting that he is doing fine. He continues to deny having any medication denied any of the issues that has been present on admission. He could not verify whether there had been regular missed doses and that is what led to his presentation. However reports that he has been pleasant and nonproblematic per staff and direct observation. He denies any side effects to the medication. Mental Status Exam 2 MSE Comments: This is a slender white male in hospital scrubs looking older than his stated age with limited grooming and eye contact. No abnormal movements except for psychomotor retardation. More cooperative with exam in mild distress. Speech was normal to increased rate and decreased volume usually. Mood described as maybe a little better, affect more calm. Thought process linear but occasionally disorganized. Thought content: Patient denied suicidal or homicidal ideation, there were no delusions reported but some paranoia or persecutory thinking noted, he denied visual hallucinations but did endorse some auditory hallucinations and did not appear at times to be attending to internal stimuli. Attention and concentration were limited and memory was unreliable but none were formally tested. He is alert and oriented x [address] Insight, judgment and impulse control are improving. Vitals/I&O/Wt Last Vital Signs Temp 97.9 F 01/18/24 06:00 Pulse 107 H 01/18/24 06:00 Resp 17 01/18/24 06:00 BP 116/78 01/18/24 06:00 Pulse Ox 98 01/18/24 06:00 O2 Del Method Room Air 01/18/24 06:00 Data NPU 01/13/24 16:47 01/13/24 16:47 A&P Assessment and plan (1) Acute psychosis: (2) Noncompliance with medication regimen: (3) Diabetes: Qualifiers: Diabetes mellitus type: type 2 Diabetes mellitus ferry terminal agent insulin use: without retirement use Diabetes mellitus complication status: without complication Qualified Code(s): E11.9 - Type 2 diabetes mellitus without complications (4) Hypothyroid: Qualifiers: Hypothyroidism type: unspecified Qualified Code(s): E03.9 - Hypothyroidism, unspecified (5) Agitation: (6) Hallucinations: (7) Major depressive disorder, recurrent, mild: (8) On combination antipsychotic drug therapy: (9) Schizophrenia: Plan This is a 63-year-old male who presented to the emergency department with reports from his guardian of increased bizarre behavior and hallucinations known from a past hospitalization with similar symptoms. 1. Continue current medications. Identify if he has been consistent with the medications he was discharged on and appeared to stabilize him during his last stay. Talk to guardian about him being on a long-acting injectable so that daily medications are less challenging. Patient seems to be improving based on getting his regular medication during this stay. 2. Encourage individual group and milieu therapy. 3. continue 15-minute med checks for safety. 4. Get collateral information from daughter/family/guardian. 5. Consider hospitalist consult for concerns about his complicated medical presentation last hospitalization. Involuntary Hold Information 2 96 Hour Hold: 96 Hour Involuntary Admission: Yes Attestations NPU 2 Medical Necessity Statement*: Inpatient hospitalization is medically necessary and the clinically appropriate intervention at this time. We will monitor medications and make changes as indicated. Likely length of stay 5-8 days. Coding Level of Care Code Acute Code for [facility] Fwd Diagnoses Acute psychosis F23 Noncompliance with medication regimen Z91.148 Type 2 diabetes mellitus without complication, without long-term current use of insulin E11.9 Diabetes mellitus type: type 2 Diabetes mellitus ferry terminal agent insulin use: without retirement use Diabetes mellitus complication status: without complication Hypothyroidism, unspecified type E03.9 Hypothyroidism type: unspecified Agitation R45.1 Hallucinations R44.3 Major depressive disorder, recurrent, mild F33.0 On combination antipsychotic drug therapy Z79.899 Schizophrenia F20.9
[2024-01-18] MEDS: DOCUSATE SODIUM 100 MG/10 ML UDC 60 MG PO ×2 (08:49→18:01)
[2024-01-18] MEDS: buPROPion XL (24 HR) 150 mg Tablet PO (08:50)
[2024-01-18] MEDS: tamsulosin 0.4 mg Capsule 0.400000000000000022 MG PO (08:50)
[2024-01-18] MEDS: donepezil 5 MG Tablet PO (08:50)
[2024-01-18] MEDS: pantoprazole DR 40 mg Tablet PO (08:50)
[2024-01-18] MEDS: duloxetine 60 mg Capsule PO ×2 (08:50→18:03)
[2024-01-18] MEDS: dicyclomine 10 mg Capsule PO ×3 (08:50→20:01)
[2024-01-18] MEDS: aspirin 81 mg EC Tablet PO (08:50)
[2024-01-18] MEDS: hyDROXYzine 25 mg Capsule PO ×3 (08:50→20:01)
[2024-01-18] MEDS: isosorbide mononitrate 20 mg Tablet 10 MG PO ×2 (08:50→18:02)
[2024-01-18] MEDS: OLANZapine 5 mg ODT PO (12:44)
--- NOTE | 2024-01-18 12:44 | PC.NURSE ---
PT REQUESTED MEDICATIONS FOR SCHIZOPHRENIA. STATES THAT HE JUST STARTED HEARING VOICES. PT RECEIVED PRN OLANZAPINE 5MG PO FOR PSYCHOSIS.
[2024-01-18 13:39] VITALS: PULSE 104; RESP 16; O2SAT 99
[2024-01-18 14:00] VITALS: BP 113/74; PULSE 84; RESP 20; TEMP 36.3; O2SAT 98
[2024-01-18] MEDS: haloperidol 5 mg Tablet PO (14:16)
[2024-01-18] MEDS: benztropine 1 mg Tablet PO (14:16)
--- NOTE | 2024-01-18 14:29 | PC.NURSE ---
UPON REASSESSMENT OF OLANZAPINE 5MG PRN ADMINISTRATION PT STATES THAT HE IS STILL HEARING VOICES. PT REQUESTS ADDITIONAL PRN MEDICATION FOR ASSISTANCE. THIS NURSE GAVE PT PRN HALDOL 5MG PO PER ORDER INSTRUCTIONS. PT CURRENT NEEDS ARE MET AT THIS TIME.
[2024-01-18] MEDS: atorvastatin 40 mg Tablet PO (18:02)
--- NOTE | 2024-01-18 18:40 | PC.NURSE ---
RANDOM ROOM CHECK PERFORMED BY STAFF. PT WAS COOPERATIVE. NO CONTRABAND FOUND IN ROOM.
[2024-01-18 19:41] VITALS: BP 117/77; PULSE 86; RESP 17; TEMP 36.5; O2SAT 98
[2024-01-18] MEDS: trazodone 100 mg Tablet PO (20:00)
[2024-01-18] MEDS: cetirizine 10 mg Tablet PO (20:00)
[2024-01-18] MEDS: CLONazepam 1 mg Tablet PO (20:01)
[2024-01-18] MEDS: ziprasidone hcl 40 mg Capsule 80 MG PO (20:01)
[2024-01-19 06:00] VITALS: BP 116/73; PULSE 80; RESP 16; TEMP 36.6; O2SAT 98
[2024-01-19] MEDS: levothyroxine 88 mcg Tablet PO (06:31)
[2024-01-19] MEDS: DOCUSATE SODIUM 100 MG/10 ML UDC 60 MG PO ×2 (08:26→17:52)
[2024-01-19] MEDS: duloxetine 60 mg Capsule PO ×2 (08:28→17:54)
[2024-01-19] MEDS: buPROPion XL (24 HR) 150 mg Tablet PO (08:28)
[2024-01-19] MEDS: dicyclomine 10 mg Capsule PO ×3 (08:28→20:30)
[2024-01-19] MEDS: tamsulosin 0.4 mg Capsule 0.400000000000000022 MG PO (08:28)
[2024-01-19] MEDS: donepezil 5 MG Tablet PO (08:28)
[2024-01-19] MEDS: aspirin 81 mg EC Tablet PO (08:28)
[2024-01-19] MEDS: isosorbide mononitrate 20 mg Tablet 10 MG PO ×2 (08:28→17:54)
[2024-01-19] MEDS: pantoprazole DR 40 mg Tablet PO (08:28)
[2024-01-19] MEDS: hyDROXYzine 25 mg Capsule PO ×3 (08:30→20:30)
--- NOTE | 2024-01-19 11:47 | P.NPUPN_ITS ---
Subjective NPU 2 Subjective: Patient presented today reporting that he is doing fine. We discussed having a conversation with his guardian about his medications and reviewing his [facility] documentation it appears his next injection is due 01/24/2024. He is taking the Invega Sustenna 234 mg IM q. 28 days. He is also taking some oral medication in the days prior to his monthly injection as needed. He has been pleasant and not problematic per staff reports and direct observation. He denies any side effects of the medication. Mental Status Exam 2 MSE Comments: This is a slender white male in hospital scrubs looking older than his stated age with limited grooming and eye contact. No abnormal movements except for psychomotor retardation. More cooperative with exam in mild distress. Speech was normal to increased rate and decreased volume usually. Mood described as maybe a little better, affect more calm. Thought process linear but occasionally disorganized. Thought content: Patient denied suicidal or homicidal ideation, there were no delusions reported but some paranoia or persecutory thinking noted, he denied visual hallucinations but did endorse some auditory hallucinations and did not appear at times to be attending to internal stimuli. Attention and concentration were limited and memory was unreliable but none were formally tested. He is alert and oriented x [address] Insight, judgment and impulse control are improving. 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 insulin use: without usp use Diabetes mellitus type: t ype 2 Qualified Code(s): E11.9 - Type 2 diabetes mellitus without complications (4) Hypothyroid: Qualifiers: Hypothyroidism type: unspecified Qualified Code(s): E03.9 - Hypothyroidism, unspecified (5) Agitation: (6) Hallucinations: (7) Major depressive disorder, recurrent, mild: (8) On combination antipsychotic drug therapy: (9) Schizophrenia: Plan This is a 63-year-old male who presented to the emergency department with reports from his guardian of increased bizarre behavior and hallucinations known from a past hospitalization with similar symptoms. 1. Continue current medications. Identify if he has been consistent with the medications he was discharged on and appeared to stabilize him during his last stay. Talk to guardian about him being on a long-acting injectable so that daily medications are less challenging. Patient seems to be improving based on getting his regular medication during this stay. 2. Encourage individual group and milieu therapy. 3. continue 15-minute med checks for safety. 4. Get collateral information from daughter/family/guardian. 5. Consider hospitalist consult for concerns about his complicated medical presentation last hospitalization. Involuntary Hold Information 2 96 Hour Hold: 96 Hour Involuntary Admission: Yes Attestations NPU 2 Medical Necessity Statement*: Inpatient hospitalization is medically necessary and the clinically appropriate intervention at this time. We will monitor medications and make changes as indicated. Likely length of stay 5-8 days. Coding Level of Care Code Acute Code for [facility] Fwd Diagnoses Acute psychosis F23 Noncompliance with medication regimen Z91.148 Type 2 diabetes mellitus without complication, without long-term current use of insulin E11.9 Diabetes mellitus complication status: without complication Diabetes mellitus intermodal owner operator truck driver insulin use: without intermodal owner operator truck driver use Diabetes mellitus type: type 2 Hypothyroidism, unspecified type E03.9 Hypothyroidism type: unspecified Agitation R45.1 Hallucinations R44.3 Major depressive disorder, recurrent, mild F33.0 On combination antipsychotic drug therapy Z79.899 Schizophrenia F20.9
--- NOTE | 2024-01-19 12:08 | PC.NURSE ---
PT GUARDIAN URIEL JACKSON SPOKE WITH THIS NURSE ABOUT CONCERNS OF PT HALLUCINATIONS. GUARDIAN EXPLAINED THAT PT NEXT INVEGA 234 INJECTION WAS DUE 01/24/24. GUARDIAN ALSO EXPLAINED THAT PT HAS A PRESCRIPTION FOR PRN INVEGA 6MG PO FOR USE 10 DAYS PRIOR TO NEXT INJECTION FOR HALLUCINATIONS. PHYSICIAN NOTIFIED. NEW ORDERS FOR INVEGA 6MG PO DAILY AND SCHEDULED NEXT INJECTION TO BE GIVEN 01/24/24 OR ON DAY OF DISCHARGE.
[2024-01-19] MEDS: paliperidone ER 6 mg Tablet PO (12:20)
[2024-01-19] MEDS: polyethylene glycol 3350 Pkt 17 gm PO (13:05)
[2024-01-19] MEDS: acetaminophen 325 mg Tablet 650 MG PO (13:05)
--- NOTE | 2024-01-19 13:07 | PC.NURSE ---
PT REQUESTED PAIN MEDICATION. THIS NURSE ADMINISTERED TYLENOL 650MG PRN PO FOR HIS R ARM PAIN. RATED A 7/10 ON A 0-10 SCALE WHERE 0 IS NONE AND 10 IS THE WORST POSSIBLE. PT STILL HAS NOT HAD A BOWEL MOVEMENT, THIS NURSE ADMINISTERED PRN 17 GM MIRALAX TO ATTEMPT TO RELIEVE PT CONSTIPATION. PT VERBALIZED AGREEMENT TO LET STAFF KNOW IF HE HAS A BOWEL MOVEMENT.
[2024-01-19 14:00] VITALS: BP 110/71; PULSE 81; RESP 20; TEMP 36.6; O2SAT 98
[2024-01-19] MEDS: OLANZapine 5 mg ODT PO ×2 (16:50→21:08)
--- NOTE | 2024-01-19 17:36 | PC.NURSE ---
RANDOM ROOM CHECK PERFORMED BY STAFF. PT WAS COOPERATIVE. NO CONTRABAND FOUND IN ROOM.
[2024-01-19] MEDS: atorvastatin 40 mg Tablet PO (17:54)
[2024-01-19] MEDS: cetirizine 10 mg Tablet PO (20:30)
[2024-01-19] MEDS: ziprasidone hcl 40 mg Capsule 80 MG PO (20:30)
[2024-01-19] MEDS: trazodone 100 mg Tablet PO (20:30)
[2024-01-19] MEDS: CLONazepam 1 mg Tablet PO (20:30)
[2024-01-19 20:47] VITALS: BP 119/75; PULSE 80; RESP 16; TEMP 36.3; O2SAT 99
[2024-01-20 06:00] VITALS: BP 119/78; PULSE 97; RESP 17; TEMP 36.7; O2SAT 99
[2024-01-20] MEDS: levothyroxine 88 mcg Tablet PO (06:42)
[2024-01-20] MEDS: buPROPion XL (24 HR) 150 mg Tablet PO (08:08)
[2024-01-20] MEDS: isosorbide mononitrate 20 mg Tablet 10 MG PO ×2 (08:08→17:22)
[2024-01-20] MEDS: donepezil 5 MG Tablet PO (08:09)
[2024-01-20] MEDS: tamsulosin 0.4 mg Capsule 0.400000000000000022 MG PO (08:09)
[2024-01-20] MEDS: DOCUSATE SODIUM 100 MG/10 ML UDC 60 MG PO ×2 (08:09→17:23)
[2024-01-20] MEDS: paliperidone ER 6 mg Tablet PO (08:09)
[2024-01-20] MEDS: hyDROXYzine 25 mg Capsule PO ×3 (08:09→20:13)
[2024-01-20] MEDS: pantoprazole DR 40 mg Tablet PO (08:09)
[2024-01-20] MEDS: duloxetine 60 mg Capsule PO ×2 (08:09→17:23)
[2024-01-20] MEDS: aspirin 81 mg EC Tablet PO (08:09)
[2024-01-20] MEDS: dicyclomine 10 mg Capsule PO ×3 (08:09→20:13)
--- NOTE | 2024-01-20 08:37 | PC.NURSE ---
PT UP IN DAY ROOM DRINKING COFFEE. DENIES SI/HI AND AVH AT THIS TIME. DENIES PAIN. RATES ANXIETY 1/10 AND DEPRESSION 0/10. PT STATES HIS GOAL IS BE HAPPY TODAY. PT IS NOTED TO HAVE AN UPBEAT AND POSITIVE MOOD THIS AM. ALL QUESTIONS ANSWERED AND SUPPORT VOICED.
--- NOTE | 2024-01-20 11:38 | P.NPUPN_ITS ---
Subjective NPU 2 Subjective: Patient presented today reporting that he is doing okay. He continued to be pleasant per staff reports and direct observation. He reports that the medications are working fine and was much more positive and appreciative about identifying his challenges and reported psychosis and asking for medications to help. He denied any side effects of the medications and endorsed an openness to placement and working with the social work team to that end. Mental Status Exam 2 MSE Comments: This is a slender white male in hospital scrubs looking older than his stated age with limited grooming and eye contact. No abnormal movements except for psychomotor retardation. More cooperative with exam in mild distress. Speech was normal to increased rate and decreased volume usually. Mood described as maybe a little better, affect more calm. Thought process linear but occasionally disorganized. Thought content: Patient denied suicidal or homicidal ideation, there were no delusions reported but some paranoia or persecutory thinking noted, he denied visual hallucinations but did endorse some auditory hallucinations and did not appear at times to be attending to internal stimuli. Attention and concentration were limited and memory was unreliable but none were formally tested. He is alert and oriented x [address] Insight, judgment and impulse control are improving. Vitals/I&O/Wt Last Vital Signs Temp 98.0 F 01/20/24 06:00 Pulse 97 01/20/24 06:00 Resp 17 01/20/24 06:00 BP 119/78 01/20/24 06:00 Pulse Ox 99 01/20/24 06:00 O2 Del Method Room Air 01/20/24 06:00 Weight last 48 hrs Weight 65.487 kg Data NPU 01/13/24 16:47 01/13/24 16:47 A&P Assessment and plan (1) Acute psychosis: (2) Noncompliance with medication regimen: (3) Diabetes: Qualifiers: Diabetes mellitus type: type 2 Diabetes mellitus oysterman insulin use: without intermediate use Diabetes mellitus complication status: without complication Qualified Code(s): E11.9 - Type 2 diabetes mellitus without complications (4) Hypothyroid: Qualifiers: Hypothyroidism type: unspecified Qualified Code(s): E03.9 - Hypothyroidism, unspecified (5) Agitation: (6) Hallucinations: (7) Major depressive disorder, recurrent, mild: (8) On combination antipsychotic drug therapy: (9) Schizophrenia: Plan This is a 63-year-old male who presented to the emergency department with reports from his guardian of increased bizarre behavior and hallucinations known from a past hospitalization with similar symptoms. 1. Continue current medications. Identify if he has been consistent with the medications he was discharged on and appeared to stabilize him during his last stay. Talk to guardian about him being on a long-acting injectable so that daily medications are less challenging. Patient seems to be improving based on getting his regular medication during this stay. 2. Encourage individual group and milieu therapy. 3. continue 15-minute med checks for safety. 4. Get collateral information from daughter/family/guardian. 5. Consider hospitalist consult for concerns about his complicated medical presentation last hospitalization. Involuntary Hold Information 2 96 Hour Hold: 96 Hour Involuntary Admission: Yes Attestations NPU 2 Medical Necessity Statement*: Inpatient hospitalization is medically necessary and the clinically appropriate intervention at this time. We will monitor medications and make changes as indicated. Likely length of stay 4-7 days. Coding Level of Care Code Acute Code for [facility] Fwd Diagnoses Acute psychosis F23 Noncompliance with medication regimen Z91.148 Type 2 diabetes mellitus without complication, without long-term current use of insulin E11.9 Diabetes mellitus type: type 2 Diabetes mellitus intermediate insulin use: without intermediate use Diabetes mellitus complication status: without complication Hypothyroidism, unspecified type E03.9 Hypothyroidism type: unspecified Agitation R45.1 Hallucinations R44.3 Major depressive disorder, recurrent, mild F33.0 On combination antipsychotic drug therapy Z79.899 Schizophrenia F20.9
[2024-01-20] MEDS: OLANZapine 5 mg ODT PO (12:16)
[2024-01-20 14:00] VITALS: BP 107/68; PULSE 90; RESP 16; TEMP 37.2; O2SAT 97
[2024-01-20] MEDS: atorvastatin 40 mg Tablet PO (17:23)
[2024-01-20] MEDS: nicotine 4 mg lozenge MUCOUS MEM (18:32)
[2024-01-20 19:48] VITALS: BP 111/74; PULSE 81; RESP 17; TEMP 36.6; O2SAT 99
[2024-01-20] MEDS: cetirizine 10 mg Tablet PO (20:13)
[2024-01-20] MEDS: CLONazepam 1 mg Tablet PO (20:13)
[2024-01-20] MEDS: trazodone 100 mg Tablet PO (20:13)
[2024-01-20] MEDS: ziprasidone hcl 40 mg Capsule 80 MG PO (20:13)
[2024-01-20] MEDS: ibuprofen 600 mg Tablet PO (21:28)
[2024-01-21 06:00] VITALS: BP 113/74; PULSE 76; RESP 16; O2SAT 98
[2024-01-21] MEDS: hyDROXYzine 25 mg Capsule PO ×3 (07:53→20:10)
[2024-01-21] MEDS: paliperidone ER 6 mg Tablet PO (07:53)
[2024-01-21] MEDS: isosorbide mononitrate 20 mg Tablet 10 MG PO ×2 (07:53→17:13)
[2024-01-21] MEDS: buPROPion XL (24 HR) 150 mg Tablet PO (07:54)
[2024-01-21] MEDS: levothyroxine 88 mcg Tablet PO (07:54)
[2024-01-21] MEDS: donepezil 5 MG Tablet PO (07:55)
[2024-01-21] MEDS: tamsulosin 0.4 mg Capsule 0.400000000000000022 MG PO (07:55)
[2024-01-21] MEDS: aspirin 81 mg EC Tablet PO (07:55)
[2024-01-21] MEDS: dicyclomine 10 mg Capsule PO ×3 (07:55→20:10)
[2024-01-21] MEDS: duloxetine 60 mg Capsule PO ×2 (07:55→17:14)
[2024-01-21] MEDS: pantoprazole DR 40 mg Tablet PO (07:55)
[2024-01-21] MEDS: DOCUSATE SODIUM 100 MG/10 ML UDC 60 MG PO (07:55)
[2024-01-21 13:23] VITALS: BP 117/78; PULSE 82; RESP 18; TEMP 36.4; O2SAT 99
--- NOTE | 2024-01-21 16:40 | P.NPUPN_ITS ---
Subjective NPU 2 Subjective: Patient presented today reporting that he is doing okay. He denied any problems or issues. We discussed the fact that his placement is now partially going to be related to when his level 2 documentation is identified as complete in the system. He reports being optimistic about moving forward with that. We have talked to the guardian about the possibility of him leaving/going home if he is not chosen by facility by Saturday when his shot is due. He denied any side effects of the medication. Mental Status Exam 2 MSE Comments: This is a slender white male in hospital scrubs looking older than his stated age with limited grooming and eye contact. No abnormal movements except for psychomotor retardation. More cooperative with exam in mild distress. Speech was normal to increased rate and decreased volume usually. Mood described as maybe a little better, affect more calm. Thought process linear but occasionally disorganized. Thought content: Patient denied suicidal or homicidal ideation, there were no delusions reported but some paranoia or persecutory thinking noted, he denied visual hallucinations but did endorse some auditory hallucinations and did not appear at times to be attending to internal stimuli. Attention and concentration were limited and memory was unreliable but none were formally tested. He is alert and oriented x [address] Insight, judgment and impulse control are improving. 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 insulin use: without detention use Diabetes mellitus complication status: without complication Qualified Code(s): E11.9 - Type 2 diabetes mellitus without complications (4) Hypothyroid: Qualifiers: Hypothyroidism type: unspecified Qualified Code(s): E03.9 - Hypothyroidism, unspecified (5) Agitation: (6) Hallucinations: (7) Major depressive disorder, recurrent, mild: (8) On combination antipsychotic drug therapy: (9) Schizophrenia: Plan This is a 63-year-old male who presented to the emergency department with reports from his guardian of increased bizarre behavior and hallucinations known from a past hospitalization with similar symptoms. 1. Continue current medications. Identify if he has been consistent with the medications he was discharged on and appeared to stabilize him during his last stay. Patient is on Invega Sustenna 234 mg IM q. monthly. Next injection is due 01/24/2024. Patient seems to be improving based on getting his regular medication during this stay. 2. Encourage individual group and milieu therapy. 3. continue 15-minute med checks for safety. 4. Get collateral information from daughter/family/guardian. 5. Plan for discharge after his injection given and hopefully to a facility if possible at that time. Involuntary Hold Information 2 96 Hour Hold: 96 Hour Involuntary Admission: Yes Attestations NPU 2 Medical Necessity Statement*: Inpatient hospitalization is medically necessary and the clinically appropriate intervention at this time. We will monitor medications and make changes as indicated. Likely length of stay 3-6 days. Coding Level of Care Code Acute Code for [facility] Fwd Diagnoses Acute psychosis F23 Noncompliance with medication regimen Z91.148 Type 2 diabetes mellitus without complication, without long-term current use of insulin E11.9 Diabetes mellitus type: type 2 Diabetes mellitus exterminator termite insulin use: without detention use Diabetes mellitus complication status: without complication Hypothyroidism, unspecified type E03.9 Hypothyroidism type: unspecified Agitation R45.1 Hallucinations R44.3 Major depressive disorder, recurrent, mild F33.0 On combination antipsychotic drug therapy Z79.899 Schizophrenia F20.9
[2024-01-21] MEDS: atorvastatin 40 mg Tablet PO (17:14)
[2024-01-21] MEDS: ziprasidone hcl 40 mg Capsule 80 MG PO (20:09)
[2024-01-21] MEDS: trazodone 100 mg Tablet PO (20:10)
[2024-01-21] MEDS: CLONazepam 1 mg Tablet PO (20:10)
[2024-01-21] MEDS: cetirizine 10 mg Tablet PO (20:10)
[2024-01-21 20:13] VITALS: BP 99/64; PULSE 66; RESP 18; TEMP 37; O2SAT 98
[2024-01-21] MEDS: ibuprofen 600 mg Tablet PO (21:18)
[2024-01-22] MEDS: levothyroxine 88 mcg Tablet PO (05:57)
[2024-01-22 06:00] VITALS: BP 116/78; PULSE 74; RESP 20; TEMP 36.6; O2SAT 98
[2024-01-22] MEDS: pantoprazole DR 40 mg Tablet PO (08:58)
[2024-01-22] MEDS: donepezil 5 MG Tablet PO (08:58)
[2024-01-22] MEDS: duloxetine 60 mg Capsule PO ×2 (08:58→17:49)
[2024-01-22] MEDS: aspirin 81 mg EC Tablet PO (08:58)
[2024-01-22] MEDS: buPROPion XL (24 HR) 150 mg Tablet PO (08:58)
[2024-01-22] MEDS: paliperidone ER 6 mg Tablet PO (08:59)
[2024-01-22] MEDS: tamsulosin 0.4 mg Capsule 0.400000000000000022 MG PO (08:59)
[2024-01-22] MEDS: dicyclomine 10 mg Capsule PO ×3 (08:59→20:13)
[2024-01-22] MEDS: hyDROXYzine 25 mg Capsule PO ×3 (08:59→20:13)
[2024-01-22] MEDS: DOCUSATE SODIUM 100 MG/10 ML UDC 60 MG PO ×2 (09:09→17:49)
[2024-01-22 14:00] VITALS: BP 100/71; PULSE 78; RESP 17; TEMP 36.8; O2SAT 99
[2024-01-22 15:12] VITALS: PULSE 100; RESP 16; O2SAT 97
--- NOTE | 2024-01-22 17:27 | W.PM.NPUPNS ---
Subjective NPU Subjective: Presented today reporting that he is feeling fine. We continue to discuss the level II process and plan for placement. Staff report of occasional putting off of medication but eventual adherence. This likely underscores what happens at home. He denies any problems or side effects from medications. Mental Status Exam MSE Comments: This is a slender white male in hospital scrubs looking older than his stated age with limited grooming and eye contact. No abnormal movements except for psychomotor retardation. More cooperative with exam in mild distress. Speech was normal to increased rate and decreased volume usually. Mood described as maybe a little better, affect more calm. Thought process linear but occasionally disorganized. Thought content: Patient denied suicidal or homicidal ideation, there were no delusions reported but some paranoia or persecutory thinking noted, he denied visual hallucinations but did endorse some auditory hallucinations and did not appear at times to be attending to internal stimuli. Attention and concentration were limited and memory was unreliable but none were formally tested. He is alert and oriented x [address] Insight, judgment and impulse control are improving. Vitals/I&O/Wt Last Vital Signs Temp 97.9 F 01/22/24 22:00 Pulse 70 01/22/24 22:00 Resp 16 01/22/24 22:00 BP 96/69 01/22/24 22:00 Pulse Ox 98 01/22/24 22:00 O2 Del Method Room Air 01/22/24 22:00 Data NPU 01/13/24 16:47 01/13/24 16:47 A&P Assessment and plan (1) Acute psychosis: (2) Noncompliance with medication regimen: (3) Diabetes: Qualifiers: Diabetes mellitus type: type 2 Diabetes mellitus intermediate project manager insulin use: without intermediate use Diabetes mellitus complication status: without complication Qualified Code(s): E11.9 - Type 2 diabetes mellitus without complications (4) Hypothyroid: Qualifiers: Hypothyroidism type: unspecified Qualified Code(s): E03.9 - Hypothyroidism, unspecified (5) Agitation: (6) Hallucinations: (7) Major depressive disorder, recurrent, mild: (8) On combination antipsychotic drug therapy: (9) Schizophrenia: Plan This is a 63-year-old male who presented to the emergency department with reports from his guardian of increased bizarre behavior and hallucinations known from a past hospitalization with similar symptoms. 1. Continue current medications. Identify if he has been consistent with the medications he was discharged on and appeared to stabilize him during his last stay. Patient is on Invega Sustenna 234 mg IM q. monthly. Next injection is due 01/24/2024. Patient seems to be improving based on getting his regular medication during this stay. 2. Encourage individual group and milieu therapy. 3. continue 15-minute med checks for safety. 4. Get collateral information from daughter/family/guardian. 5. Plan for discharge after his injection given and hopefully to a facility if possible at that time. Still awaiting level 2 completion in the system. Involuntary Hold Information 96 Hour Hold: 96 Hour Involuntary Admission: Yes Attestations NPU Medical Necessity Statement*: Inpatient hospitalization is medically necessary and the clinically appropriate intervention at this time. We will monitor medications and make changes as indicated. Likely length of stay 2-5 days. Coding Level of Care Code Acute Code for g Fwd Diagnoses Acute psychosis F23 Noncompliance with medication regimen Z91.148 Type 2 diabetes mellitus without complication, without long-term current use of insulin E11.9 Diabetes mellitus type: type 2 Diabetes mellitus intermediate project manager insulin use: without intermediate project manager use Diabetes mellitus complication status: without complication Hypothyroidism, unspecified type E03.9 Hypothyroidism type: unspecified Agitation R45.1 Hallucinations R44.3 Major depressive disorder, recurrent, mild F33.0 On combination antipsychotic drug therapy Z79.899 Schizophrenia F20.9
[2024-01-22] MEDS: isosorbide mononitrate 20 mg Tablet 10 MG PO (17:49)
[2024-01-22] MEDS: atorvastatin 40 mg Tablet PO (17:50)
[2024-01-22] MEDS: cetirizine 10 mg Tablet PO (20:13)
[2024-01-22] MEDS: CLONazepam 1 mg Tablet PO (20:13)
[2024-01-22] MEDS: ziprasidone hcl 40 mg Capsule 80 MG PO (20:13)
[2024-01-22] MEDS: trazodone 100 mg Tablet PO (20:14)
[2024-01-22 22:00] VITALS: BP 96/69; PULSE 70; RESP 16; TEMP 36.6; O2SAT 98
[2024-01-23 05:53] VITALS: BP 94/57; PULSE 80; RESP 16; TEMP 36.7; O2SAT 97
[2024-01-23] MEDS: levothyroxine 88 mcg Tablet PO (07:12)
[2024-01-23] MEDS: paliperidone ER 6 mg Tablet PO (10:46)
[2024-01-23] MEDS: DOCUSATE SODIUM 100 MG/10 ML UDC 60 MG PO (10:46)
[2024-01-23] MEDS: duloxetine 60 mg Capsule PO ×2 (10:47→18:36)
[2024-01-23] MEDS: pantoprazole DR 40 mg Tablet PO (10:47)
[2024-01-23] MEDS: donepezil 5 MG Tablet PO (10:47)
[2024-01-23] MEDS: tamsulosin 0.4 mg Capsule 0.400000000000000022 MG PO (10:47)
[2024-01-23] MEDS: buPROPion XL (24 HR) 150 mg Tablet PO (10:47)
[2024-01-23] MEDS: isosorbide mononitrate 20 mg Tablet 10 MG PO ×2 (10:47→18:36)
[2024-01-23] MEDS: aspirin 81 mg EC Tablet PO (10:47)
[2024-01-23] MEDS: dicyclomine 10 mg Capsule PO ×3 (10:47→21:25)
[2024-01-23] MEDS: hyDROXYzine 25 mg Capsule PO ×3 (10:48→21:25)
--- NOTE | 2024-01-23 13:40 | W.PM.NPUPNS ---
Subjective NPU Subjective: Patient presents today reporting that he is doing fine. He reports that he has no concerns and denied side effects to the medication. We discussed the fact that he is due for his Invega Sustenna injection tomorrow. Otherwise we discussed that the level II documentation has not become official in the system but that we have a couple lines that are available. We will speak to guardian about the possibility of discharge home prior to placement. Mental Status Exam MSE Comments: This is a slender white male in hospital scrubs looking older than his stated age with limited grooming and eye contact. No abnormal movements except for psychomotor retardation. More cooperative with exam in mild distress. Speech was normal to increased rate and decreased volume usually. Mood described as maybe a little better, affect more calm. Thought process linear but occasionally disorganized. Thought content: Patient denied suicidal or homicidal ideation, there were no delusions reported but some paranoia or persecutory thinking noted, he denied visual hallucinations but did endorse some auditory hallucinations and did not appear at times to be attending to internal stimuli. Attention and concentration were limited and memory was unreliable but none were formally tested. He is alert and oriented x [address] Insight, judgment and impulse control are improving. Vitals/I&O/Wt Last Vital Signs Temp 98.0 F 01/23/24 05:53 Pulse 80 01/23/24 05:53 Resp 16 01/23/24 05:53 BP 94/57 01/23/24 05:53 Pulse Ox 97 01/23/24 05:53 O2 Del Method Room Air 01/23/24 05:53 Data NPU 01/13/24 16:47 01/13/24 16:47 A&P Assessment and plan (1) Acute psychosis: (2) Noncompliance with medication regimen: (3) Diabetes: Qualifiers: Diabetes mellitus type: type 2 Diabetes mellitus long-term insulin use: without olericulturist use Diabetes mellitus complication status: without complication Qualified Code(s): E11.9 - Type 2 diabetes mellitus without complications (4) Hypothyroid: Qualifiers: Hypothyroidism type: unspecified Qualified Code(s): E03.9 - Hypothyroidism, unspecified (5) Agitation: (6) Hallucinations: (7) Major depressive disorder, recurrent, mild: (8) On combination antipsychotic drug therapy: (9) Schizophrenia: Plan This is a 63-year-old male who presented to the emergency department with reports from his guardian of increased bizarre behavior and hallucinations known from a past hospitalization with similar symptoms. 1. Continue current medications. Identify if he has been consistent with the medications he was discharged on and appeared to stabilize him during his last stay. Patient is on Invega Sustenna 234 mg IM q. monthly. Next injection is due 01/24/2024. Patient seems to be improving based on getting his regular medication during this stay. 2. Encourage individual group and milieu therapy. 3. continue 15-minute med checks for safety. 4. Get collateral information from daughter/family/guardian. 5. Plan for discharge after his injection given and hopefully to a facility if possible at that time. Still awaiting level 2 completion in the system. Involuntary Hold Information 96 Hour Hold: 96 Hour Involuntary Admission: Yes Attestations NPU Medical Necessity Statement*: Inpatient hospitalization is medically necessary and the clinically appropriate intervention at this time. We will monitor medications and make changes as indicated. Likely length of stay 2-5 days. Coding Level of Care Code Acute Code for [facility] Fwd Diagnoses Acute psychosis F23 Noncompliance with medication regimen Z91.148 Type 2 diabetes mellitus without complication, without long-term current use of insulin E11.9 Diabetes mellitus type: type 2 Diabetes mellitus long-term insulin use: without long-term use Diabetes mellitus complication status: without complication Hypothyroidism, unspecified type E03.9 Hypothyroidism type: unspecified Agitation R45.1 Hallucinations R44.3 Major depressive disorder, recurrent, mild F33.0 On combination antipsychotic drug therapy Z79.899 Schizophrenia F20.9
[2024-01-23 13:44] VITALS: BP 97/64; PULSE 88; RESP 18; TEMP 36.4; O2SAT 99
[2024-01-23] MEDS: nicotine 21 mg Patch 1 PATCH TRANSDERMA (17:02)
[2024-01-23] MEDS: atorvastatin 40 mg Tablet PO (18:36)
[2024-01-23 20:54] VITALS: BP 117/74; PULSE 73; RESP 16; TEMP 36.6; O2SAT 99
[2024-01-23] MEDS: cetirizine 10 mg Tablet PO (21:25)
[2024-01-23] MEDS: trazodone 100 mg Tablet PO (21:25)
[2024-01-23] MEDS: CLONazepam 1 mg Tablet PO (21:25)
[2024-01-23] MEDS: ziprasidone hcl 40 mg Capsule 80 MG PO (21:25)
[2024-01-24] MEDS: acetaminophen 325 mg Tablet 650 MG PO (01:56)
[2024-01-24] MEDS: levothyroxine 88 mcg Tablet PO (05:31)
[2024-01-24 06:00] VITALS: BP 118/77; PULSE 87; RESP 16; TEMP 36.5; O2SAT 99
[2024-01-24] MEDS: isosorbide mononitrate 20 mg Tablet 10 MG PO ×2 (09:14→17:52)
[2024-01-24] MEDS: duloxetine 60 mg Capsule PO ×2 (09:15→17:52)
[2024-01-24] MEDS: buPROPion XL (24 HR) 150 mg Tablet PO (09:15)
[2024-01-24] MEDS: dicyclomine 10 mg Capsule PO ×3 (09:15→21:45)
[2024-01-24] MEDS: pantoprazole DR 40 mg Tablet PO (09:15)
[2024-01-24] MEDS: paliperidone ER 6 mg Tablet PO (09:15)
[2024-01-24] MEDS: aspirin 81 mg EC Tablet PO (09:15)
[2024-01-24] MEDS: tamsulosin 0.4 mg Capsule 0.400000000000000022 MG PO (09:15)
[2024-01-24] MEDS: donepezil 5 MG Tablet PO (09:15)
[2024-01-24] MEDS: hyDROXYzine 25 mg Capsule PO ×3 (09:15→21:45)
[2024-01-24 10:28] VITALS: PULSE 99; RESP 16; O2SAT 98
--- NOTE | 2024-01-24 12:12 | W.PM.NPUPNS ---
Subjective NPU Subjective: Patient presented today reporting that he is doing fine. We discussed that continuum plan to get him his Invega Sustenna injection today and then see at the beginning of the week if we can get him into some program. We have continued to discuss with the guardian the possibility that he will be discharged the beginning of next week while awaiting placement. We discussed Dr. Parkinson returning tomorrow and being in charge of this process. Mental Status Exam MSE Comments: This is a slender white male in hospital scrubs looking older than his stated age with limited grooming and eye contact. No abnormal movements except for psychomotor retardation. More cooperative with exam in mild distress. Speech was normal to increased rate and decreased volume usually. Mood described as maybe a little better, affect more calm. Thought process linear but occasionally disorganized. Thought content: Patient denied suicidal or homicidal ideation, there were no delusions reported but some paranoia or persecutory thinking noted, he denied visual hallucinations but did endorse some auditory hallucinations and did not appear at times to be attending to internal stimuli. Attention and concentration were limited and memory was unreliable but none were formally tested. He is alert and oriented x [address] Insight, judgment and impulse control are improving. Vitals/I&O/Wt Last Vital Signs Temp 97.7 F 01/24/24 06:00 Pulse 99 01/24/24 10:28 Resp 16 01/24/24 10:28 BP 118/77 01/24/24 06:00 Pulse Ox 98 01/24/24 10:28 O2 Del Method Room Air 01/24/24 10:28 Data NPU 01/13/24 16:47 01/13/24 16:47 A&P Assessment and plan (1) Acute psychosis: (2) Noncompliance with medication regimen: (3) Diabetes: Qualifiers: Diabetes mellitus type: type 2 Diabetes mellitus termite exterminator helper insulin use: without termite exterminator helper use Diabetes mellitus complication status: without complication Qualified Code(s): E11.9 - Type 2 diabetes mellitus without complications (4) Hypothyroid: Qualifiers: Hypothyroidism type: unspecified Qualified Code(s): E03.9 - Hypothyroidism, unspecified (5) Agitation: (6) Hallucinations: (7) Major depressive disorder, recurrent, mild: (8) On combination antipsychotic drug therapy: (9) Schizophrenia: Plan This is a 63-year-old male who presented to the emergency department with reports from his guardian of increased bizarre behavior and hallucinations known from a past hospitalization with similar symptoms. 1. Continue current medications. Identify if he has been consistent with the medications he was discharged on and appeared to stabilize him during his last stay. Patient is on Invega Sustenna 234 mg IM q. monthly. Next injection is due 01/24/2024. Patient seems to be improving based on getting his regular medication during this stay. 2. Encourage individual group and milieu therapy. 3. continue 15-minute med checks for safety. 4. Get collateral information from daughter/family/guardian. 5. Plan for discharge after his injection given and hopefully to a facility if possible at that time. Still awaiting level 2 completion in the system. Involuntary Hold Information 96 Hour Hold: 96 Hour Involuntary Admission: Yes Attestations NPU Medical Necessity Statement*: Inpatient hospitalization is medically necessary and the clinically appropriate intervention at this time. We will monitor medications and make changes as indicated. Likely length of stay 3 -5 days. Coding Level of Care Code Acute Code for [facility] Fwd Diagnoses Acute psychosis F23 Noncompliance with medication regimen Z91.148 Type 2 diabetes mellitus without complication, without long-term current use of insulin E11.9 Diabetes mellitus type: type 2 Diabetes mellitus nursing home insulin use: without nursing home use Diabetes mellitus complication status: without complication Hypothyroidism, unspecified type E03.9 Hypothyroidism type: unspecified Agitation R45.1 Hallucinations R44.3 Major depressive disorder, recurrent, mild F33.0 On combination antipsychotic drug therapy Z79.899 Schizophrenia F20.9
[2024-01-24 14:00] VITALS: BP 123/77; PULSE 79; RESP 16; TEMP 37.2; O2SAT 98
[2024-01-24] MEDS: paliperidone palmitate 234 mg Syringe IM ×2 (14:20→14:47)
[2024-01-24] MEDS: atorvastatin 40 mg Tablet PO (17:52)
[2024-01-24 19:39] VITALS: BP 123/79; PULSE 87; RESP 17; TEMP 36.4; O2SAT 99
[2024-01-24] MEDS: ziprasidone hcl 40 mg Capsule 80 MG PO (21:45)
[2024-01-24] MEDS: CLONazepam 1 mg Tablet PO (21:45)
[2024-01-24] MEDS: cetirizine 10 mg Tablet PO (21:45)
[2024-01-24] MEDS: trazodone 100 mg Tablet PO (21:47)
[2024-01-25 06:00] VITALS: RESP 16
[2024-01-25] MEDS: levothyroxine 88 mcg Tablet PO (06:30)
[2024-01-25] MEDS: donepezil 5 MG Tablet PO (08:13)
[2024-01-25] MEDS: dicyclomine 10 mg Capsule PO ×3 (08:13→21:01)
[2024-01-25] MEDS: tamsulosin 0.4 mg Capsule 0.400000000000000022 MG PO (08:13)
[2024-01-25] MEDS: buPROPion XL (24 HR) 150 mg Tablet PO (08:13)
[2024-01-25] MEDS: paliperidone ER 6 mg Tablet PO (08:13)
[2024-01-25] MEDS: aspirin 81 mg EC Tablet PO (08:14)
[2024-01-25] MEDS: isosorbide mononitrate 20 mg Tablet 10 MG PO ×2 (08:14→17:35)
[2024-01-25] MEDS: pantoprazole DR 40 mg Tablet PO (08:15)
[2024-01-25] MEDS: duloxetine 60 mg Capsule PO ×2 (08:15→17:35)
[2024-01-25] MEDS: hyDROXYzine 25 mg Capsule PO ×3 (08:15→21:01)
[2024-01-25 14:00] VITALS: BP 121/78; PULSE 78; RESP 16; TEMP 36.3; O2SAT 99
[2024-01-25] MEDS: atorvastatin 40 mg Tablet PO (17:36)
[2024-01-25 20:13] VITALS: BP 127/83; PULSE 86; RESP 18; TEMP 36.6; O2SAT 99
--- NOTE | 2024-01-25 20:44 | W.PM.NPUPNS ---
Subjective NPU Subjective: 63-year-old male with schizophrenia admitted with disorganized thinking and behavior. He had been unable to describe why he had been here in the hospital. He had reported that he was feeling better. He reported no side effects from his medication.. He had stated that he did not think he needed to be on any medications at all. Patient did not report any problems with tolerance of his IM Invega. He continued to be unable to provide information as to why he was hospitalized. Mental Status Exam MSE Comments: This is a slender white male in hospital scrubs looking older than his stated age with limited grooming and eye contact. No abnormal movements except for psychomotor retardation. More cooperative with exam in mild distress. Speech was normal to increased rate and decreased volume usually. Mood described as okay. His affect was blunted and mood incongruent. Thought process was linear but derailment occurred. Thought content: Patient denied suicidal or homicidal ideation, there were no delusions reported but some paranoia and ideas of reference noted. He denied visual hallucinations but did endorse some auditory hallucinations and did not appear at times to be attending to internal stimuli. Attention and concentration were limited and memory was unreliable but none were formally tested. He is alert and oriented x [address] Insight, judgment and impulse control are improving. Vitals/I&O/Wt Last Vital Signs Temp 97.8 F 01/25/24 20:13 Pulse 86 01/25/24 20:13 Resp 18 01/25/24 20:13 BP 127/83 01/25/24 20:13 Pulse Ox 99 01/25/24 20:13 O2 Del Method Room Air 01/24/24 14:00 Data NPU 01/13/24 16:47 01/13/24 16:47 A&P Assessment and plan (1) Acute psychosis: (2) Noncompliance with medication regimen: (3) Diabetes: Qualifiers: Diabetes mellitus type: type 2 Diabetes mellitus correction insulin use: without terminal block assembler use Diabetes mellitus complication status: without complication Qualified Code(s): E11.9 - Type 2 diabetes mellitus without complications (4) Hypothyroid: Qualifiers: Hypothyroidism type: unspecified Qualified Code(s): E03.9 - Hypothyroidism, unspecified (5) Agitation: (6) Hallucinations: (7) Major depressive disorder, recurrent, mild: (8) On combination antipsychotic drug therapy: (9) Schizophrenia: Plan This is a 63-year-old male who presented to the emergency department with reports from his guardian of increased bizarre behavior and hallucinations known from a past hospitalization with similar symptoms. 1. Continue current medications. Identify if he has been consistent with the medications he was discharged on and appeared to stabilize him during his last stay. Patient is on Invega Sustenna 234 mg IM q. monthly. Patient seems to be improving based on getting his regular medication during this stay.He remains on Geodon 80mg at night and Invega oral. 2. Encourage individual group and milieu therapy. 3. continue 15-minute med checks for safety. 4. Get collateral information from daughter/family/guardian. 5. Plan for discharge after his injection given and hopefully to a facility if possible at that time. Still awaiting level 2 completion in the system. Involuntary Hold Information 96 Hour Hold: 96 Hour Involuntary Admission: Yes Attestations NPU Medical Necessity Statement*: Inpatient hospitalization is medically necessary and the clinically appropriate intervention at this time. We will monitor medications and make changes as indicated. His likely length of stay is 5-7 days. Coding Level of Care Code Acute Code for [facility] Fwd Diagnoses Acute psychosis F23 Noncompliance with medication regimen Z91.148 Type 2 diabetes mellitus without complication, without long-term current use of insulin E11.9 Diabetes mellitus type: type 2 Diabetes mellitus terminal block assembler insulin use: without correction use Diabetes mellitus complication status: without complication Hypothyroidism, unspecified type E03.9 Hypothyroidism type: unspecified Agitation R45.1 Hallucinations R44.3 Major depressive disorder, recurrent, mild F33.0 On combination antipsychotic drug therapy Z79.899 Schizophrenia F20.9
[2024-01-25] MEDS: ziprasidone hcl 40 mg Capsule 80 MG PO (21:01)
[2024-01-25] MEDS: cetirizine 10 mg Tablet PO (21:01)
[2024-01-25] MEDS: CLONazepam 1 mg Tablet PO (21:01)
[2024-01-25] MEDS: trazodone 100 mg Tablet PO (21:01)
[2024-01-26 06:00] VITALS: BP 114/75; PULSE 93; RESP 18; TEMP 36.3; O2SAT 97
[2024-01-26] MEDS: levothyroxine 88 mcg Tablet PO (06:01)
[2024-01-26] MEDS: dicyclomine 10 mg Capsule PO ×3 (09:44→20:38)
[2024-01-26] MEDS: donepezil 5 MG Tablet PO (09:44)
[2024-01-26] MEDS: paliperidone ER 6 mg Tablet PO (09:44)
[2024-01-26] MEDS: hyDROXYzine 25 mg Capsule PO ×3 (09:44→20:38)
[2024-01-26] MEDS: isosorbide mononitrate 20 mg Tablet 10 MG PO ×2 (09:44→17:46)
[2024-01-26] MEDS: aspirin 81 mg EC Tablet PO (09:44)
[2024-01-26] MEDS: pantoprazole DR 40 mg Tablet PO (09:44)
[2024-01-26] MEDS: tamsulosin 0.4 mg Capsule 0.400000000000000022 MG PO (09:44)
[2024-01-26] MEDS: buPROPion XL (24 HR) 150 mg Tablet PO (09:44)
[2024-01-26] MEDS: duloxetine 60 mg Capsule PO ×2 (09:44→17:46)
[2024-01-26 14:00] VITALS: BP 121/76; PULSE 86; RESP 17; TEMP 36.4; O2SAT 99
--- NOTE | 2024-01-26 17:25 | P.NPUPN_ITS ---
Subjective NPU 2 Subjective: 63-year-old male with schizophrenia and dementia admitted with disorganized thinking and behavior. No side effects were reported. He had continued to insist that he was ready to leave the hospital. He had remained confused about his whereabouts. He reported no side effects from his medications. He had reported adequate sleep. There was no episodes of aggression on the unit. Mental Status Exam 2 MSE Comments: This is a slender white male in hospital scrubs looking older than his stated age with limited grooming and eye contact. No abnormal movements except for psychomotor slowing. He was more cooperative with exam in mild distress. Speech was decreased in rate and decreased volume usually with word finding difficulties. Mood described as allright. His affect was blunted and mood incongruent. Thought process was linear but derailment occurred. Thought content: Patient denied suicidal or homicidal ideation, there were no delusions reported but some paranoia and ideas of reference noted. He denied visual hallucinations but did endorse some auditory hallucinations and did not appear at times to be attending to internal stimuli. Attention and concentration were limited and memory was unreliable but none were formally tested. He is alert and oriented x [address] but not date. Insight, judgment and impulse control are improving. Vitals/I&O/Wt Last Vital Signs Temp 97.5 F L 01/26/24 14:00 Pulse 86 01/26/24 14:00 Resp 17 01/26/24 14:00 BP 121/76 01/26/24 14:00 Pulse Ox 99 01/26/24 14:00 O2 Del Method Room Air 01/24/24 14:00 Weight last 48 hrs Weight 71.668 kg Data NPU 01/13/24 16:47 01/13/24 16:47 A&P Assessment and plan (1) Acute psychosis: (2) Noncompliance with medication regimen: (3) Diabetes: Qualifiers: Diabetes mellitus type: type 2 Diabetes mellitus usp insulin use: without supervisor intermediates use Diabetes mellitus complication status: without complication Qualified Code(s): E11.9 - Type 2 diabetes mellitus without complications (4) Hypothyroid: Qualifiers: Hypothyroidism type: unspecified Qualified Code(s): E03.9 - Hypothyroidism, unspecified (5) Agitation: (6) Hallucinations: (7) Major depressive disorder, recurrent, mild: (8) On combination antipsychotic drug therapy: (9) Schizophrenia: Plan This is a 63-year-old male who presented to the emergency department with reports from his guardian of increased bizarre behavior and hallucinations known from a past hospitalization with similar symptoms. 1. Continue current medications. Identify if he has been consistent with the medications he was discharged on and appeared to stabilize him during his last stay. Patient is on Invega Sustenna 234 mg IM q. monthly -Given on 01/24/24. Patient seems to be improving based on getting his regular medication during this stay. He remains on Geodon 80mg at night and plan to taper off invega oral. 2. Encourage individual group and milieu therapy. 3. continue 15-minute med checks for safety. 4. Get collateral information from daughter/family/guardian. 5. Plan for discharge after his injection given and hopefully to a facility if possible at that time. Still awaiting level 2 completion in the system. Involuntary Hold Information 2 96 Hour Hold: 96 Hour Involuntary Admission: Yes Attestations NPU 2 Medical Necessity Statement*: Inpatient hospitalization is medically necessary and the clinically appropriate intervention at this time. We will monitor medications and make changes as indicated. His likely length of stay is 5-7 days. Coding Level of Care Code Acute Code for [facility] Fwd Diagnoses Acute psychosis F23 Noncompliance with medication regimen Z91.148 Type 2 diabetes mellitus without complication, without long-term current use of insulin E11.9 Diabetes mellitus type: type 2 Diabetes mellitus supervisor intermediates insulin use: without usp use Diabetes mellitus complication status: without complication Hypothyroidism, unspecified type E03.9 Hypothyroidism type: unspecified Agitation R45.1 Hallucinations R44.3 Major depressive disorder, recurrent, mild F33.0 On combination antipsychotic drug therapy Z79.899 Schizophrenia F20.9
[2024-01-26] MEDS: atorvastatin 40 mg Tablet PO (17:46)
[2024-01-26 19:44] VITALS: BP 113/74; PULSE 105; RESP 18; TEMP 36.6; O2SAT 96
[2024-01-26] MEDS: ziprasidone hcl 40 mg Capsule 80 MG PO (20:38)
[2024-01-26] MEDS: trazodone 100 mg Tablet PO (20:38)
[2024-01-26] MEDS: CLONazepam 1 mg Tablet PO (20:38)
[2024-01-26] MEDS: cetirizine 10 mg Tablet PO (20:38)
[2024-01-27 06:00] VITALS: BP 115/81; PULSE 112; RESP 18; TEMP 36.5; O2SAT 95
[2024-01-27] MEDS: levothyroxine 88 mcg Tablet PO (06:18)
[2024-01-27] MEDS: donepezil 5 MG Tablet PO (09:35)
[2024-01-27] MEDS: dicyclomine 10 mg Capsule PO ×3 (09:35→19:57)
[2024-01-27] MEDS: tamsulosin 0.4 mg Capsule 0.400000000000000022 MG PO (09:35)
[2024-01-27] MEDS: paliperidone ER 3 mg Tablet PO (09:35)
[2024-01-27] MEDS: aspirin 81 mg EC Tablet PO (09:35)
[2024-01-27] MEDS: isosorbide mononitrate 20 mg Tablet 10 MG PO ×2 (09:36→17:23)
[2024-01-27] MEDS: duloxetine 60 mg Capsule PO ×2 (09:36→17:23)
[2024-01-27] MEDS: buPROPion XL (24 HR) 150 mg Tablet PO (09:36)
[2024-01-27] MEDS: hyDROXYzine 25 mg Capsule PO ×3 (09:36→19:57)
[2024-01-27] MEDS: pantoprazole DR 40 mg Tablet PO (09:36)
[2024-01-27 13:47] VITALS: BP 105/70; PULSE 91; RESP 16; TEMP 36.4; O2SAT 97
--- NOTE | 2024-01-27 17:13 | W.PM.NPUPNS ---
Subjective NPU Subjective: 63-year-old male with schizophrenia and dementia admitted with disorganized thinking and behavior. Patient had no side effects reported from his medications. He had reported feeling better. He was redirectable on the milieu. He appeared less distracted and more focused on the unit although he continued to remain confused at times about his whereabouts. There was no episodes of aggression noted. He continued to struggle with providing details regarding his hospital admission here. Mental Status Exam MSE Comments: This is a healthy white male in hospital scrubs looking older than his stated age with limited grooming and eye contact. No abnormal involuntary motor movements except for psychomotor slowing. He was more cooperative with exam in mild distress. Speech was decreased in rate and decreased volume usually with word finding difficulties. Mood described as good. His affect was blunted and mood incongruent. Thought process was linear but superficial. There was evidence of poverty of overall content. Thought content: Patient denied suicidal or homicidal ideation, there were no delusions reported but some paranoia and ideas of reference noted. He denied visual hallucinations but did endorse some auditory hallucinations and did not appear at times to be attending to internal stimuli. Attention and concentration were limited and memory was unreliable but none were formally tested. He is alert and oriented x [address] but not date. Insight was limited. His judgment was poor and impulse control appeared to be improving. Vitals/I&O/Wt Last Vital Signs Temp 97.5 F L 01/27/24 13:47 Pulse 91 01/27/24 13:47 Resp 16 01/27/24 13:47 BP 105/70 01/27/24 13:47 Pulse Ox 97 01/27/24 13:47 O2 Del Method Room Air 01/24/24 14:00 Weight last 48 hrs Weight 71.668 kg Data NPU 01/13/24 16:47 01/13/24 16:47 A&P Assessment and plan (1) Acute psychosis: (2) Noncompliance with medication regimen: (3) Diabetes: Qualifiers: Diabetes mellitus type: type 2 Diabetes mellitus buttermaker continuous churn insulin use: without buttermaker continuous churn use Diabetes mellitus complication status: without complication Qualified Code(s): E11.9 - Type 2 diabetes mellitus without complications (4) Hypothyroid: Qualifiers: Hypothyroidism type: unspecified Qualified Code(s): E03.9 - Hypothyroidism, unspecified (5) Agitation: (6) Hallucinations: (7) Major depressive disorder, recurrent, mild: (8) On combination antipsychotic drug therapy: (9) Schizophrenia: Plan This is a 63-year-old male who presented to the emergency department with reports from his guardian of increased bizarre behavior and hallucinations known from a past hospitalization with similar symptoms. 1. Continue Aricept, wellbutrin xl, klonopin and cymbalta as prescribed. Identify if he has been consistent with the medications he was discharged on and appeared to stabilize him during his last stay. Patient is on Invega Sustenna 234 mg IM q. monthly -Given on 01/24/24. Patient seems to be improving based on getting his regular medication during this stay. He remains on Geodon 80mg at night and plan to taper off invega oral. 2. Encourage individual group and milieu therapy. 3. continue 15-minute med checks for safety. 4. Get collateral information from daughter/family/guardian. 5. Plan for discharge after his injection given and hopefully to a facility if possible at that time. Still awaiting level 2 completion in the system. Involuntary Hold Information 96 Hour Hold: 96 Hour Involuntary Admission: Yes Attestations NPU Medical Necessity Statement*: Inpatient hospitalization is medically necessary and the clinically appropriate intervention at this time. We will monitor medications and make changes as indicated. His likely length of stay is 5-7 days. Coding Level of Care Code Acute Code for [facility] Fwd Diagnoses Acute psychosis F23 Noncompliance with medication regimen Z91.148 Type 2 diabetes mellitus without complication, without long-term current use of insulin E11.9 Diabetes mellitus type: type 2 Diabetes mellitus buttermaker continuous churn insulin use: without buttermaker continuous churn use Diabetes mellitus complication status: without complication Hypothyroidism, unspecified type E03.9 Hypothyroidism type: unspecified Agitation R45.1 Hallucinations R44.3 Major depressive disorder, recurrent, mild F33.0 On combination antipsychotic drug therapy Z79.899 Schizophrenia F20.9
[2024-01-27] MEDS: atorvastatin 40 mg Tablet PO (17:23)
[2024-01-27] MEDS: CLONazepam 1 mg Tablet PO (19:57)
[2024-01-27] MEDS: trazodone 100 mg Tablet PO (19:57)
[2024-01-27] MEDS: ziprasidone hcl 40 mg Capsule 80 MG PO (19:57)
[2024-01-27] MEDS: cetirizine 10 mg Tablet PO (19:57)
[2024-01-27 21:35] VITALS: BP 107/68; PULSE 82; RESP 18; TEMP 36.4; O2SAT 99
[2024-01-28 06:00] VITALS: BP 115/75; PULSE 86; RESP 17; TEMP 36.6; O2SAT 99
[2024-01-28] MEDS: dicyclomine 10 mg Capsule PO ×3 (08:29→20:13)
[2024-01-28] MEDS: paliperidone ER 3 mg Tablet PO (08:29)
[2024-01-28] MEDS: donepezil 5 MG Tablet PO (08:29)
[2024-01-28] MEDS: aspirin 81 mg EC Tablet PO (08:29)
[2024-01-28] MEDS: pantoprazole DR 40 mg Tablet PO (08:29)
[2024-01-28] MEDS: duloxetine 60 mg Capsule PO ×2 (08:29→17:56)
[2024-01-28] MEDS: levothyroxine 88 mcg Tablet PO (08:29)
[2024-01-28] MEDS: hyDROXYzine 25 mg Capsule PO ×3 (08:30→20:13)
[2024-01-28] MEDS: isosorbide mononitrate 20 mg Tablet 10 MG PO ×2 (08:30→17:56)
[2024-01-28] MEDS: buPROPion XL (24 HR) 150 mg Tablet PO (08:30)
[2024-01-28] MEDS: tamsulosin 0.4 mg Capsule 0.400000000000000022 MG PO (08:30)
[2024-01-28 13:53] VITALS: BP 105/68; PULSE 89; RESP 16; TEMP 36.8; O2SAT 97
--- NOTE | 2024-01-28 15:50 | W.PM.NPUPNS ---
Subjective NPU Subjective: 63-year-old male with schizophrenia and dementia admitted with disorganized thinking and behavior. Patient was pleasant and cooperative on the milieu. He was scheduled for a level 2 interview today. He was redirectable. He had remained confused and continued to appear motivated to eat on reported no sleep disturbance. There is no episodes of aggression noted. There were no substantial changes noted. Mental Status Exam MSE Comments: This is a healthy white male in hospital scrubs looking older than his stated age with limited grooming and eye contact. No abnormal involuntary motor movements except for psychomotor slowing. He was more cooperative with exam in mild distress. Speech was decreased in rate and decreased volume usually with word finding difficulties. Mood described as good. His affect was blunted and mood incongruent. Thought process was linear but superficial. There was evidence of poverty of overall content. Thought content: Patient denied suicidal or homicidal ideation, there were no delusions reported but some paranoia and ideas of reference noted. He denied auditory and visual hallucinations and did not appear at times to be attending to internal stimuli. Attention and concentration were limited and memory was unreliable but none were formally tested. He is alert and oriented x [address] but not date. Insight was limited. His judgment was poor and impulse control appeared to be improving. 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 Diabetes mellitus complication status: without complication Qualified Code(s): E11.9 - Type 2 diabetes mellitus without complications (4) Hypothyroid: Qualifiers: Hypothyroidism type: unspecified Qualified Code(s): E03.9 - Hypothyroidism, unspecified (5) Agitation: (6) Hallucinations: (7) Major depressive disorder, recurrent, mild: (8) On combination antipsychotic drug therapy: (9) Schizophrenia: Plan This is a 63-year-old male who presented to the emergency department with reports from his guardian of increased bizarre behavior and hallucinations known from a past hospitalization with similar symptoms. 1. Continue Aricept, wellbutrin xl, klonopin and cymbalta as prescribed. Identify if he has been consistent with the medications he was discharged on and appeared to stabilize him during his last stay. Patient is on Invega Sustenna 234 mg IM q. monthly -Given on 01/24/24. Patient seems to be improving based on getting his regular medication during this stay. He remains on Geodon 80mg at night and plan to taper off invega oral. 2. Encourage individual group and milieu therapy. 3. continue 15-minute med checks for safety. 4. Get collateral information from daughter/family/guardian. 5. Plan for discharge after his injection given and hopefully to a facility if possible at that time. Level 2 evaluation/interview scheduled today. Involuntary Hold Information 96 Hour Hold: 96 Hour Involuntary Admission: Yes Attestations NPU Medical Necessity Statement*: Inpatient hospitalization is medically necessary and the clinically appropriate intervention at this time. We will monitor medications and make changes as indicated. His likely length of stay is 5-7 days. Coding Level of Care Code Acute Code for Chg Fwd Diagnoses Acute psychosis F23 Noncompliance with medication regimen Z91.148 Type 2 diabetes mellitus without complication, without long-term current use of insulin E11.9 Diabetes mellitus type: type 2 Diabetes mellitus nursing home insulin use: without nursing home use Diabetes mellitus complication status: without complication Hypothyroidism, unspecified type E03.9 Hypothyroidism type: unspecified Agitation R45.1 Hallucinations R44.3 Major depressive disorder, recurrent, mild F33.0 On combination antipsychotic drug therapy Z79.899 Schizophrenia F20.9
[2024-01-28] MEDS: atorvastatin 40 mg Tablet PO (17:56)
[2024-01-28 20:03] VITALS: BP 114/72; PULSE 75; RESP 17; TEMP 36.6; O2SAT 97
[2024-01-28] MEDS: trazodone 100 mg Tablet PO (20:13)
[2024-01-28] MEDS: ziprasidone hcl 40 mg Capsule 80 MG PO (20:13)
[2024-01-28] MEDS: CLONazepam 1 mg Tablet PO (20:13)
[2024-01-28] MEDS: cetirizine 10 mg Tablet PO (20:13)
[2024-01-29] MEDS: levothyroxine 88 mcg Tablet PO (05:57)
[2024-01-29 06:00] VITALS: BP 122/78; PULSE 81; RESP 17; TEMP 36.3; O2SAT 97
[2024-01-29] MEDS: aspirin 81 mg EC Tablet PO (08:07)
[2024-01-29] MEDS: pantoprazole DR 40 mg Tablet PO (08:07)
[2024-01-29] MEDS: dicyclomine 10 mg Capsule PO ×3 (08:07→21:23)
[2024-01-29] MEDS: hyDROXYzine 25 mg Capsule PO ×3 (08:07→21:22)
[2024-01-29] MEDS: duloxetine 60 mg Capsule PO ×2 (08:07→17:17)
[2024-01-29] MEDS: donepezil 5 MG Tablet PO (08:07)
[2024-01-29] MEDS: paliperidone ER 3 mg Tablet PO (08:07)
[2024-01-29] MEDS: tamsulosin 0.4 mg Capsule 0.400000000000000022 MG PO (08:07)
[2024-01-29] MEDS: buPROPion XL (24 HR) 150 mg Tablet PO (08:07)
[2024-01-29] MEDS: isosorbide mononitrate 20 mg Tablet 10 MG PO ×2 (08:08→17:18)
[2024-01-29 14:00] VITALS: BP 110/73; PULSE 77; RESP 16; TEMP 36.3; O2SAT 99
--- NOTE | 2024-01-29 16:19 | P.NPUPN_ITS ---
Subjective NPU 2 Subjective: 63-year-old male with schizophrenia and dementia admitted with disorganized thinking and behavior. The patient was pleasant and cooperative on the milieu. There was no evidence of aggression. He reported that he was okay with leaving the hospital when staff felt that he was ready. He had completed the level 2 interview without any incidents. No sleep disturbance was appreciated. Mental Status Exam 2 MSE Comments: This is a healthy white male in hospital scrubs looking older than his stated age with improved grooming and eye contact. No abnormal involuntary motor movements except for psychomotor slowing. He was more cooperative with exam in no acute distress. Speech was decreased in rate and normal in volume usually with word finding difficulties. Mood described as good. His affect was blunted and mood incongruent. Thought process was linear but superficial. There was evidence of poverty of overall content. Thought content: Patient denied suicidal or homicidal ideation, there were no delusions reported but some paranoia and ideas of reference noted. He denied auditory and visual hallucinations and did not appear at times to be attending to internal stimuli. Attention and concentration were limited and memory was unreliable but none were formally tested. He is alert and oriented x [address] but not date. Insight was limited. His judgment was poor and impulse control appeared to be improving. 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 operator insulin use: without [facility] use Diabetes mellitus complication status: without complication Qualified Code(s): E11.9 - Type 2 diabetes mellitus without complications (4) Hypothyroid: Qualifiers: Hypothyroidism type: unspecified Qualified Code(s): E03.9 - Hypothyroidism, unspecified (5) Agitation: (6) Hallucinations: (7) Major depressive disorder, recurrent, mild: (8) On combination antipsychotic drug therapy: (9) Schizophrenia: Plan This is a 63-year-old male who presented to the emergency department with reports from his guardian of increased bizarre behavior and hallucinations known from a past hospitalization with similar symptoms. 1. Continue Aricept, wellbutrin xl, klonopin and cymbalta as prescribed. Identify if he has been consistent with the medications he was discharged on and appeared to stabilize him during his last stay. Patient is on Invega Sustenna 234 mg IM q. monthly -Given on 01/24/24. Patient seems to be improving based on getting his regular medication during this stay. He remains on Geodon 80mg at night and will discontinue invega oral. 2. Encourage individual group and milieu therapy. 3. continue 15-minute med checks for safety. 4. Get collateral information from daughter/family/guardian. 5. Plan for discharge after his injection given and hopefully to a facility if possible at that time. Level 2 evaluation/interview completed with team seeking placement at [facility] for ad terminal makeup operator facility. Involuntary Hold Information 2 96 Hour Hold: 96 Hour Involuntary Admission: Yes Attestations NPU 2 Medical Necessity Statement*: Inpatient hospitalization is medically necessary and the clinically appropriate intervention at this time. We will monitor medications and make changes as indicated. His likely length of stay is 5-7 days. Awaiting completion of Level 2 signing and then will seek placement at [facility]. Coding Level of Care Code Acute Code for [facility] Fwd Diagnoses Acute psychosis F23 Noncompliance with medication regimen Z91.148 Type 2 diabetes mellitus without complication, without long-term current use of insulin E11.9 Diabetes mellitus type: type 2 Diabetes mellitus [facility] insulin use: without [facility] use Diabetes mellitus complication status: without complication Hypothyroidism, unspecified type E03.9 Hypothyroidism type: unspecified Agitation R45.1 Hallucinations R44.3 Major depressive disorder, recurrent, mild F33.0 On combination antipsychotic drug therapy Z79.899 Schizophrenia F20.9
[2024-01-29] MEDS: atorvastatin 40 mg Tablet PO (17:17)
[2024-01-29 21:09] VITALS: BP 119/73; PULSE 72; RESP 16; TEMP 36.3; O2SAT 97
[2024-01-29] MEDS: CLONazepam 1 mg Tablet PO (21:22)
[2024-01-29] MEDS: ziprasidone hcl 40 mg Capsule 80 MG PO (21:22)
[2024-01-29] MEDS: trazodone 100 mg Tablet PO (21:23)
[2024-01-29] MEDS: cetirizine 10 mg Tablet PO (21:23)
[2024-01-30 06:00] VITALS: BP 104/65; PULSE 87; RESP 16; TEMP 36.6; O2SAT 96
[2024-01-30] MEDS: levothyroxine 88 mcg Tablet PO (06:13)
[2024-01-30] MEDS: dicyclomine 10 mg Capsule PO ×2 (08:15→15:38)
[2024-01-30] MEDS: buPROPion XL (24 HR) 150 mg Tablet PO (08:16)
[2024-01-30] MEDS: donepezil 5 MG Tablet PO (08:16)
[2024-01-30] MEDS: aspirin 81 mg EC Tablet PO (08:16)
[2024-01-30] MEDS: paliperidone ER 3 mg Tablet PO (08:16)
[2024-01-30] MEDS: duloxetine 60 mg Capsule PO (08:16)
[2024-01-30] MEDS: tamsulosin 0.4 mg Capsule 0.400000000000000022 MG PO (08:16)
[2024-01-30] MEDS: isosorbide mononitrate 20 mg Tablet 10 MG PO (08:16)
[2024-01-30] MEDS: pantoprazole DR 40 mg Tablet PO (08:16)
[2024-01-30] MEDS: hyDROXYzine 25 mg Capsule PO ×2 (08:16→15:38)
--- NOTE | 2024-01-30 08:43 | PC.NURSE ---
During assessment, patient pleasant. Patient endorses a little bit of anxiety. Patient denies SI, HI, AVH. Patient denies any needs or concerns.
[2024-01-30 14:00] VITALS: BP 120/74; PULSE 81; RESP 16; TEMP 36.8; O2SAT 98
--- NOTE | 2024-01-30 16:44 | P.NPUPN_ITS ---
Subjective NPU 2 Subjective: 63-year-old male with schizophrenia and dementia admitted with disorganized thinking and behavior. No recent changes noted on the milieu. He had no particular complaints. He continued to appear somewhat confused about his whereabouts but was redirectable. He was unable to describe details as to why he had come into the hospital. Mental Status Exam 2 MSE Comments: This is a healthy white male in hospital scrubs looking older than his stated age with improved grooming and eye contact. No abnormal involuntary motor movements except for psychomotor slowing. He was more cooperative with exam in no acute distress. Speech was decreased in rate and normal in volume usually with word finding difficulties. Mood described as okay. His affect was blunted and mood incongruent. Thought process was linear but superficial. There was evidence of poverty of overall content. Thought content: Patient denied suicidal or homicidal ideation, there were no delusions reported but some paranoia and ideas of reference noted. He denied auditory and visual hallucinations and did not appear at times to be attending to internal stimuli. Attention and concentration were limited and memory was unreliable but none were formally tested. He is alert and oriented x [address] but not date. Insight was limited. His judgment was poor and impulse control appeared to be improving. Vitals/I&O/Wt Last Vital Signs Temp 98.2 F 01/30/24 14:00 Pulse 81 01/30/24 14:00 Resp 16 01/30/24 14:00 BP 120/74 01/30/24 14:00 Pulse Ox 98 01/30/24 14:00 O2 Del Method Room Air 01/30/24 14:00 Data NPU 01/13/24 16:47 01/13/24 16:47 A&P Assessment and plan (1) Acute psychosis: (2) Noncompliance with medication regimen: (3) Diabetes: Qualifiers: Diabetes mellitus type: type 2 Diabetes mellitus [facility] insulin use: without long term acute care registered nurse use Diabetes mellitus complication status: without complication Qualified Code(s): E11.9 - Type 2 diabetes mellitus without complications (4) Hypothyroid: Qualifiers: Hypothyroidism type: unspecified Qualified Code(s): E03.9 - Hypothyroidism, unspecified (5) Agitation: (6) Hallucinations: (7) Major depressive disorder, recurrent, mild: (8) On combination antipsychotic drug therapy: (9) Schizophrenia: Plan This is a 63-year-old male who presented to the emergency department with reports from his guardian of increased bizarre behavior and hallucinations known from a past hospitalization with similar symptoms. 1. Continue Aricept, wellbutrin xl, klonopin and cymbalta as prescribed. Patient is on Invega Sustenna 234 mg IM q. monthly -Given on 01/24/24. Patient seems to be improving based on getting his regular medication during this stay. He remains on Geodon 80mg at night and will discontinue invega oral. 2. Encourage individual group and milieu therapy. 3. continue 15-minute med checks for safety. 4. Get collateral information from daughter/family/guardian. 5. Plan for discharge after his injection given and hopefully to a facility if possible at that time. Level 2 evaluation/interview completed with team seeking placement at [facility] for long term acute care registered nurse facility. Involuntary Hold Information 2 96 Hour Hold: 96 Hour Involuntary Admission: Yes Attestations NPU 2 Medical Necessity Statement*: Inpatient hospitalization is medically necessary and the clinically appropriate intervention at this time. We will monitor medications and make changes as indicated. His likely length of stay is 5-7 days. Awaiting completion of Level 2 signing and then will seek placement at [facility]. Coding Level of Care Code Acute Code for Chg Fwd Diagnoses Acute psychosis F23 Noncompliance with medication regimen Z91.148 Type 2 diabetes mellitus without complication, without long-term current use of insulin E11.9 Diabetes mellitus type: type 2 Diabetes mellitus [facility] insulin use: without [facility] use Diabetes mellitus complication status: without complication Hypothyroidism, unspecified type E03.9 Hypothyroidism type: unspecified Agitation R45.1 Hallucinations R44.3 Major depressive disorder, recurrent, mild F33.0 On combination antipsychotic drug therapy Z79.899 Schizophrenia F20.9
--- NOTE | 2024-01-30 18:40 | PC.NURSE ---
Patient refused 1800 medications, stating I just want to give up. Attempts to convince patient otherwise were unsuccessful. Notified Dr. adhikari via text.
[2024-01-30 19:20] VITALS: BP 129/81; PULSE 77; RESP 15; TEMP 36.7; O2SAT 98
[2024-01-30] MEDS: CLONazepam 1 mg Tablet PO (21:41)
[2024-01-30] MEDS: ziprasidone hcl 40 mg Capsule 80 MG PO (21:41)
[2024-01-31] MEDS: levothyroxine 88 mcg Tablet PO (05:54)
[2024-01-31 06:00] VITALS: BP 130/82; PULSE 101; RESP 16; TEMP 36.3; O2SAT 96
--- NOTE | 2024-01-31 06:15 | PC.NURSE ---
Patient wanted to refuse all medications. Got him to take geodon, klonopin and levothyroxine.
[2024-01-31] MEDS: pantoprazole DR 40 mg Tablet PO (08:32)
[2024-01-31] MEDS: donepezil 5 MG Tablet PO (08:32)
[2024-01-31] MEDS: duloxetine 60 mg Capsule PO ×2 (08:32→17:27)
[2024-01-31] MEDS: buPROPion XL (24 HR) 150 mg Tablet PO (08:32)
[2024-01-31] MEDS: aspirin 81 mg EC Tablet PO (08:32)
[2024-01-31] MEDS: dicyclomine 10 mg Capsule PO ×3 (08:32→19:59)
[2024-01-31] MEDS: tamsulosin 0.4 mg Capsule 0.400000000000000022 MG PO (08:32)
[2024-01-31] MEDS: isosorbide mononitrate 20 mg Tablet 10 MG PO ×2 (08:32→17:27)
[2024-01-31] MEDS: hyDROXYzine 25 mg Capsule PO ×3 (08:33→19:59)
--- NOTE | 2024-01-31 12:49 | PC.NURSE ---
ORDERS TO CONTINUE CLONAZEPAM 1 MG PO AT BEDTIME PER DR. MINOR. ORDERS PLACED.
[2024-01-31 13:43] VITALS: BP 104/69; PULSE 85; RESP 16; TEMP 37.7; O2SAT 97
[2024-01-31] MEDS: acetaminophen 325 mg Tablet 650 MG PO (13:49)
--- NOTE | 2024-01-31 15:13 | W.PM.NPUPNS ---
Subjective NPU Subjective: 63-year-old male with schizophrenia and dementia admitted with disorganized thinking and behavior. No recent changes noted on the milieu. Patient has been pleasant and compliant on the milieu. He had continued to remain confused about his whereabouts and the reason he was brought here. He was redirectable with no acts of aggression noted. He had taken his medications despite stating that he was uncertain as to what he needed these medications for at this time. Mental Status Exam MSE Comments: This is a healthy white male in hospital scrubs looking older than his stated age with improved grooming and eye contact. No abnormal involuntary motor movements except for psychomotor slowing. He was more cooperative with exam in no acute distress. Speech was decreased in rate and normal in volume usually with word finding difficulties. Mood described as good. His affect was blunted and mood incongruent. Thought process was linear but superficial. There was evidence of poverty of overall content. Thought content: Patient denied suicidal or homicidal ideation, there were no delusions reported but some paranoia and ideas of reference noted. He denied auditory and visual hallucinations and did not appear at times to be attending to internal stimuli. Attention and concentration were limited and memory was unreliable but none were formally tested. He is alert and oriented x [address] but not date. Insight was limited. His judgment was poor and impulse control appeared to be improving. 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 insulin use: without [facility] use Diabetes mellitus complication status: without complication Qualified Code(s): E11.9 - Type 2 diabetes mellitus without complications (4) Hypothyroid: Qualifiers: Hypothyroidism type: unspecified Qualified Code(s): E03.9 - Hypothyroidism, unspecified (5) Agitation: (6) Hallucinations: (7) Major depressive disorder, recurrent, mild: (8) On combination antipsychotic drug therapy: (9) Schizophrenia: Plan This is a 63-year-old male who presented to the emergency department with reports from his guardian of increased bizarre behavior and hallucinations known from a past hospitalization with similar symptoms. 1. Continue Aricept, wellbutrin xl, klonopin and cymbalta as prescribed. Patient is on Invega Sustenna 234 mg IM q. monthly -Given on 01/24/24. Patient seems to be improving based on getting his regular medication during this stay. He remains on Geodon 80mg at night and will discontinue invega oral. 2. Encourage individual group and milieu therapy. 3. continue 15-minute med checks for safety. 4. Get collateral information from daughter/family/guardian. 5. Level 2 evaluation/interview completed today with team seeking placement at [facility] facility. Involuntary Hold Information 96 Hour Hold: 96 Hour Involuntary Admission: Yes Attestations NPU Medical Necessity Statement*: Inpatient hospitalization is medically necessary and the clinically appropriate intervention at this time. We will monitor medications and make changes as indicated. His likely length of stay is 5-7 days. Awaiting completion of Level 2 signing and then will seek placement at [facility]. Coding Level of Care Code Acute Code for Chg Fwd Diagnoses Acute psychosis F23 Noncompliance with medication regimen Z91.148 Type 2 diabetes mellitus without complication, without long-term current use of insulin E11.9 Diabetes mellitus type: type 2 Diabetes mellitus termite exterminator helper insulin use: without [facility] use Diabetes mellitus complication status: without complication Hypothyroidism, unspecified type E03.9 Hypothyroidism type: unspecified Agitation R45.1 Hallucinations R44.3 Major depressive disorder, recurrent, mild F33.0 On combination antipsychotic drug therapy Z79.899 Schizophrenia F20.9
[2024-01-31] MEDS: atorvastatin 40 mg Tablet PO (17:27)
[2024-01-31] MEDS: nicotine 4 mg lozenge MUCOUS MEM (18:30)
[2024-01-31] MEDS: ziprasidone hcl 40 mg Capsule 80 MG PO (19:58)
[2024-01-31] MEDS: cetirizine 10 mg Tablet PO (19:58)
[2024-01-31] MEDS: CLONazepam 1 mg Tablet PO (19:59)
[2024-01-31] MEDS: trazodone 100 mg Tablet PO (19:59)
[2024-01-31 20:00] VITALS: BP 106/65; PULSE 72; RESP 18; TEMP 36.3; O2SAT 98
[2024-01-31] MEDS: simethicone 80 mg Chew PO (20:50)
[2024-02-01] MEDS: acetaminophen 325 mg Tablet 650 MG PO (00:27)
[2024-02-01 06:00] VITALS: BP 121/82; PULSE 114; RESP 16; TEMP 36.2; O2SAT 98
[2024-02-01] MEDS: levothyroxine 88 mcg Tablet PO (06:06)
[2024-02-01] MEDS: isosorbide mononitrate 20 mg Tablet 10 MG PO ×2 (08:34→17:51)
[2024-02-01] MEDS: aspirin 81 mg EC Tablet PO (08:35)
[2024-02-01] MEDS: duloxetine 60 mg Capsule PO ×2 (08:35→17:51)
[2024-02-01] MEDS: pantoprazole DR 40 mg Tablet PO (08:35)
[2024-02-01] MEDS: hyDROXYzine 25 mg Capsule PO ×3 (08:35→20:13)
[2024-02-01] MEDS: tamsulosin 0.4 mg Capsule 0.400000000000000022 MG PO (08:35)
[2024-02-01] MEDS: buPROPion XL (24 HR) 150 mg Tablet PO (08:35)
[2024-02-01] MEDS: donepezil 5 MG Tablet PO (08:35)
[2024-02-01] MEDS: dicyclomine 10 mg Capsule PO ×3 (08:35→20:14)
[2024-02-01 12:20] VITALS: PULSE 77; RESP 16; O2SAT 98
--- NOTE | 2024-02-01 13:40 | P.NPUPN_ITS ---
Subjective NPU 2 Subjective: 64-year-old male with schizophrenia and dementia admitted with disorganized thinking and behavior. Patient had no aggression noted. He was calm and cooperative on the milieu. There was no changes overall in regards to his confusion. There was no evidence of any inappropriate behavior. He continued to remain uncertain as to why he was here in the hospital. He was unaware in regards to today being his birthday. Mental Status Exam 2 MSE Comments: This is a healthy white male in hospital scrubs looking older than his stated age with improved grooming and eye contact. He was very polite and friendly. No abnormal involuntary motor movements except for psychomotor slowing. He was more cooperative with exam in no acute distress. Speech was decreased in rate and normal in volume usually with word finding difficulties. Mood described as okay His affect was blunted and mood incongruent. Thought process was linear but superficial. There was evidence of poverty of overall content. Thought content: Patient denied suicidal or homicidal ideation, there were no delusions reported but some paranoia and ideas of reference noted. He denied auditory and visual hallucinations and did not appear at times to be attending to internal stimuli. Attention and concentration were limited and memory was unreliable but none were formally tested. He is alert and oriented x [address] but not date. Insight was limited. His judgment was poor and impulse control appeared to be improving. Vitals/I&O/Wt Last Vital Signs Temp 97.2 F L 02/01/24 06:00 Pulse 77 02/01/24 12:20 Resp 16 02/01/24 12:20 BP 121/82 02/01/24 06:00 Pulse Ox 98 02/01/24 12:20 O2 Del Method Room Air 02/01/24 12:20 Data NPU 01/13/24 16:47 01/13/24 16:47 A&P Assessment and plan (1) Acute psychosis: (2) Noncompliance with medication regimen: (3) Diabetes: Qualifiers: Diabetes mellitus type: type 2 Diabetes mellitus joint terminal attack controller insulin use: without joint terminal attack controller use Diabetes mellitus complication status: without complication Qualified Code(s): E11.9 - Type 2 diabetes mellitus without complications (4) Hypothyroid: Qualifiers: Hypothyroidism type: unspecified Qualified Code(s): E03.9 - Hypothyroidism, unspecified (5) Agitation: (6) Hallucinations: (7) Major depressive disorder, recurrent, mild: (8) On combination antipsychotic drug therapy: (9) Schizophrenia: Plan This is a 63-year-old male who presented to the emergency department with reports from his guardian of increased bizarre behavior and hallucinations known from a past hospitalization with similar symptoms. 1. Continue Aricept, wellbutrin xl, klonopin and cymbalta as prescribed. Patient is on Invega Sustenna 234 mg IM q. monthly -Given on 01/24/24. Patient seems to be improving based on getting his regular medication during this stay. He remains on Geodon 80mg at night. 2. Encourage individual group and milieu therapy. 3. continue 15-minute med checks for safety. 4. Get collateral information from daughter/family/guardian. 5. Level 2 evaluation/interview completed on 01/31/24 with team seeking placement at custodial facility. Involuntary Hold Information 2 96 Hour Hold: 96 Hour Involuntary Admission: Yes Attestations NPU 2 Medical Necessity Statement*: Inpatient hospitalization is medically necessary and the clinically appropriate intervention at this time. We will monitor medications and make changes as indicated. His likely length of stay is 5-7 days. Awaiting completion of Level 2 signing and then will seek placement at [facility]. Coding Level of Care Code Acute Code for Chg Fwd Diagnoses Acute psychosis F23 Noncompliance with medication regimen Z91.148 Type 2 diabetes mellitus without complication, without long-term current use of insulin E11.9 Diabetes mellitus type: type 2 Diabetes mellitus joint terminal attack controller insulin use: without joint terminal attack controller use Diabetes mellitus complication status: without complication Hypothyroidism, unspecified type E03.9 Hypothyroidism type: unspecified Agitation R45.1 Hallucinations R44.3 Major depressive disorder, recurrent, mild F33.0 On combination antipsychotic drug therapy Z79.899 Schizophrenia F20.9
[2024-02-01 14:00] VITALS: BP 117/76; PULSE 74; RESP 16; O2SAT 97
[2024-02-01] MEDS: atorvastatin 40 mg Tablet PO (17:51)
[2024-02-01 19:38] VITALS: BP 104/67; PULSE 79; RESP 18; TEMP 36.3; O2SAT 98
[2024-02-01] MEDS: ziprasidone hcl 40 mg Capsule 80 MG PO (20:13)
[2024-02-01] MEDS: trazodone 100 mg Tablet PO (20:13)
[2024-02-01] MEDS: cetirizine 10 mg Tablet PO (20:13)
[2024-02-01] MEDS: CLONazepam 1 mg Tablet PO (20:14)
[2024-02-02 06:00] VITALS: BP 101/67; PULSE 82; RESP 16; TEMP 36.4; O2SAT 99
[2024-02-02] MEDS: levothyroxine 88 mcg Tablet PO (06:28)
[2024-02-02] MEDS: isosorbide mononitrate 20 mg Tablet 10 MG PO ×2 (07:58→18:57)
[2024-02-02] MEDS: buPROPion XL (24 HR) 150 mg Tablet PO (07:59)
[2024-02-02] MEDS: hyDROXYzine 25 mg Capsule PO ×3 (07:59→20:13)
[2024-02-02] MEDS: aspirin 81 mg EC Tablet PO (07:59)
[2024-02-02] MEDS: dicyclomine 10 mg Capsule PO ×3 (07:59→20:13)
[2024-02-02] MEDS: tamsulosin 0.4 mg Capsule 0.400000000000000022 MG PO (07:59)
[2024-02-02] MEDS: donepezil 5 MG Tablet PO (07:59)
[2024-02-02] MEDS: pantoprazole DR 40 mg Tablet PO (07:59)
[2024-02-02] MEDS: duloxetine 60 mg Capsule PO ×2 (07:59→18:58)
[2024-02-02 14:00] VITALS: BP 106/64; PULSE 75; RESP 16; TEMP 36.8; O2SAT 98
--- NOTE | 2024-02-02 14:40 | P.NPUPN_ITS ---
Subjective NPU 2 Subjective: 64-year-old male with schizophrenia and dementia admitted with disorganized thinking and behavior. The patient reported that he was doing well. He was pleasant and cooperative on the milieu. The patient continues to await placement while under guardianship. There were no side effects reported from his medications. He was compliant and redirectable. Mental Status Exam 2 MSE Comments: This is a healthy white male in hospital scrubs looking older than his stated age with improved grooming and eye contact. He was very polite and friendly. No abnormal involuntary motor movements except for psychomotor slowing. He was cooperative with exam in no acute distress. Speech was normal in rate and normal in volume usually with word finding difficulties. Mood described as all right. His affect was restricted in range. Thought process was linear but superficial. There was evidence of poverty of overall content. Thought content: Patient denied suicidal or homicidal ideation, there were no delusions reported but some paranoia and ideas of reference noted. He denied auditory and visual hallucinations and did not appear at times to be attending to internal stimuli. Attention and concentration were limited and memory was unreliable but none were formally tested. He is alert and oriented x [address] but not date. Insight was limited. His judgment was poor and impulse control appeared to be improving. Vitals/I&O/Wt Last Vital Signs Temp 98.2 F 02/02/24 14:00 Pulse 75 02/02/24 14:00 Resp 16 02/02/24 14:00 BP 106/64 02/02/24 14:00 Pulse Ox 98 02/02/24 14:00 O2 Del Method Room Air 02/02/24 14:00 Weight last 48 hrs Weight 69.944 kg Data NPU 01/13/24 16:47 01/13/24 16:47 A&P Assessment and plan (1) Acute psychosis: (2) Noncompliance with medication regimen: (3) Diabetes: Qualifiers: Diabetes mellitus type: type 2 Diabetes mellitus alf insulin use: without alf use Diabetes mellitus complication status: without complication Qualified Code(s): E11.9 - Type 2 diabetes mellitus without complications (4) Hypothyroid: Qualifiers: Hypothyroidism type: unspecified Qualified Code(s): E03.9 - Hypothyroidism, unspecified (5) Agitation: (6) Hallucinations: (7) Major depressive disorder, recurrent, mild: (8) On combination antipsychotic drug therapy: (9) Schizophrenia: Plan This is a 63-year-old male who presented to the emergency department with reports from his guardian of increased bizarre behavior and hallucinations known from a past hospitalization with similar symptoms. 1. Continue Aricept, wellbutrin xl, klonopin, trazodone and cymbalta as prescribed. Patient is on Invega Sustenna 234 mg IM q. monthly -Given on 01/24/24. Patient seems to be improving based on getting his regular medication during this stay. He remains on Geodon 80mg at night. 2. Encourage individual group and milieu therapy. 3. continue 15-minute med checks for safety. 4. Get collateral information from daughter/family/guardian. 5. Level 2 evaluation/interview completed on 01/31/24 with team seeking placement at alf facility. Involuntary Hold Information 2 96 Hour Hold: 96 Hour Involuntary Admission: Yes Attestations NPU 2 Medical Necessity Statement*: Inpatient hospitalization is medically necessary and the clinically appropriate intervention at this time. We will monitor medications and make changes as indicated. His likely length of stay is 5-7 days. Awaiting completion of Level 2 signing and then will seek placement at [facility]. 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
[2024-02-02] MEDS: atorvastatin 40 mg Tablet PO (18:58)
[2024-02-02] MEDS: ziprasidone hcl 40 mg Capsule 80 MG PO (20:13)
[2024-02-02] MEDS: cetirizine 10 mg Tablet PO (20:13)
[2024-02-02] MEDS: trazodone 100 mg Tablet PO (20:13)
[2024-02-02] MEDS: CLONazepam 1 mg Tablet PO (20:13)
[2024-02-02] MEDS: simethicone 80 mg Chew PO (20:45)
[2024-02-02 21:58] VITALS: BP 123/80; PULSE 81; RESP 18; O2SAT 98
[2024-02-03 06:00] VITALS: BP 115/78; PULSE 80; RESP 18; O2SAT 99
[2024-02-03] MEDS: levothyroxine 88 mcg Tablet PO (06:16)
[2024-02-03] MEDS: hyDROXYzine 25 mg Capsule PO ×3 (08:19→20:31)
[2024-02-03] MEDS: duloxetine 60 mg Capsule PO ×2 (08:19→17:28)
[2024-02-03] MEDS: aspirin 81 mg EC Tablet PO (08:19)
[2024-02-03] MEDS: dicyclomine 10 mg Capsule PO ×3 (08:19→20:30)
[2024-02-03] MEDS: isosorbide mononitrate 20 mg Tablet 10 MG PO ×2 (08:19→17:28)
[2024-02-03] MEDS: donepezil 5 MG Tablet PO (08:19)
[2024-02-03] MEDS: tamsulosin 0.4 mg Capsule 0.400000000000000022 MG PO (08:19)
[2024-02-03] MEDS: buPROPion XL (24 HR) 150 mg Tablet PO (08:19)
[2024-02-03] MEDS: pantoprazole DR 40 mg Tablet PO (08:19)
--- NOTE | 2024-02-03 10:26 | PC.NURSE ---
Room searched for contraband. None found.
[2024-02-03 14:00] VITALS: BP 105/69; PULSE 76; RESP 18; TEMP 36.6; O2SAT 97
--- NOTE | 2024-02-03 17:02 | P.NPUPN_ITS ---
Subjective NPU 2 Subjective: 64-year-old male with schizophrenia and dementia admitted with disorganized thinking and behavior. Patient was pleasant and cooperative on the unit. He appeared in no acute distress. He reported no sleep continuity disruption. There is no episodes of aggression noted. He no side effects were noted from his medication regimen. Mental Status Exam 2 MSE Comments: This is a healthy white male in hospital scrubs looking older than his stated age with improved grooming and eye contact. He was very polite and friendly. No abnormal involuntary motor movements except for psychomotor slowing. He was cooperative with exam in no acute distress. Speech was normal in rate and normal in volume usually with word finding difficulties. Mood described as good. His affect remained flat. Thought process was linear but superficial. There was evidence of poverty of overall content. Thought content: Patient denied suicidal or homicidal ideation, there were no delusions reported but some paranoia and ideas of reference noted. He denied auditory and visual hallucinations and did not appear at times to be attending to internal stimuli. Attention and concentration were limited and memory was unreliable but none were formally tested. He is alert and oriented x [address] but not date. Insight was limited. His judgment was poor and impulse control appeared to be improving. Vitals/I&O/Wt Last Vital Signs Temp 97.9 F 02/03/24 14:00 Pulse 76 02/03/24 14:00 Resp 18 02/03/24 14:00 BP 105/69 02/03/24 14:00 Pulse Ox 97 02/03/24 14:00 O2 Del Method Room Air 02/03/24 14:00 02/03/24 02/03/24 02/03/24 06:59 14:59 22:59 Intake Total 1180 / 1180 Balance 1180 / 1180 Weight last 48 hrs Weight 69.944 kg Data NPU 01/13/24 16:47 01/13/24 16:47 A&P Assessment and plan (1) Acute psychosis: (2) Noncompliance with medication regimen: (3) Diabetes: Qualifiers: Diabetes mellitus type: type 2 Diabetes mellitus [facility] insulin use: without meter shop superintendent use Diabetes mellitus complication status: without complication Qualified Code(s): E11.9 - Type 2 diabetes mellitus without complications (4) Hypothyroid: Qualifiers: Hypothyroidism type: unspecified Qualified Code(s): E03.9 - Hypothyroidism, unspecified (5) Agitation: (6) Hallucinations: (7) Major depressive disorder, recurrent, mild: (8) On combination antipsychotic drug therapy: (9) Schizophrenia: Plan This is a 63-year-old male who presented to the emergency department with reports from his guardian of increased bizarre behavior and hallucinations known from a past hospitalization with similar symptoms. 1. Continue Aricept, wellbutrin xl, klonopin, trazodone and cymbalta as prescribed. Patient is on Invega Sustenna 234 mg IM q. monthly -Given on 01/24/24. Patient seems to be improving based on getting his regular medication during this stay. He remains on Geodon 80mg at night. 2. Encourage individual group and milieu therapy. 3. continue 15-minute med checks for safety. 4. Get collateral information from daughter/family/guardian. 5. Level 2 evaluation/interview completed on 01/31/24 with patient to [facility]. Involuntary Hold Information 2 96 Hour Hold: 96 Hour Involuntary Admission: Yes Attestations NPU 2 Medical Necessity Statement*: Inpatient hospitalization is medically necessary and the clinically appropriate intervention at this time. We will monitor medications and make changes as indicated. His likely length of stay is 1-2 days. Awaiting completion of Level 2 signing and then will seek placement at [facility]. Coding Level of Care Code Acute Code for [facility] Fwd Diagnoses Acute psychosis F23 Noncompliance with medication regimen Z91.148 Type 2 diabetes mellitus without complication, without long-term current use of insulin E11.9 Diabetes mellitus type: type 2 Diabetes mellitus meter shop superintendent insulin use: without meter shop superintendent use Diabetes mellitus complication status: without complication Hypothyroidism, unspecified type E03.9 Hypothyroidism type: unspecified Agitation R45.1 Hallucinations R44.3 Major depressive disorder, recurrent, mild F33.0 On combination antipsychotic drug therapy Z79.899 Schizophrenia F20.9
[2024-02-03] MEDS: atorvastatin 40 mg Tablet PO (17:28)
[2024-02-03] MEDS: ziprasidone hcl 40 mg Capsule 80 MG PO (20:30)
[2024-02-03] MEDS: cetirizine 10 mg Tablet PO (20:30)
[2024-02-03] MEDS: CLONazepam 1 mg Tablet PO (20:31)
[2024-02-03] MEDS: trazodone 100 mg Tablet PO (20:31)
[2024-02-03 21:04] VITALS: BP 120/76; PULSE 91; RESP 18; TEMP 36.7; O2SAT 99
[2024-02-04] MEDS: levothyroxine 88 mcg Tablet PO (05:44)
[2024-02-04 06:00] VITALS: BP 112/75; PULSE 86; RESP 18; TEMP 36.4; O2SAT 97
[2024-02-04 07:41] VITALS: BP 112/75; PULSE 86; RESP 18; TEMP 36.4; O2SAT 97
[2024-02-04] MEDS: dicyclomine 10 mg Capsule PO (09:20)
[2024-02-04] MEDS: donepezil 5 MG Tablet PO (09:20)
[2024-02-04] MEDS: duloxetine 60 mg Capsule PO (09:20)
[2024-02-04] MEDS: tamsulosin 0.4 mg Capsule 0.400000000000000022 MG PO (09:20)
[2024-02-04] MEDS: isosorbide mononitrate 20 mg Tablet 10 MG PO (09:20)
[2024-02-04] MEDS: hyDROXYzine 25 mg Capsule PO (09:20)
[2024-02-04] MEDS: aspirin 81 mg EC Tablet PO (09:20)
[2024-02-04] MEDS: buPROPion XL (24 HR) 150 mg Tablet PO (09:20)
[2024-02-04] MEDS: pantoprazole DR 40 mg Tablet PO (09:20)
--- NOTE | 2024-02-04 11:12 | PC.NURSE ---
gave report to nurse gibbons rn at [facility] @ [phone]. pt left facility at [phone]. with [employer]
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
== END 2024-02-04 11:02 | disposition skilled nursing facility (03) | DRG 885 ==
LOC: ER 21:13 → NP 21:19
PROVIDERS: Admitting Provider Psychiatry & Neurology Psychiatry; Emergency Provider Emergency Medicine; PCP Nurse Practitioner; Visit Provider Psychiatry & Neurology Psychiatry
DX: F20.9 Schizophrenia, unspecified (principal); F03.911 Unspecified dementia, unspecified severity, with agitation; F33.0 Major depressive disorder, recurrent, mild; E03.9 Hypothyroidism, unspecified; Z91.199 Patient's noncompliance with other medical treatment and regimen due to unspecified reason; E11.9 Type 2 diabetes mellitus without complications; Z79.82 Long term (current) use of aspirin; Z72.0 Tobacco use
CPT/HCPCS: 71045; 80053; 80306; 80307; 81001; 84443; 85025; 87426; 87804; 93005; 96372; 97150; 97165; 99285; J1200; J1630; J2060; J3535